=== PATIENT | female | born 1955 | race Caucasian/White ===

== ENCOUNTER 2021-03-27 18:45 | Emergency (ER) | payer MEDICARE, SELFPAY ==
[2021-03-27 18:55] VITALS: BP 131/81; PULSE 69; RESP 18; TEMP 36.7; O2SAT 100; BMI 24.3
--- NOTE | 2021-03-27 19:14 | HMH.EDUTC ---
[facility] – [place] Disposition Clinical Impression: Exposure to COVID-19 virus Disposition: Home, Self-Care Condition on Discharge: Good Instructions: Preventing the Spread of Coronavirus Discharge Instructions Additional Instructions: Drink plenty of fluids. Take tylenol for pain or fever. Return if you begin to have difficulty breathing. Follow up with your regular doctor. GO TO THE ER FOR ANY WORSENING SYMPTOMS Referrals: Faina Benson MD [Primary Care Provider] - Time of Disposition: 19:15 Medical Decision Making - Medical Records Medical records reviewed: No: I reviewed the patient's medical records. - Yeison Inquiry Pt receiving controlled substance: No Vital Signs: 03/27/21 18:55 03/27/21 19:16 Temperature 98.1 F 98.1 F Temperature Source Oral Pulse Rate 69 Pulse Rate [Left Brachial] 69 Respiratory Rate 18 18 Blood Pressure 131/81 Blood Pressure [Left Arm] 131/81 Blood Pressure Mean [Left Arm] 97 Blood Pressure Source [Left Arm] Automatic Cuff Blood Pressure Position [Left Arm] Sitting 02 Sat by Pulse Oximetry 100 Oxygen Delivery Method Room Air Orders (Tests/Meds): ORDERS Category Date Time Status Covid-19 Nasal PCR ([facility]) Routine Lab 03/27/21 19:00 Received [facility] [place] HPI - General Stated complaint: covid test Time Seen by Provider: 03/27/21 19:14 Mode of Arrival: Ambulatory Source of Information: Patient Limitations: No Limitations Description of Symptoms (Recalled from Triage Doc. by RN): PATIENT IS NEEDING COVID TEST FOR INTERNATIONAL TRAVEL HEENT Symptoms (Recalled from RN notes): No Resp Symptoms (Recalled from RN notes): No Skin Symptoms (Recalled from RN notes): No MS Symptoms (Recalled from RN notes): No Functional Status (Recalled from RN notes): WNL - History of Present Illness Provider Complaint: She is here for a covid test. - Worker's Comp Is this a Worker's Comp case?: No [facility] History - Hepatitis A Screen Drug use history?: No High risk sexual behaviors?: No History of sexually transmitted infection?: No Currently employed?: No Childcare worker?: No Do you have indoor plumbing?: Yes Do you have electricity?: Yes Attestation statement:: This patient has been screened for Hepatitis A risk factors. I have reviewed the patient's past medical history: Yes ROS Obtained: Yes All systems reviewed & no additional complaints - Constitutional Constitutional: Reports system reviewed and no additional complaints, except as docu - Eyes Eyes: Reports system reviewed and no additional complaints, except as docu - ENT Ears, Nose, Mouth, and Throat: Reports system reviewed and no additional complaints, except as docu - Cardiovascular Cardiovascular: Reports system reviewed and no additional complaints, except as docu - Respiratory Respiratory: Reports system reviewed and no additional complaints, except as docu - Gastrointestinal Gastrointestingal: Reports: system reviewed and no additional complaints, except as docu Physical Exam - General General appearance: alert, in no apparent distress - Head Head exam: atraumatic, normocephalic, normal inspection - Eye Eye exam: Present: normal appearance, PERRL, EOMI - ENT ENT exam: Present: normal exam, normal oropharynx, mucous membranes moist, TM's normal bilaterally, normal external ear exam - Neck Neck exam: Present: normal inspection, full ROM, trachea midline. Absent: meningismus, lymphadenopathy - Chest Chest inspection: Present: normal inspection, symmetric chest wall rise. Absent: tenderness - Respiratory Respiratory exam: Present: normal lung sounds bilaterally. Absent: respiratory distress - Cardiovascular Cardiovascular exam: Present: regular rate, normal rhythm. Absent: JVD - Abdominal Exam Abdominal exam: Present: soft, normal bowel sounds. Absent: distention, tenderness, guarding - Extremities Exam Extremities exam: Present: normal inspection, full ROM, normal
[2021-03-27 19:16] VITALS: BP 131/81; PULSE 69; RESP 18; TEMP 36.7; O2SAT 100
== END 2021-03-27 19:19 | disposition home or self-care (01) ==
PROVIDERS: Emergency Provider Nurse Practitioner Family; PCP Pediatrics
DX: Z11.52 Encounter for screening for COVID-19 (principal)
CPT/HCPCS: G0463; 99202; U0003

== ENCOUNTER 2022-03-22 11:42 | Emergency (ER) | payer MEDICARE, SELFPAY ==
--- NOTE | 2022-03-22 12:03 | XR_ITS ---
PROCEDURE INFORMATION: Exam: XR Right Foot Exam date and time: 03/22/2022 12:04 PM Age: 66 years old Clinical indication: Injury or trauma; Fall; Blunt trauma; Foot; Right; Patient HX: Patient fell down some steps yesterday. TECHNIQUE: Imaging protocol: XR Right foot. Views: 3 or more views. COMPARISON: CR XR ANKLE RT MIN 3V 03/22/2022 12:02 PM FINDINGS: Bones/joints: Acute minimally displaced, comminuted fracture of the 1st proximal phalanx with extension into the 1st MTP joint. Osteopenia. Partially imaged hardware in the distal tibia and fibula. Soft tissues: Similar punctate densities in the plantar soft tissues of the midfoot. IMPRESSION: Acute minimally displaced, comminuted fracture of the 1st proximal phalanx with extension into the 1st MTP joint.
--- NOTE | 2022-03-22 12:03 | XR_ITS ---
PROCEDURE INFORMATION: Exam: XR Right Ankle Exam date and time: 03/22/2022 12:02 PM Age: 66 years old Clinical indication: Injury or trauma; Fall; Blunt trauma; Prior surgery; Surgery date: 6+ months; Surgery type: Patient had right ankle surgery 6 years ago when she fell down some steps. ; Patient HX: Fell down steps yesterday. TECHNIQUE: Imaging protocol: XR Right ankle. Views: 3 or more views. COMPARISON: No relevant prior studies available. FINDINGS: Bones/joints: No acute fracture or malalignment. Status post ORIF of the lateral malleolus and distal tibia. Hardware appears intact. Osteopenia. Soft tissues: Normal. IMPRESSION: No acute fracture or malalignment.
[2022-03-22 12:27] VITALS: BP 112/76; PULSE 66; RESP 19; TEMP 36.9; O2SAT 100; BMI 25.0
--- NOTE | 2022-03-22 12:37 | HMH.EDUTC ---
[facility] Clinical Impression: Fracture, toe Qualifiers: Encounter type: initial encounter Toe: great toe Fracture type: closed Phalanx: proximal Fracture alignment: nondisplaced Laterality: right Qualified Code(s): S92.414A - Nondisplaced fracture of proximal phalanx of right great toe, initial encounter for closed fracture Disposition: Home, Self-Care Condition on Discharge: Good Instructions: Toe Fracture, DI for Toe Fracture, How To Perform RICE (Rest, Ice, Compress, Elevate), Ibuprofen, How to Use a Walking Boot Additional Instructions: *weight bearing as tolerated *RICE, Rest the extremity, Ice 15-20 minutes 3-4 times daily, Compress- wear the dustin wrap as discussed as much as possible to help reduce swelling and pain, Elevate the extremity when at rest *Dustin wrap/Walking boot is for support and help control swelling, use it except in the shower. Be sure that is not to tight but not to loose either *Elevate when resting *Ibuprofen 600-800mg every 6-8 hours as needed for pain an inflammation. If need something more can take Tylenol in between doses of Ibuprofen to help Immediately follow up with your family doctor for new or worsening of symptoms, or no noticeable improvement over the next 3-5 days Call Orthopedic office in the morning to make appointment with Dr Kearney on Wednesday You was given an order for repeat xray of foot on Wednesday prior to appointment so make sure that you arrive early for that appointment Return if needed Straight to ER if any life threatening Referrals: Provider,MD Teofilo [Primary Care Provider] - Bijan Kearney JR, MD [Physician] - 03/27/22 (Call office in the morning for appointment for Wednesday make sure to arrive early for repeat xray of foot) Time of Disposition: 12:49 Medical Decision Making - Yeison Inquiry Pt receiving controlled substance: No Yeison was queried for this patient: No Vital Signs: 03/22/22 12:27 Temperature 98.4 F Temperature Source Oral Pulse Rate [Left] 66 Respiratory Rate 19 Blood Pressure [Right Arm] 112/76 Blood Pressure Mean [Right Arm] 88 02 Sat by Pulse Oximetry 100 - Radiology Data #1 Image(s): Ankle Image Reviewed: Yes I reviewed the patient's radiology image Preliminary Findings: No Fracture Seen Hardware appears intake no acute fractures or changes #2 Image(s): Foot/Toes Image Reviewed: Yes I have reviewed radiologist's interpretation Acute minimally displaced, comminuted fracture of the 1st proximal phalanx with extension into the 1st MTP joint. - Physician Consults Physician Consulted: Dr Kearney Time: 12:41 Reason -: Orthopedic Eval/Care Comment/Response: Spoke with Dr Kearney he advised to place patient in Post op shoe or Walking boot and he would see her in the office on Wednesday and wanted to have patient repeat xray prior to appointment Patient to be given outpt order for xray Medical Decision Narrative: Dr Kearney requesting repeat xray of foot prior to appointment and will see her in the office on Wednesday patient will be given outpatient order for xray [facility] [facility] [place] - General Stated complaint: AO 03/21 rt foot pain Time Seen by Provider: 03/22/22 12:37 Mode of Arrival: Ambulatory Source of Information: Patient Limitations: No Limitations Description of Symptoms (Recalled from Triage Doc. by RN): pt fell down the stairs yesterday. hurt big toe on right foot HEENT Symptoms (Recalled from RN notes): No Resp Symptoms (Recalled from RN notes): No Skin Symptoms (Recalled from RN notes): No MS Symptoms (Recalled from RN notes): No Functional Status (Recalled from RN notes): wnl - History of Present Illness Provider Complaint: Patient states that she was coming down the stairs yesterday when she fell and hurt her right foot States that she has been having swelling and bruising to her right great toe and hurts when she tries to walk on it State that today the bruising was worse so she came in Denies any other injury - Rela
[2022-03-22 12:57] VITALS: BP 112/76; PULSE 66; RESP 19; TEMP 36.9
== END 2022-03-22 12:58 | disposition home or self-care (01) ==
PROVIDERS: Emergency Provider Nurse Practitioner
DX: S92.414A Nondisplaced fracture of proximal phalanx of right great toe, initial encounter for closed fracture (principal)
CPT/HCPCS: 73610; 73630; 99213; G0463

== ENCOUNTER 2022-09-25 08:24 | Emergency (ER) | payer MEDICARE, SELFPAY ==
[2022-09-25 09:00] VITALS: BP 153/75; PULSE 72; RESP 22; TEMP 37.1; O2SAT 97; BMI 25.8
--- NOTE | 2022-09-25 09:27 | EXP.UTC ---
Discharge Plan Disposition Patient Disposition: Home, Self-Care Condition: Good Prescriptions Prescriptions: New sulfamethoxazole-trimethoprim [Bactrim DS] 800-160 mg tablet 1 tab PO Q12H Qty: 20 0RF mupirocin 2 % ointment 1 applic topical TID Qty: 22 0RF Rx Instructions: apply to area on right upper leg cephalexin 500 mg tablet 500 mg PO QID 10 Days Qty: 40 0RF Referrals Follow up/Referrals: Faina Benson MD [Primary Care Provider] - See instructions Activity Restrictions/Add. Instructions Additional Instructions/Restrictions: *Start antibiotic(s) immediately and be sure to take as ordered for the FULL length of time although you may be feeling better or start to see improvement in the next 24-48 hours *Monitor closely. Outlined redness so that you can monitor easier. Follow up immediately for new or worsening symptoms including but not limited to redness, swelling, streaking from site fever or chills. *Warm compress 15 minutes 3-4 times day, sitting in warm epson salt water may help also *Never squeeze or pop these on your own. Seek immediate medical attention next time this occurs *Monitor Temp. Tylenol every 4 hours as needed and ibuprofen every 6 hours as needed (as long as your primary care doctor has told you that it is ok to take both. For fever, aches, pain. ER if no less that 101 despite Tylenol and ibuprofen ?Follow up with your family doctor/primary care physician in the next 48-72 hours if no improvement Straight to ER if any life threatening symptoms Clinical Impressions Clinical Impression: Cellulitis Instructions Patient Instructions: Cellulitis, Cephalexin, Trimethoprim/Sulfamethoxazole (Alternative Therapy), Mupirocin Discharge ED Provider: Radha Porras [facility] [place] General Stated complaint: No accident, right leg bump and redness Mode of Arrival: Ambulatory Source of Information: Patient Limitations: No Limitations Time Seen by Provider: 09/25/22 09:27 Description of Symptoms (Recalled from Triage Doc. by RN): PATIENT C/O AN AREA OF REDNESS AND WARMTH TO RIGHT UPPER THIGH THAT STARTED WEDNESDAY MORNING AND HAS GOTTEN WORSE HEENT Symptoms (Recalled from RN notes): No Resp Symptoms (Recalled from RN notes): No Skin Symptoms (Recalled from RN notes): Yes MS Symptoms (Recalled from RN notes): No Functional Status (Recalled from RN notes): WNL History of Present Illness Provider Complaint: Patient states she noticed small hard area on her right upper thigh/buttock area on Wed that was a little sore States that since then it has continued to get worse States that today it was hurting when she would sit on that side and was worried because it was getting bigger so she came in Related Data Previous Rx's Medication Instructions Recorded cephalexin 500 mg tablet 500 mg PO QID 10 days #40 tabs 09/25/22 mupirocin 2 % topical ointment 1 applic topical TID #22 grams 09/25/22 sulfamethoxazole 800 1 tab PO Q12H #20 tabs 09/25/22 mg-trimethoprim 160 mg tablet (Bactrim DS) Allergies Allergy/AdvReac Type Severity Reaction Status Date / Time No Known Allergies Allergy Verified 03/22/22 12:26 Worker's Comp Is this a Worker's Comp case?: No PFSH PFSH Medical History (Updated 09/25/22 @ 09:40 by Radha Porras APRN) Depression Hyperlipidemia Surgical History (Updated 09/25/22 @ 09:21 by Pauline Patel RN) History of appendectomy History of cholecystectomy History of hysterectomy Social History (Updated 09/25/22 @ 09:21 by Pauline Patel RN) Smoking Status: Unknown if ever smoked alcohol intake: never current occupational status: other Travel in the last 8 weeks: None ROS Obtained: Yes All systems reviewed & no additional complaints except as documented and Yes Systems reviewed as appropriate & no additional complaints except as documented Constitutional Constitutional: Reports system reviewed and no additional complaints, except as documented, Repor
[2022-09-25 09:49] VITALS: BP 153/75; PULSE 72; RESP 22; TEMP 37.1; O2SAT 97
== END 2022-09-25 09:53 | disposition home or self-care (01) ==
PROVIDERS: Emergency Provider Nurse Practitioner; PCP Pediatrics
DX: L03.115 Cellulitis of right lower limb (principal)
CPT/HCPCS: 99212; G0463

== ENCOUNTER 2024-08-08 13:23 | Emergency (ER) | payer MEDICARE, SELFPAY ==
--- NOTE | 2024-08-08 13:33 | XR_ITS ---
FINAL REPORT CLINICAL HISTORY: pain, stubbed pinky toe, c/o bruising and pain COMPARISON: 08/15/2017 FINDINGS: Three views show a mildly displaced corner fracture along the medial base of the 5th proximal phalanx. Fracture line extends into the MTP joint. There is mild calcaneal spurring. The joint spaces otherwise appear normal. IMPRESSION: 5th proximal phalanx fracture. Reviewed, Interpreted and Dictated by Marcus Chaudhary MD Transcribed by Vonnie Silver Authenticated and [facility]
[2024-08-08 13:45] VITALS: BP 130/76; PULSE 69; RESP 16; TEMP 36.6; O2SAT 99; BMI 25.8
--- NOTE | 2024-08-08 14:06 | EXP.UTC ---
Discharge Plan Disposition Patient Disposition: Home, Self-Care Condition: Good Prescriptions Prescriptions: No Action sulfamethoxazole-trimethoprim [Bactrim DS] 800-160 mg tablet 1 tab PO Q12H Qty: 20 0RF mupirocin 2 % ointment 1 applic topical TID Qty: 22 0RF Rx Instructions: apply to area on right upper leg cephalexin 500 mg tablet 500 mg PO QID 10 Days Qty: 40 0RF Referrals Follow up/Referrals: Faina Benson MD [Primary Care Provider] - See instructions Lenora Bhardwaj APRN [Nurse Practitioner] - See instructions Huma Mei DPM [Staff Physician] - See instructions Activity Restrictions/Add. Instructions Additional Instructions/Restrictions: *weight bearing as tolerated *RICE, Rest the extremity, Ice 15-20 minutes 3-4 times daily, Compress- wear the abdirizak wrap as discussed as much as possible to help reduce swelling and pain, Elevate the extremity when at rest *Walking boot is for support and help control swelling, use it except in the shower. Be sure that is not to tight but not to loose either *Elevate when resting? *Ibuprofen 600-800mg every 6-8 hours as needed for pain an inflammation. If need something more can take Tylenol in between doses of Ibuprofen to help Immediately follow up with your family doctor for new or worsening of symptoms, or no noticeable improvement over the next 3-5 days Follow up with Podiatry if no improvement or any worsening of symptoms Clinical Impressions Clinical Impression: Fracture, toe Qualifiers: Encounter type: initial encounter Toe: great toe Fracture type: closed Phalanx: proximal Fracture alignment: nondisplaced Laterality: right Qualified Code(s): S92.414A - Nondisplaced fracture of proximal phalanx of right great toe, initial encounter for closed fracture Instructions Patient Instructions: How to Use a Walking Boot, DI for Toe Fracture, Toe Fracture Print Language Print Language: Mongolian Discharge ED Provider: Radha Porras [facility] [place] [place] HPI General Stated complaint: left foot pain Mode of Arrival: Ambulatory Source of Information: Patient Limitations: No Limitations Time Seen by Provider: 08/08/24 13:50 Description of Symptoms (Recalled from Triage Doc. by RN): Reports stubbing her foot on an object and hurt her left foot. HEENT Symptoms (Recalled from RN notes): No Resp Symptoms (Recalled from RN notes): No Skin Symptoms (Recalled from RN notes): No MS Symptoms (Recalled from RN notes): Yes Functional Status (Recalled from RN notes): wnl History of Present Illness Provider Complaint: Patient states that she was helping her son move and she stubbed her little toe States for the last couple of days she has been having pain and swelling in her left little toe and top of foot and hurting when she walks Related Data Previous Rx's ?Medication ?Instructions ?Recorded cephalexin 500 mg tablet 500 mg PO QID 10 days #40 tabs 09/25/22 mupirocin 2 % topical ointment 1 applic topical TID #22 grams 09/25/22 sulfamethoxazole 800 1 tab PO Q12H #20 tabs 09/25/22 mg-trimethoprim 160 mg tablet (Bactrim DS) Allergies Allergy/AdvReac Type Severity Reaction Status Date / Time No Known Allergies Allergy Verified 03/22/22 12:26 Worker's Comp Is this a Worker's Comp case?: No [facility] Disclaimer: The information contained in this section may have been updated after the patient was seen, as this information can be updated by other users. Medical History (Updated 08/08/24 @ 14:12 by Radha Porras APRN) Depression Hyperlipidemia Surgical History (Updated 09/25/22 @ 09:21 by Pauline Patel RN) History of hysterectomy History of cholecystectomy History of appendectomy Social History (Updated 09/25/22 @ 09:40 by Radha Porras APRN) Smoking Status: Unknown if ever smoked alcohol intake: never current occupational status: other Travel in the last 8 weeks: None ROS Obtained: Yes All systems reviewed & no additional complaints except as documented and Yes Systems reviewed as appropriate & no additional complaints except as documented Constitutional Constitutional: Reports system reviewed and no additional complaints, except as documented and Reports as per HPI ENT Ears, Nose, Mouth, and Throat: Reports system reviewed and no additional complaints, except as documented and Reports as per HPI Cardiovascular Cardiovascular: Reports system reviewed and no additional complaints, except as documented and Reports as per HPI Musculoskeletal Musculoskeletal: Reports system reviewed and no additional complaints, except as documented, Reports as per HPI and Reports other Comments: Pain swelling and bruising to left little toe and top of foot Physical Exam General General appearance: alert and in no apparent distress ENT ENT exam: Present mucous membranes moist Respiratory Respiratory exam: Present normal lung sounds bilaterally; Absent respiratory distress or wheezes Cardiovascular Cardiovascular exam: Present regular rate, normal rhythm and normal heart sounds Expanded Lower Extremity Exam Left: Foot/toe exam: Present tenderness, swelling and ecchymosis Top foot image: 1. mild bruising and swelling noted Neurovascular/Tendon exam: Present normal capillary refill Gait: observed and limited by pain Neurological Exam Neurological exam: Present alert, oriented X3 and normal gait Medical Decision Making Medical Records Screening: Per USPSTF and CDC recommendations, given the prevalence of disease in our region, it is our hospital?s policy to screen for HIV and viral Hepatitis for all patients aged 18 and over and those with ongoing risk factors. Yeison Inquiry Pt receiving controlled substance: No Yeison was queried for this patient: No Vital Signs: 08/08/24 13:45 Temperature 97.9 F Temperature Source Oral Pulse Rate [Radial] 69 Respiratory Rate 16 Blood Pressure [Right Arm] 130/76 Blood Pressure Mean [Right Arm] 94 Blood Pressure Source [Right Arm] Automatic Cuff Blood Pressure Position [Right Arm] Sitting 02 Sat by Pulse Oximetry 99 Oxygen Delivery Method Room Air Orders (Tests/Meds): ORDERS Category Date Time Status Foot XR left minimum 3 views [XR foot LT min 3V] Stat Exams 08/08/24 13:33 Taken Radiology Data #1: Image(s): Foot/Toes Image Reviewed: Yes I reviewed the patient's radiology image Fracture proximal phalanx 5th toe Medical Decision Narrative: Patient was given writen prescription to take to [facility] for short cam walking boot
[2024-08-08 14:17] VITALS: BP 130/76; PULSE 69; RESP 16; TEMP 36.6; O2SAT 99
== END 2024-08-08 14:18 | disposition home or self-care (01) ==
PROVIDERS: Emergency Provider Nurse Practitioner; PCP Pediatrics
DX: M79.672 Pain in left foot; W23.0XXA Caught, crushed, jammed, or pinched between moving objects, initial encounter; S92.502A Displaced unspecified fracture of left lesser toe(s), initial encounter for closed fracture
CPT/HCPCS: 73630; 99212; 99213; G0463

== ENCOUNTER 2024-11-03 11:00 | Outpatient (RCR) | payer MEDICARE, SELFPAY | END 2024-11-03 23:59 | disposition home or self-care (01) | LOC: PT 11:00 | PROVIDERS: PCP Pediatrics; Visit Provider Orthopaedic Surgery | DX: M17.12 Unilateral primary osteoarthritis, left knee (principal); Z96.652 Presence of left artificial knee joint | CPT/HCPCS: 97014; 97016; 97110; 97140; 97163; 97530; 97535; G0283 ==

== ENCOUNTER 2024-12-11 10:00 | Outpatient (RCR) | payer MEDICARE, SELFPAY | END 2024-12-13 23:59 | disposition home or self-care (01) | LOC: PT 10:00 | PROVIDERS: PCP Pediatrics; Visit Provider Orthopaedic Surgery | DX: Z96.652 Presence of left artificial knee joint (principal); M17.12 Unilateral primary osteoarthritis, left knee | CPT/HCPCS: 97110; 97164; 97530 ==

== ENCOUNTER 2024-12-22 08:00 | Outpatient (RCR) | payer MEDICARE, SELFPAY | END 2024-12-22 23:59 | disposition home or self-care (01) | LOC: PT 08:00 | PROVIDERS: Visit Provider Orthopaedic Surgery | DX: M17.12 Unilateral primary osteoarthritis, left knee (principal); Z96.652 Presence of left artificial knee joint | CPT/HCPCS: 97530 ==

== ENCOUNTER 2025-09-05 09:57 | Outpatient (CLI) | payer MEDICARE, SELFPAY ==
--- OUTSIDE RECORDS SUMMARY | 2025-08-22 15:00 | XMS_ITS | Encounter Summary ---
Author Organization [facility] Address [address] [place] [address] Care Team Providers Care Learning Center Coordinator Name Role Phone Faina Benson MD Primary Care Provider [phone] Reason for Referral * Occupational Therapy (Routine) - Closed Specialty Diagnoses / Procedures Referred By Contac t Referred To Contact Diagnoses Arthritis of carpometacarpal (CMC) joint of right thumb Procedures IN OFFICE/OUTPATIENT NEW MODERATE MDM 45 MINUTES Lul Mckeon MD 1760 [facility] [address] [place] [address] Phone: tel: fax: [facility] [address] [place] [address] [address] [place] [address] Phone: tel: fax: Referral ID Status Reason Start Date Expiration Date V isits Requested Visits Authorized [id number] Closed Specialty Services Required 08/22/2025 11/21/2026 1 1 Scheduling Instructions [facility] Hand - evaluate and treat They can be reached at [phone] Reason for Visit * Reason Comments Pain * Consultation (Routine) - Closed Specialty Diagnoses / Procedures Referred By Contact Referred To Contact Orthopedic Surgery Diagnoses Right wrist pain Chronic pain of right thumb Procedures IN OFFICE/OUTPATIENT NEW MODERATE MDM 45 MINUTES Faina Benson MD 100 [facility] 200 [place] [address] Phone: tel: fax: [facility] [address] [address] Phone: tel: fax: Referral ID Status Reason Start Date Expiration Date V isits Requested Visits Authorized [id number] Closed Specialty Services Required 08/07/2025 11/06/2026 1 1 Encounter Details Date Type Department Care Team (Late st Contact Info) Description 08/22/2025 3:00 PM EDT Office Visit [facility] [address] [place] [address] Lul Mckeon MD 1760 [place] [address] Arthritis of carpometacarpal (CMC) joint of right thumb (Primary Dx) Social History Tobacco Use Types Packs/Day Years Used Date Smoking Tobacco: Never Passive Smoke Exposure: Never Smokeless Tobacco: Never Alcohol Use Standard Drinks/Week Comments Yes 0 (1 standard drink = 0.6 oz pure alcohol) 1 glass of wine twice per month PHQ-2 Answer Date Recorded Retired PHQ-9: Brief Depression Severity Measure Score 0 05/11/2023 Abuse Screen Answer Date Recorded Feels Unsafe at Home or Work/School no 09/13/2024 Feels Threatened by Someone no 08/17 Does Anyone Try to Keep You From Having Contact with Others or Doing Things Outside Your Home? no 09/13/2024 Physical Signs of Abuse Present no 09/13/2024 Education Answer Date Recorded Help with school or training? 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 [facility] Office Visit Date: 08/22/2025 Patient Name: Nereyda Butt Date of : 1955 Referring Physician: Faina Benson MD Chief Complaint: Chief Complaint Patient presents with Right Hand - Pain History of Present Illness: Nereyda Butt is a 70 y.o. female presents for evaluation of right basilar thumb pain of over 10 months duration. Reports pain is a 4 out of 10. Reports it is worse with use activity or gripping heavy objects. She has tried bracing anti-inflammatories and oral steroids with minimal improvement inher symptoms. She works as a pharmacist. She denies smoking. She has no other relevant medical history. Subjective Review of Systems: Review of Systems Constitutional: Negative for chills, fever, unexpected weight gain and unexpected weight loss. HENT: Negative for congestion, postnasal drip and rhinorrhea. Eyes: Negative for blurred vision. Respiratory: Negative for shortness of breath. Cardiovascular: Negative for leg swelling. Gastrointestinal: Negative for abdominal pain, nausea and vomiting. Genitourinary: Negative for difficulty urinating. Musculoskeletal: Positive for arthralgias. Negative for gait problem, joint swelling and myalgias. Skin: Negative for skin lesions and wound. Neurological: Negative for dizziness, weakness, light-headedness and numbness. Hematological: Does not bruise/bleed easily. Psychiatric/Behavioral: Negative for depressed mood. Pertinent review of systems per HPI. I reviewed the patient's chief complaint, history of present illness, review of systems, past medical history, surgical history, family history, social history, medications and allergy list in the EMR on 08/22/2025 and agree with the findings above. Objective Vital Signs: Vitals: 08/22/25 1504 BP: 126/78 Weight: 75.2 kg (165 lb 12.8 oz) Height: 169.5 cm (66.73 ) BMI: Body mass index is 26.18 kg/m??. General Appearance: No acute distress. Alert and oriented. Chest: Non-labored breathing on room air. Regular rate and rhythm. Upper Extremity Exam: Patient right thumb CMC. Positive CMC shuck test. Positive grind test. Negative Mango's test.Nontender at the thumb A1 yvan. Negative Tinel over the right carpal tunnel. Negative carpal compression test. Fingers are warm, well-perfused with appropriate capillary refill. Palpable radial pulse. Sensation intact to light touch in median, radial and ulnar nerve distributions. Motor- Fires FPL, ulnar intrinsics, EPL/EDC w/ full active and passive range of motion. Strength intact. Non-tender except for in the areas highlighted Imaging/Studies: Imaging Results (Last 24 Hours) No results found for the last 24 hours. X-ray of the right hand from 06/04/2025 was independently reviewed inter myself demonstrates evidence of moderate to severe right thumb CMC arthritis. EMG nerve conduction studies from outside hospital were independently reviewed interpreted and demonstrate mild right carpal tunnel syndrome Procedures: Procedures Quality Measures: ACP: ACP discussion was deferred. Tobacco: Nereyda Butt reports that she has never smoked. She has never been exposed to tobacco smoke. Efraíns never used smokeless tobacco. Assessment / Plan Assessment/Plan: There are no diagnoses linked to this encounter. Nereyda Rodriguez a 70 y.o. female who presents with: ICD-10-CM ICD-9-CM 1. Arthritis of carpometacarpal (CMC) joint of right thumb M18.11 716.94 Patient presents for evaluation of right basilar thumb pain with evidence of moderate to severe right thumb CMC arthritis. We discussed her diagnosis as well as treatment options going bracing anti-inflammatories corticosteroid injection and surgery. Patient like to trial nonoperative treatment of the right thumb Comfort Cool brace and referral to physical therapy for activity modifications and custom brace. Recommend patient follow-up with me in 3 months for repeat exam Follow Up: Return in about 3 months (around 11/22/2025). Lul Mckeon MD [facility] [place] Hand and Upper Extremity Surgeon documented in this encounter Plan of Treatment Upcoming Encounters Date Type Department Care Team (Late st Contact Info) Description 09/18/2025 8:00 AM EST Office Visit [facility] [address] [address] Adán Contreras MD [address] [address] 11/27/2025 8:30 AM EST Office Visit [facility] [address] [address] Faina Benson MD [address] [address] 12/05/2025 3:00 PM EST Office Visit [facility] [address] [address] Lul Mckeon MD [address] [address] Scheduled Referrals Name Type Priority Associated Diagnoses Orde r Schedule Ambulatory Referral to Occupational Therapy for Evaluation & Treatment Outpatient Referral Routine Arthritis of carpometacarpal (CMC) joint of right thumb Ordered: 08/22/2025 documented as of this encounter Goals Goal Patient Goal Type Associated Problems Recent Progress Patient-Stated? Author Autogenera lara Goal Care Plan Autogenerated Problem No Adán Contreras MD documented as of this encounter Visit Diagnoses Diagnosis Arthritis of carpometacarpal (CMC) joint of right thumb- Primary documented in this encounter Additional Health Concerns Active Problems Noted Date Diagnosed Date Autogenerated Problem 07/11/2025 Assessment Noted Time PHQ-2 Depression Total Score: 1 07/16/20 24 8:32 AM EDT documented as of this encounter Care Teams Learning Center Coordinator Relationship Specialty Start Date End Date Faina Benson MD 100 [facility] 200 [place] [address] PCP - General Internal Medicine 09/15/16 documented as of this encounter
[2025-09-05 15:38] LABS: Influenza A, PCR Not Detected (NotDetected); Influenza B, PCR Not Detected (NotDetected)
[2025-09-05 18:06] LABS: Coronavirus 19, PCR Detected (NotDetected)
--- OUTSIDE RECORDS SUMMARY | 2025-09-06 12:58 | XMS_ITS | Encounter Summary ---
Author Organization [facility] Address [address] [place] [address] Care Team Providers Care Client Manager Large Law Name Role Phone Faina Benson MD Primary Care Provider [phone] Encounter Details Date Type Department Care Team (Late st Contact Info) Description 03/27/2025 Results Follow-Up [facility]EDIAT[facility] [address] [address] Faina Benson MD 100 [facility] 200 [place] [address] Social History Tobacco Use Types Packs/Day Years [...] or training? 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 on file documented as of this encounter Plan of Treatment Upcoming Encounters Date Type Department Care Team (Late st Contact Info) Description 09/18/2025 8:00 AM EST Office Visit [facility] [address] [address] Adán Contreras MD [address] [address] 11/27/2025 8:30 AM EST Office Visit [facility] [address] [address] Faina Benson MD [address] [address] 12/05/2025 3:00 PM EST Office Visit [facility] [address] [address] Lul Mckeon MD [address] [address] documented as of this encounter Visit Diagnoses Not on filedocumented in this encounter Additional Health Concerns Assessment Noted Time PHQ-2 Depression Total Score: 1 05/30/20 24 8:32 AM EDT documented as of this encounter Care Teams Client Manager Large Law Relationship Specialty Start Date End Date Faina Benson MD 100 [facility] 200 [place] [address] PCP - General Internal Medicine 09/15/16 documented as of this encounter
--- OUTSIDE RECORDS SUMMARY | 2025-09-06 12:58 | XMS_ITS | Encounter Summary ---
Author Organization [facility] Address [address] [place] [address] Care Team Providers Care Auctioneer Automobile Name Role Phone Faina Benson MD Primary Care Provider [phone] Encounter Details Date Type Department Care Team (Latest Contact Info) Description 08/22/2025 Travel Social History Tobacco Use Types Packs/Day Years [...] or training? Not on file Preferred Language Occitan 08/30/2024 PHQ-2 Answer Date Recorded Patient Health [...] Description 09/18/2025 8:00 AM EST Office Visit [facility] [address] [facility] 101 [place] [address] Adán Contreras MD [address] [address] 11/27/2025 8:30 AM EST Office Visit [facility] 100 [facility] 200 [place] [address] Faina Benson MD 100 [facility] 200 [place] [address] 12/05/2025 3:00 PM EST Office Visit [facility] [address] [address] Lul Mckeon MD [address] [address] documented as of this encounter Goals Goal Patient Goal Type Associated Problems Recent Progress Patient-Stated? Author Autogenera lara Goal Care Plan Autogenerated Problem No Adán Contreras MD documented as of this encounter Visit Diagnoses Not on filedocumented in this encounter Additional Health Concerns Active Problems Noted Date Diagnosed Date Autogenerated Problem 07/11/2025 Assessment Noted Time PHQ-2 Depression Total Score: 1 05/30/20 24 8:32 AM EDT documented as of this encounter Care Teams Auctioneer Automobile Relationship Specialty Start Date End Date Faina Benson MD 100 [facility] 200 [place] [address] PCP - General Internal Medicine 09/15/16 documented as of this encounter
--- OUTSIDE RECORDS SUMMARY | 2025-09-06 12:58 | XMS_ITS | Encounter Summary ---
Author Organization [facility] Address [address] [place] [address] Care Team Providers Care Medical Assembler Name Role Phone Faina Benson MD Primary Care Provider [phone] Encounter Details Date Type Department Care Team (Late st Contact Info) Description 06/30/2025 Results Follow-Up [facility]AT[facility] [address] [address] Faina Benson MD 100 [facility] 200 [place] [address] Social History Tobacco Use Types [...] or training? Not on file Preferred Language Andorran 08/30/2024 PHQ-2 Answer Date Recorded Patient Health [...] Description 09/18/2025 8:00 AM EST Office Visit [facility] [address] [address] Adán Contreras MD [address] [address] 11/27/2025 8:30 AM EST Office Visit [facility] [address] [address] Faina Benson MD [address] [address] 12/05/2025 3:00 PM EST Office Visit [facility] [address] [address] Lul Mckeon MD [address] [address] documented as of this encounter Visit Diagnoses Not on filedocumented in this encounter Additional Health Concerns Assessment Noted Time PHQ-2 Depression Total Score: 1 05/30/20 24 8:32 AM EDT documented as of this encounter Care Teams Medical Assembler Relationship Specialty Start Date End Date Faina Benson MD 100 [facility] 200 [place] [address] PCP - General Internal Medicine 09/15/16 documented as of this encounter
--- OUTSIDE RECORDS SUMMARY | 2025-09-06 12:58 | XMS_ITS | Clinical Summary ---
Author Organization [facility] Address [facility] [place] [address] Care Team Providers Care Color Paste Mixing Supervisor Name Role Phone Unavailable Primary Care Provider Unavailabl e Social History Tobacco Use Types Packs/Day Years Used Date Smoking Tobacco: Never Assessed Comments Unknown Sex and Gender Information Value Date Recorded Sex Assigned at Not on file Legal Sex Female 10:00 PM EDT Gender Identity Not on file Sexual Orientation Not on file Plan of Treatment Health Maintenance Due Date Last Done Comments Hepatitis C Screening 1955 Mammogram Screening 1994 Colonoscopy 1999 Shingrix (#1) 2004 DEXA Scan 2019 DTap,Tdap,and Td (2 - Td or Tdap) 11/15/2021 11/15/2011 Pneumococcal 50+ (3 of 3 - PCV20 or PCV21) 07/26/2024 07/26/2019, 11/15/2003 Influenza Vaccine (#1) 2025 RSV Vaccine (60+ or ) (1 - 1-dose 75+ series) 2029 HPV Aged Out No longer eligi ble based on patient's age to complete this topic Meningococcal conjugate cheyenne nt 4 (MCV4) Aged Out No longer eligible b ased on patient's age to complete this topic RSV Immunization (<20 months) Aged Out No longer eligible based on patient's age to complete this topic
--- OUTSIDE RECORDS SUMMARY | 2025-09-06 12:58 | XMS_ITS | Continuity of Care Document ---
[facility] Organization [facility] Address [address] [place] [address] Care Team Providers Care Director Targeted Marketing Name Role Phone Faina Benson MD Primary Care Provider [phone] Encounters Date Type Department Care Team Description 08/22/2025 Travel 08/22/2025 3:00 PM EDT Office Visit [facility]THOPEDICS [facility]IC[facility] [address] [facility] MED 101 [place] [address] Lul Mckeon MD Arthritis of carpometacarpal (CMC) joint of right thumb (Primary Dx) 07/03/2025 Refill [facility]ED[facility]ATRICS 100 [facility] 200 [place] [address] Faina Benson MD Situational mixed anxiety and depressive disorder 06/30/2025 Results Follow-Up [facility] 100 [facility] 200 [place] [address] Faina Benson MD 06/30/2025 Telephone [facility] 100 [facility] 200 [place] [address] Faina Benson MD 06/22/2025 Travel 06/22/2025 10:46 AM EDT - 06/22/2025 11:59 PM EDT Hospital Encounter [facility] NEUROLOGY DIAGNOSTICS [address] [facility] MED [address] [place] [address] Faina Benson MD Right hand pain; Paresthesias in right hand; Weakness of right hand Discharge Disposition: Home or Self Care 06/12/2025 Results Follow-Up [facility] 100 [facility] 200 [place] [phone] Faina Benson MD 06/06/2025 External PBMM Data [facility] [address] [facility] [place] [address] Pharmacy, Payor Data 06/04/2025 10:00 AM EDT - 06/04/2025 11:59 PM EDT Hospital Encounter [facility] XRAY AT [address] [address] Faina Benson MD Right hand pain Discharge Disposition: Home or Self Care 06/04/2025 Travel 06/04/2025 8:00 AM EDT Office Visit [facility] [address] [place] [address] Faina Benson MD Medicare annual wellness visit, subsequent (Primary Dx); Encounter for health maintenance examination in adult; Dyslipidemia; OAB (overactive bladder); Primary insomnia; Situational mixed anxiety and depressive disorder; Intraductal papilloma; Age-related osteoporosis without current pathological fracture; Right hand pain; Leukocytes in urine 05/22/2025 External PBMM Data [facility] [address] [place] [address] Pharmacy, Payor Data 04/17/2025 Refill [facility] [address] [place] [address] Faina Benson MD Situational mixed anxiety and depressive disorder 03/27/2025 Results Follow-Up [facility] [address] [place] [address] [address] [place] [address] Faina Benson MD 03/27/2025 Telephone [facility] 100 [facility] 200 [place] [address] Faina Benson MD 03/26/2025 Travel 03/26/2025 8:16 AM EDT - 03/26/2025 11:59 PM EDT Hospital Encounter [facility] [place] [facility] [address] [place] [address] Menopause Discharge Disposition: Home or Self Care 03/26/2025 8:16 AM EDT - 03/26/2025 11:59 PM EDT Hospital Encounter [facility] [address] [place] [address] Encounter for screening mammogram for breast cancer Discharge Disposition: Home or Self Care 03/08/2025 Refill [facility] 100 [facility] 200 [place] [address] Faina Benson MD Dyslipidemia 02/13/2025 Telephone [facility] 100 [facility] 200 [place] [address] Faina Benson MD REQUEST CALL BACK FROM NURSE 01/18/2025 [facility] INTERNAL MEDICINE & PEDIATRICS 100 [facility] 200 [place] [address] Faina Benson MD Situational mixed anxiety and depressive disorder 12/28/2024 [facility] INTERNAL MEDICINE & PEDIATRICS 100 [facility] 200 [place] [address] Faina Benson MD Situational mixed anxiety and depressive disorder 12/26/2024 Travel 12/26/2024 8:40 AM EST Office Visit [facility] [address] [facility] MED [address] [place] [address] Adán Contreras MD Primary osteoarthritis of right knee (Primary Dx); S/P TKR (total knee replacement), left; Right knee pain, unspecified chronicity 12/04/2024 Travel 12/04/2024 9:15 AM EST Office Visit [facility] 100 [facility] 200 [place] [address] Faina Benson MD Dyslipidemia (Primary Dx); Primary insomnia; Situational mixed anxiety and depressive disorder; OAB (overactive bladder); Menopause; Encounter for screening mammogram for breast cancer 10/24/2024 Travel 10/24/2024 9:00 AM EST Office Visit [facility] [address]60 [facility] 101 [place] [address] Adán Contreras MD Status post total left knee replacement (Primary Dx) 10/03/2024 Refill [facility] [address] [facility] 101 [place] [address] Almaz Clayton PA-C 10/03/2024 Travel 10/03/2024 1:30 PM EST Office Visit [facility] [address] [address] Almaz Clayton PA-Obdulia Status post total left knee replacement (Primary Dx) 09/27/2024 Refill [facility] [address] [address] Adán Contreras MD S/P TKR (total knee replacement), left 09/19/2024 Telephone [facility] [address] [facility] 101 [place] [address] Adán Contreras MD 09/13/2024 9:35 AM EDT Anesthesia Event Converted [facility] ANESTHESIA [address] [place] [address] 09/13/2024 Travel 09/13/2024 7:15 AM EDT - 09/13/2024 9:57 AM EDT Surgery [facility] OR [address] [place] [address] Adán Contreras MD TOTAL KNEE ARTHROPLASTY WITH KRISTIN ROBOT LEFT [40792 (CPT )] 09/13/2024 7:26 AM EDT Anesthesia Event [facility] OR [address] [place] [address] Tisha Velez MD 09/13/2024 5:37 AM EDT - 09/13/2024 5:21 PM EDT Hospital Encounter [facility] 3G [address] [place] [address] Adán Contreras MD S/P TKR (total knee replacement), left (Primary Dx); Primary osteoarthritis of left knee; Status post total left knee replacement; Arthritis of knee; OAB (overactive bladder); Situational mixed anxiety and depressive disorder; Primary insomnia; Intraductal papilloma; Other hyperlipidemia; Menopause Discharge Disposition: Home or Self Care 09/06/2024 Transitional Care Management Telephone Encounter [facility] [address] [address] Dejah Vazquez CMA 09/05/2024 Telephone [facility] [address] [address] [address] Adán Contreras MD 08/30/2024 Telephone [facility] [address] [address] Adán Contreras MD 08/30/2024 Travel 08/30/2024 2:45 PM EDT - 08/30/2024 11:59 PM EDT Hospital Encounter PSYCHIATRIC AT [address] [place] [address] Primary osteoarthritis of left knee Discharge Disposition: Home or Self Care 08/30/2024 1:30 PM EDT Pre-Admission Testing [facility] PREADMISSION T [address] [place] [phone] Primary osteoarthritis of left knee 08/29/2024 Telephone [facility] [address] [facility] 101 [place] [address] Adán Contreras MD 08/28/2024 Telephone [facility] [address] [facility] 101 [place] [address] Adán Contreras MD 06/19/2024 Refill [facility] 100 [facility] 200 [place] [address] Faina Benson MD Dyslipidemia; Situational mixed anxiety and depressive disorder 06/13/2024 1:00 PM EDT Office Visit [facility] [address] [facility] [address] [place] [phone] Adán Contreras MD Primary osteoarthritis of left knee (Primary Dx); Left knee pain, unspecified chronicity 05/30/2024 8:30 AM EDT Office Visit [facility] 100 [facility] 200 [place] [address] Faina Benson MD Medicare annual wellness visit, subsequent (Primary Dx); Encounter for health maintenance examination in adult; Dyslipidemia; OAB (overactive bladder); Primary insomnia; Situational mixed anxiety and depressive disorder; Chronic pain of left knee; Menopause 05/17/2024 Refill [facility]ATR[facility] 100 [facility] 200 [place] [address] Faina Benson MD Situational mixed anxiety and depressive disorder; Dyslipidemia 02/22/2024 Refill [facility] UROLOGY [address] [facility] MED [address] [place] [address] Dejah Park APRN OAB (overactive bladder); Urgency of urination 02/22/2024 Refill [facility]ED[facility]ATRICS 100 [facility] 200 [place] [address] Faina Benson MD Dyslipidemia 01/19/2024 Refill [facility]ED[facility]ATRICS 100 [facility] 200 [place] [address] Faina Benson MD Dyslipidemia 12/17/2023 Refill [facility]EDIATRICS 100 [facility] 200 [place] [address] Jered Wall MD Dyslipidemia (Primary Dx); Other hyperlipidemia 11/02/2023 Refill [facility]ED[facility]ATR[facility] 100 [facility] 200 [place] [address] Faina Benson MD Situational mixed anxiety and depressive disorder 10/13/2023 Telephone [facility]ATR[facility] 100 [facility] [address] [place] [phone] Faina Benson MD Prior Authorization (Vilazodone HCl 10MG tablets/) 08/10/2023 7:40 AM EDT Office Visit [facility] [address] [facility] 101 [place] [address] Adán Contreras MD Primary osteoarthritis of left knee (Primary Dx) 08/04/2023 Telephone [facility]ATR[facility] 100 [facility] 200 [place] [address] Faina Benson MD REFEFFAL 07/28/2023 9:10 AM EDT Lab [facility] [address] [place] [address] Low serum thyroid stimulating hormone (TSH); Other hyperlipidemia 06/10/2023 Refill [facility]ATR[facility] 100 [facility] 200 [place] [address] Faina Benson MD Other hyperlipidemia; Other depression; Generalized anxiety disorder 06/10/2023 Refill [facility]ATR[facility] [address] [facility] 200 [place] [address] Faina Benson MD Other depression; Generalized anxiety disorder 06/01/2023 [facility] [address] [place] [address] Bee Marie 05/24/2023 Telephone [facility]EDIATR[facility] [address] [place] [address] 200 [place] [address] Faina Benson MD 05/13/2023 External PBMM Data [facility] [address] [place] [address] Pharmacy, Payor Data 05/11/2023 10:39 AM EDT - 05/11/2023 11:59 PM EDT Hospital Encounter [facility] XRAY AT [address] [address] Faina Benson MD Discharge Disposition: Home or Self Care 05/11/2023 9:15 AM EDT Office Visit [facility] MEDIC[facility]EDIATR[facility] [address] [place] [address] Faina Benson MD Other hyperlipidemia (Primary Dx); OAB (overactive bladder); Primary insomnia; Intraductal papilloma; Menopause; Situational mixed anxiety and depressive disorder; Bilateral hip pain; Chronic pain of left knee; Leukocytes in urine 05/06/2023 Telephone [facility]ED[facility]AT[facility] [address] [place] [address] Faina Benson MD 05/06/2023 Refill [facility] 100 [facility] 200 [place] [address] Faina Benson MD Other hyperlipidemia; Other depression; Generalized anxiety disorder 04/26/2023 3:17 PM EDT - 04/26/2023 11:59 PM EDT Hospital Encounter [facility] [address] [facility] [address] [place] [phone] Faina Benson MD Visit for screening mammogram Discharge Disposition: Home or Self Care 02/22/2023 2:00 PM EDT Procedure visit [facility] [address] [facility] [address] [place] [address] Gil Hilario MD Lower urinary tract symptoms (LUTS) (Primary Dx); OAB (overactive bladder); Urgency of urination; Urge incontinence 01/26/2023 Telephone [facility] UROLOG[facility] [address] [facility] 502 [place] [address] Carito Shane MD 01/25/2023 Telephone [facility] UROLOGY [address] [facility] 502 [place] [address] Dejah Park APRN 01/21/2023 Telephone [facility] MEDICINE [facility]EDIATRICS 100 [facility] 200 [place] [address] Faina Benson MD CALL BACK 01/19/2023 Patient rounding ([facility] only) [facility] [address] [facility] [address] [place] [address] Sania Spencer 01/18/2023 1:00 PM EST Office Visit [facility]OLOG[facility] [address] [facility] 502 [place] [address] Dejah Park APRN Urinary tract infection without hematuria, site unspecified (Primary Dx); Urinary urgency; Urinary frequency; Urge incontinence 12/28/2022 Refill [facility]ATR[facility] 100 [facility] 200 [place] [address] Faina Benson MD Other depression; Generalized anxiety disorder; Other hyperlipidemia 12/23/2022 Telephone [facility]AT[facility] 100 [facility] [address] [place] [address] Faina Benson MD REFERRAL 07/08/2022 Refill [facility] 100 [facility] 200 [place] [address] Faina Benson MD Other depression; Generalized anxiety disorder; Other hyperlipidemia 04/09/2022 Refill [facility] 100 [facility] [address] [place] [address] Faina Benson MD Other hyperlipidemia; Other depression; Generalized anxiety disorder 02/11/2022 11:45 AM EDT Lab [facility] DRAW STATION 100 [facility] 200 [place] [address] 02/11/2022 10:30 AM EDT Office Visit [facility] 100 [facility] 200 [place] [address] Faina Benson MD Medicare annual wellness visit, initial (Primary Dx); Encounter for health maintenance examination in adult; Other hyperlipidemia; Other chest pain; Intraductal papilloma; Situational mixed anxiety and depressive disorder; Urinary urgency; Primary insomnia; High risk medication use 12/29/2021 10:30 AM EST Lab [facility] D[facility] 100 [facility] 200 [place] [address] 12/29/2021 9:00 AM EST Office Visit [facility]ATR[facility] 100 [facility] 200 [place] [address] Faina Benson MD Other hyperlipidemia (Primary Dx); Primary insomnia; Situational mixed anxiety and depressive disorder; Intraductal papilloma; Urinary urgency 12/09/2021 Telephone [facility]AT[facility] 100 [facility] [address] [place] [address] Faina Benson MD COVID POSITIVE 11/26/2021 Refill [facility]EDIATRICS 100 [facility] [address] [place] [address] Faina Benson MD Other depression; Generalized anxiety disorder 10/30/2021 Refill [facility]ATR[facility] 100 [facility] [address] [place] [address] Faina Benson MD Other hyperlipidemia 06/25/2021 9:40 AM EDT Lab [facility] 100 [facility] 200 [place] [address] 06/25/2021 8:30 AM EDT Office Visit [facility]ED[facility]ATR[facility] 100 [facility] [address] [place] [address] Faina Benson MD Other hyperlipidemia (Primary Dx); Primary insomnia; Situational mixed anxiety and depressive disorder; Acute midline low back pain with right-sided sciatica; Paresthesia of right upper extremity; Paresthesia of right lower extremity; Exposure to sexually transmitted disease (STD); Encounter for screening mammogram for breast cancer 04/29/2021 Refill [facility] 100 [facility] [address] [place] [address] Faina Benson MD Other depression; Generalized anxiety disorder 04/03/2021 Refill [facility]ATR[facility] 100 [facility] [address] [place] [address] Faina Benson MD Other hyperlipidemia 03/24/2021 Telephone [facility] 100 [facility] [address] [place] [address] Faina Benson MD ORDERS 02/06/2021 Refill [facility] 100 [facility] [address] [place] [address] Faina Benson MD Acute left-sided low back pain with left-sided sciatica 12/11/2020 9:15 AM EST Office Visit [facility] 100 [facility] [address] [place] [address] Faina Benson MD Other hyperlipidemia (Primary Dx); Primary insomnia; Situational mixed anxiety and depressive disorder; Exposure to sexually transmitted disease (STD); Need for immunization against influenza; Need for vaccination for pneumococcus 10/28/2020 Refill [facility] 100 [facility] [address] [place] [address] Faina Benson MD Other depression; Generalized anxiety disorder 10/01/2020 Refill [facility] 100 [facility] [address] [place] [address] Faina Benson MD Other hyperlipidemia (Primary Dx) 07/12/2020 3:30 PM EDT Clinical Support [facility] 100 [facility] [address] [place] [address] Candidal vaginitis 07/10/2020 Telephone [facility] 100 [facility] [address] [place] [address] Faina Benson MD 07/09/2020 Telephone [facility] 100 [facility] [address] [place] [address] Faina Benson MD POSITIVE TESTING 07/08/2020 8:30 AM EDT Office Visit [facility] 100 [facility] [address] [place] [address] Faina Benson MD Acute vaginitis (Primary Dx); Genital lesion, female; Dysuria; High risk heterosexual behavior 06/05/2020 9:25 AM EDT - 06/05/2020 11:59 PM EDT Hospital Encounter PSYCHIATRIC [place] [address] [place] [address] Samuel Akbar MD Localized swelling, mass and lump, trunk Discharge Disposition: Home or Self Care 05/13/2020 Telephone [facility] 1760 [facility] [address] [place] [address] Nena Hassan RN 05/10/2020 10:12 AM EDT - 05/10/2020 11:59 PM EDT Hospital Encounter [facility] 1760 ULTRASOUND 1760 [facility] [address] [place] [address] Abnormal mammogram Discharge Disposition: Home or Self Care 05/10/2020 9:00 AM EDT - 05/10/2020 11:59 PM EDT Hospital Encounter [facility] [address] [address] Faina Benson MD Abnormal mammogram Discharge Disposition: Home or Self Care 04/18/2020 Telephone [facility]ED[facility]AT[facility] [address] [place] [address] [address] [place] [address] Faina Benson MD 04/17/2020 10:00 AM EDT Office Visit [facility] [address] [address] Faina Benson MD Other hyperlipidemia (Primary Dx); Intraductal papilloma; Primary insomnia; Situational mixed anxiety and depressive disorder; Encounter for screening mammogram for breast cancer 04/11/2020 Telephone [facility] [address] [place] [address] [address] [place] [address] Faina Benson MD CLEARANCE STATEMENT 04/04/2020 Refill [facility] 100 [facility] 200 [place] [address] Faina Benson MD 08/21/2019 Refill [facility] [address] [address] Faina Benson MD 07/26/2019 10:08 AM EDT - 07/26/2019 11:59 PM EDT Hospital Encounter [facility] XRAY AT [address] [address] Faina Benson MD Acute midline thoracic back pain Discharge Disposition: Home or Self Care 07/26/2019 8:45 AM EDT Office Visit [facility] PEDIATR[facility] [address] [place] [phone] Faina Benson MD Other hyperlipidemia (Primary Dx); Primary insomnia; Acute midline thoracic back pain; Memory difficulties; Need for hepatitis A vaccination; Need for pneumococcal vaccine 01/04/2019 8:30 AM EST - 01/04/2019 11:59 PM EST Hospital Encounter [facility] [address] [address] Samuel Akbar MD Mass of upper inner quadrant of left breast Discharge Disposition: Home or Self Care 11/21/2018 9:30 AM EST Office Visit [facility] [address] [place] [address] Faina Benson MD Other hyperlipidemia (Primary Dx); Primary insomnia; Other depression; Generalized anxiety disorder; High risk medication use; Need for influenza vaccination; Need for hepatitis A vaccination 08/22/2018 9:00 AM EDT Clinical Support [facility] [address] [place] [address] Usha Jimenez Family history of breast cancer (Primary Dx); Atypical ductal hyperplasia of breast 08/10/2018 12:15 PM EDT - 08/10/2018 11:59 PM EDT Hospital Encounter [facility] XRAY AT [address] [address] Faina Benson MD Discharge Disposition: Home or Self Care 08/10/2018 11:00 AM EDT Office Visit [facility] 100 [facility] [address] [place] [address] Faina Benson MD Acute left-sided low back pain with left-sided sciatica (Primary Dx) 07/11/2018 Telephone [facility] [address] [place] [address] Lenora Fernandez 07/01/2018 9:59 AM EDT - 07/01/2018 11:59 PM EDT Hospital Encounter [facility] [address] [address] Mass of upper inner quadrant of left breast Discharge Disposition: Home or Self Care 07/01/2018 8:29 AM EDT - 07/01/2018 11:59 PM EDT Hospital Encounter [facility] [address] [address] Samuel Akbar MD Mass of upper inner quadrant of left breast Discharge Disposition: Home or Self Care 05/19/2018 8:45 AM EDT Office Visit [facility] [address] [place] [address] Faina Benson MD Other hyperlipidemia (Primary Dx); Intraductal papilloma of breast, left; High risk medication use 04/28/2018 Telephone [facility] [address] [address] Dee Hahn, RN MSN 04/27/2018 Telephone [facility] [facility] [address] [place] [address] [address] [place] [address] Faina Benson MD 04/26/2018 1:35 PM EDT - 04/26/2018 11:59 PM EDT Hospital Encounter [facility] [address] [facility] 3rd [place] [address] Faina Benson MD Other chest pain Discharge Disposition: Home or Self Care 04/21/2018 12:33 PM EDT - 04/21/2018 11:59 PM EDT Hospital Encounter [facility] [address] [facility] MED [address] [place] [address] Breast mass Discharge Disposition: Home or Self Care 04/21/2018 12:32 PM EDT - 04/21/2018 11:59 PM EDT Hospital Encounter [facility] [address] [facility] [address] [address] Breast mass Discharge Disposition: Home or Self Care 04/21/2018 12:30 PM EDT - 04/21/2018 11:59 PM EDT Hospital Encounter [facility] [address] [facility] [address] [address] Breast mass Discharge Disposition: Home or Self Care 04/21/2018 10:42 AM EDT - 04/21/2018 11:59 PM EDT Hospital Encounter [facility] [address] [facility] [address] [address] Breast mass Discharge Disposition: Home or Self Care 04/21/2018 8:45 AM EDT - 04/21/2018 11:59 PM EDT Hospital Encounter [facility] [address] [address] Faina Benson MD Breast mass Discharge Disposition: Home or Self Care 04/21/2018 8:30 AM EDT - 04/21/2018 11:59 PM EDT Hospital Encounter [facility] [address] [address] Faina Benson MD Menopause Discharge Disposition: Home or Self Care 04/06/2018 11:15 AM EDT Office Visit [facility] [address] [place] [address] [address] [place] [address] Faina Benson MD Encounter for health maintenance examination in adult (Primary Dx); Other chest pain; Breast mass; Primary insomnia; Other depression; Generalized anxiety disorder; Menopause; Seborrheic keratosis; Screening for cardiovascular condition; Family history of coronary artery disease 08/05/2017 Telephone [facility] [address] [facility] [address] [place] [address] Faina Benson MD 05/14/2017 Telephone [facility] [address] [facility] [address] [place] [address] Faina Benson MD 01/25/2017 Telephone [facility] [address] [facility] [address] [place] [address] Faina Benson MD 11/13/2016 Telephone [facility] [address] [facility] [address] [place] [address] Faina Benson MD 10/20/2016 Telephone [facility] [address] [place] [address] [address] [place] [address] Faina Benson MD 10/19/2016 10:40 AM EST - 10/19/2016 11:59 PM EST Hospital Encounter [facility] AT [address] [address] Faina Benson MD Discharge Disposition: Home or Self Care 10/19/2016 9:15 AM EST Office Visit [facility] [address] [place] [address] [address] [place] [address] Faina Benson MD Encounter for health maintenance examination in adult (Primary Dx); Acute midline low back pain with bilateral sciatica; Screening for cardiovascular condition; Hearing loss, bilateral 09/24/2016 8:30 AM EST Office Visit [facility] [address] [facility] [address] [place] [address] Faina Benson MD Chronic pain of right ankle (Primary Dx); Screening for cardiovascular condition; Screening for breast cancer; Screening for colon cancer 01/16/2015 Documentation Converted [facility] HISTORICAL CONV [address] [place] [address] Kedar Vu MD 07/24/2014 Documentation Converted [facility] HISTOR[facility]V [address] [place] [address] Kedar Vu MD 07/06/2014 Office Visit Converted [facility] [address] [facility] [address] [place] [address] Faina Benson MD Allergies No known active allergies Medications Mirabegron ER (Myrbetriq) 50 MG tablet sustained-release 24 hour 24 hr tabletIndications :OAB (overactive bladder) Take 50 mg by mouth Daily. 90 tablet 3 5 Active atorvastatin (LIPITOR) 20 MG tabletIndications :Dyslipidemia TAKE ONE TABLET BY MOUTH ONCE A DAY 30 tablet 5 5 Active ibandronate (Boniva) 150 MG tabletIndications :Age-related osteoporosis without current pathological fracture Take 1 tablet by mouth Every 30 (Thirty) Days. 1 tablet 11 5 Active Diclofenac Sodium (VOLTAREN) 1 % gel gelIndications:Ri ght hand pain 2 grams QID prn pain upper extremity joints and 4 grams QID pain lower extremity joints 100 g 5 5 Active vilazodone (VIIBRYD) 20 MG tablet tabletIndications :Situational mixed anxiety and depressive disorder TAKE ONE TABLET BY MOUTH ONCE A DAY 30 tablet 2 5 Active Active Problems Problem Noted Date Diagnosed Date Osteoporosis 06/12/2025 Overview (06/12/2025): Diagnosed 03/2025- right femoral neck. Osteopenia of the L1-L4 vertebrae, left femoral neck, and total hips bilaterally. Assessment & Plan (06/12/2025 7:17 PM EDT): Orders: ibandronate (Boniva) 150 MG tablet; Take 1 tablet by mouth Every 30 (Thirty) Days. Status post total left knee replacement 09/13/20 24 OAB (overactive bladder) 02/24/2023 Assessment & Plan (06/12/2025 7:17 PM EDT): Situational mixed anxiety and depressive disorde r 04/18/2020 Overview (04/18/2020): Dx 04/01 Assessment & Plan (06/12/2025 7:17 PM EDT): {Depression A/P Block (Optional):03703} Primary insomnia 11/21/2018 Assessment & Plan (06/12/2025 7:17 PM EDT): Intraductal papilloma 07/06/2018 Overview (03/20/2020): Dx 07/02- left breast Assessment & Plan (06/12/2025 7:17 PM EDT): Hyperlipidemia 05/19/2018 Overview (05/19/2018): Dx 04/01 Menopause 09/23/2016 Overview (09/24/2016): Description: 1994 (surgical)- took HRT x 15 years) Resolved Problems Problem Noted Date Diagnosed Date Resolved Date Arthritis of knee 09/13/2024 06/12/2025 Arthritis of knee 06/13/2024 09/13/2024 Primary osteoarthritis of left knee 06/13/2024 09/13/2024 Urge incontinence 02/24/2023 05/11/2023 Urgency of urination 02/24/2023 023 Lower urinary tract symptoms (LUTS) 02/24/2023 05/11/2023 Bilateral cataracts 09/24/2016 09/24/20 16 Overview (09/24/2016): Description: dx 2013 Chronic constipation 09/24/2016 019 Overview (09/24/2016): Description: dx approx 2009 Headache, migraine 09/24/2016 6 Overview (09/24/2016): Description: many years. Immunizations Immunization Administration Dates Next Due COVID-19 ([employer]) 03/24/2021 Covid-19 ([employer]) Day Cap Monovalent 04/01/2022 ,12/23/2021 Flu Vaccine Quad PF >36MO 12/29/2021 Fluad Quad 65+ 12/11/2020 Fluzone (or Fluarix & Flulaval for VFC) >6mos ,11/21/2018 Hepatitis A 07/26/2019,11/21/2018 Hepatitis B Adult/Adolescent IM 11/15/2007 Pneumococcal Conjugate 13-Valent (PCV13) 019 Pneumococcal Polysaccharide (PPSV23) 12/11/2020, 11/15/2003 Tdap 11/15/2011 Family History Medical History Relation Name Comments Hyperlipidemia Brother 002 2 brothers Coronary artery disease Father Olivia [place] age 64 Heart disease Father Olivia Stroke Mother 003 Breast cancer Niece 1 Breast cancer Niece 2 Stroke Paternal Grandfather 004 early 6 0's, Breast cancer Sister 1 001 age 45 Hyperlipidemia Sister 1 001 7 sisters Ovarian cancer Sister 2 30 Coronary artery disease Sister 3 Heart attack Sister 3 Other Son 1 005 Rodriguez Syndrome Other Son 2 Rodriguez Syndrome Aneurysm Neg Hx AAA Relation Name Status Comments Brother 002 Father Olivia (Age 66) [place] Mother 003 (Age 88) Niece 1 Niece 2 Alive Paternal Grandfather 004 Sister 1 001 Sister 2 Sister 3 (Age 65) Son 1 005 Alive Son 2 Alive Social History Smoking Status as of 09/06/2025 Tobacco Use Types Packs/Day Years Used Date Smoking Tobacco: Never Assessed PHQ-2 Answer Date Recorded Retired PHQ-9: Brief [...] or training? Not on file Preferred Language Estonian 08/30/2024 PHQ-2 Answer Date Recorded Patient Health Questionnaire-2 Score 0 06/04/2025 Sex and Gender Information Value Date Recorded Sex Assigned at Not on file Legal Sex Female 12:19 PM EDT Gender Identity Not on file Sexual Orientation Not on file Last Filed Vital Signs Vital Sign Reading Time Taken Comments Blood Pressure 126/78 08/22/2025 3:04 PM EDT Pulse 76 06/04/2025 8:10 AM EDT Temperature 36.7 C (98 F) 12/04/2024 9:19 AM EST Respiratory Rate 18 12/04/2024 9:19 AM EST Oxygen Saturation 97% 09/13/2024 2:42 PM EDT Inhaled Oxygen Concentration - - Weight 75.2 kg (165 lb 12.8 oz) 08/22/2025 3:04 PM EDT Height 169.5 cm (5' 6.73 ) 08/22/2025 3:04 PM ED T Body Mass Index 26.18 08/22/2025 3:04 PM EDT Plan of Treatment Upcoming Encounters Date Type Department Care Team (Late st Contact Info) Description 09/18/2025 8:00 AM EST Office Visit [facility] [address] [address] Adán Contreras MD [address] [address] 11/27/2025 8:30 AM EST Office Visit [facility] [address] [facility] [address] [place] [address] Faina Benson MD [address] [facility] [address] [place] [address] 12/05/2025 3:00 PM EST Office Visit [facility] [address] [address] Lul Mckeon MD 1760 [facility] Med [address] [place] [address] Medical Devices Implanted Type Area Manager Corporate Responsibility Device Identifier Shelf Expiration Date Model / Serial / Lot Dev Contrl Tiss Stratafix Spiral Pdo Bidir 1 [id number] - [id number] Implanted:Qty : 1 on 09/13/2024 by Adán Contreras MD at [facility] Implant Left: Knee [employer] J [employer] J 02/12/2026 [id number] / / [id number] Pat Triath Tritanium [id number] - [id number] Implanted:Qty : 1 on 09/13/2024 by Adán Contreras MD at [facility] Implant Left: Knee HENRY STEW [id number] 06/14/2029 [id number] / / [id number] Baseplt Tib Triath Tritanium Sz4 - [id number] Implanted:Qty : 1 on 09/13/2024 by Adán Contreras MD at [facility] Implant Left: Knee HENRY STEW [id number] 06/07/2029 [id number] / / [id number] Insrt Tib/Kn Triathlon Condy/Stbl X3 Sz4 9mm - [id number] Implanted:Qty : 1 on 09/13/2024 by Adán Contreras MD at [facility] Implant Left: Knee HENRY STEW [id number] 05/02/2029 [id number] / / [id number] Comp Fem Triath Cr Cmtls Sz4 Lt - [id number] Implanted:Qty : 1 on 09/13/2024 by Adán Contreras MD at [facility] Implant Left: Knee HENRY STEW [id number] 07/09/2029 [id number] / / [id number] Cp Henry Knee Triathlon Tritanium W/X3 - [id number] Implanted:Qty : 1 on 09/13/2024 by Adán Contreras MD at [facility] Implant Left: Knee HENRY STEW CAPSTRYKE RKNTRIATH LONTRITAN [id number] / / Procedures Procedure Name Priority Date/Time Associated Diagnosis Comments EMG 99795 (X1) & NCS 3-4 (94524) Routine 06/22/2025 11:15 AM EDT Right hand pain Paresthesias in right hand Weakness of right hand POCT URINALYSIS DIPSTICK, AUTOMATED Routine 06/04/2025 10:40 AM EDT Encounter for health maintenance examination in adult URINE CULTURE Routine 06/04/2025 10:34 AM EDT Leukocytes in urine XR HAND 3+ VW RIGHT Routine 06/04/2025 10:10 AM EDT Right hand pain CBC AND DIFFERENTIAL Routine 06/04/2025 9:05 AM EDT Dyslipidemia CBC WITH AUTO DIFFERENTIAL Routine 06/04/2025 9:05 AM EDT Dyslipidemia RHEUMATOID FACTOR Routine 06/04/2025 9:0 5 AM EDT Right hand pain TSH Routine 06/04/2025 9:05 AM EDT Dyslipidemia COMPREHENSIVE METABOLIC PANEL Routine 06/04/2025 9:05 AM EDT Dyslipidemia LIPID PANEL Routine 06/04/2025 9:05 AM EDT Dyslipidemia MAMMO SCREENING DIGITAL TOMOSYNTHESIS BILATERAL W CAD Routine 03/26/2025 8:59 AM EDT Encounter for screening mammogram for breast cancer DEXA BONE DENSITY AXIAL Routine 03/26/2025 8:38 AM EDT Menopause XR KNEE 3+ VW W SUNRISE LEFT Routine 12/26/2024 8:47 AM EST S/P TKR (total knee replacement), left XR KNEE 4+ VW RIGHT Routine 12/26/2024 8 :46 AM EST Right knee pain, unspecified chronicity CBC AND DIFFERENTIAL Routine 12/04/2024 9:39 AM EST Dyslipidemia CBC WITH AUTO DIFFERENTIAL Routine 12/04/2024 9:39 AM EST Dyslipidemia COMPREHENSIVE METABOLIC PANEL Routine 12/04/2024 9:39 AM EST Dyslipidemia LIPID PANEL Routine 12/04/2024 9:39 AM EST Dyslipidemia XR KNEE 3+ VW W SUNRISE LEFT Routine 10/24/2024 9:10 AM EST Status post total left knee replacement XR KNEE 3+ VW W SUNRISE LEFT Routine 10/03/2024 1:48 PM EST Status post total left knee replacement XR KNEE 1 OR 2 VW LEFT STAT 09/13/2024 10:07 AM EDT ANESTHESIA PERIPHERAL BLOCK Routine 09/13/2024 9:45 AM EDT SPINAL Routine 09/13/2024 7:44 AM EDT [place] ARTHRP KNE CONDYLE&PLATU MEDIAL&LAT COMPARTMENTS 09/13/2024 7:11 AM EDT Primary osteoarthritis of left knee Special Needs SUPINE, TRIATHALON CR, # POCT GLUCOSE FINGERSTICK Routine 09/13/2024 6:[address] LOWER EXTREMITY LEFT WO CONTRAST Routine 08/30/2024 3:05 PM EDT Primary osteoarthritis of left knee ECG 12-LEAD Routine 08/30/2024 2:15 PM EDT Primary osteoarthritis of left knee CBC AND DIFFERENTIAL Routine 08/30/2024 12:53 PM EDT Primary osteoarthritis of left knee CBC WITH AUTO DIFFERENTIAL Routine 08/30/2024 12:53 PM EDT Primary osteoarthritis of left knee NICOTINE AND METABOLITE, QUANT Routine 08/30/2024 12:53 PM EDT Primary osteoarthritis of left knee HEMOGLOBIN A1C Routine 08/30/2024 12:53 PM EDT Primary osteoarthritis of left knee APTT Routine 08/30/2024 12:53 PM EDT Primary osteoarthritis of left knee PROTIME-INR Routine 08/30/2024 12:53 PM EDT Primary osteoarthritis of left knee COMPREHENSIVE METABOLIC PANEL Routine 08/30/2024 12:53 PM EDT Primary osteoarthritis of left knee SCANNED - IMAGING 08/08/2024 XR KNEE 4+ VW LEFT Routine 06/13/2024 1: 25 PM EDT Left knee pain, unspecified chronicity POCT URINALYSIS DIPSTICK, AUTOMATED Routine 05/30/2024 9:41 AM EDT Encounter for health maintenance examination in adult CBC AND DIFFERENTIAL Routine 05/30/2024 9:34 AM EDT Encounter for health maintenance examination in adult Dyslipidemia CBC WITH AUTO DIFFERENTIAL Routine 05/30/2024 9:34 AM EDT Encounter for health maintenance examination in adult Dyslipidemia TSH Routine 05/30/2024 9:34 AM EDT Encounter for health maintenance examination in adult Dyslipidemia COMPREHENSIVE METABOLIC PANEL Routine 05/30/2024 9:34 AM EDT Encounter for health maintenance examination in adult Dyslipidemia LIPID PANEL Routine 05/30/2024 9:34 AM EDT Encounter for health maintenance examination in adult Dyslipidemia [place] ARTHROCENTESIS ASPIR&/INJ MAJOR JT/BURSA W/O US Routine 08/10/2023 8:21 AM EDT Primary osteoarthritis of left knee LAB VENIPUNCTURE (BILL ONLY) Routine 07/28/2023 9:12 AM EDT Routine general medical examination at a health care facility T4 Routine 07/28/2023 9:11 AM EDT Low serum thyroid stimulating hormone (TSH) Other hyperlipidemia TSH Routine 07/28/2023 9:11 AM EDT Low serum thyroid stimulating hormone (TSH) Other hyperlipidemia XR HIPS BILATERAL W OR WO PELVIS 3-4 VIEW Routine 05/11/2023 10:46 AM EDT Bilateral hip pain XR KNEE 1 OR 2 VW LEFT Routine 05/11/2023 10:46 AM EDT Chronic pain of left knee URINE CULTURE Routine 05/11/2023 10:31 AM EDT Leukocytes in urine POCT URINALYSIS DIPSTICK, AUTOMATED Routine 05/11/2023 10:30 AM EDT OAB (overactive bladder) CBC AND DIFFERENTIAL Routine 05/11/2023 10:17 AM EDT Other hyperlipidemia LIPID PANEL Routine 05/11/2023 10:17 AM EDT Other hyperlipidemia COMPREHENSIVE METABOLIC PANEL Routine 05/11/2023 10:17 AM EDT Other hyperlipidemia TSH Routine 05/11/2023 10:17 AM EDT Other hyperlipidemia MAMMO SCREENING DIGITAL TOMOSYNTHESIS BILATERAL W CAD Routine 04/26/2023 3:34 PM EDT Visit for screening mammogram POCT URINALYSIS DIPSTICK, AUTOMATED Routine 01/18/2023 1:21 PM EST Urinary tract infection without hematuria, site unspecified URINALYSIS AND MICROSCOPIC Routine 01/18/2023 12:00 AM EST CONV SPECIMEN STATUS REPORT Routine 01/18/2023 12:00 AM EST URINE CULTURE Routine 01/18/2023 12:00 AM EST AST Routine 02/11/2022 11:42 AM EDT High risk medication use ALT Routine 02/11/2022 11:42 AM EDT High risk medication use LIPID PANEL Routine 02/11/2022 11:42 AM EDT Other hyperlipidemia POCT URINALYSIS DIPSTICK, AUTOMATED Routine 12/29/2021 10:37 AM EST Urinary urgency CBC AND DIFFERENTIAL Routine 12/29/2021 9:49 AM EST Other hyperlipidemia LIPID PANEL Routine 12/29/2021 9:49 AM EST Other hyperlipidemia COMPREHENSIVE METABOLIC PANEL Routine 12/29/2021 9:49 AM EST Other hyperlipidemia TSH Routine 12/29/2021 9:49 AM EST Other hyperlipidemia CBC AND DIFFERENTIAL Routine 06/25/2021 9:40 AM EDT Other hyperlipidemia CBC WITH AUTO DIFFERENTIAL Routine 06/25/2021 9:40 AM EDT Other hyperlipidemia HEPATITIS C ANTIBODY Routine 06/25/2021 9:40 AM EDT Exposure to sexually transmitted disease (STD) HIV-1/O/2 ANTIGEN/ANTIBODY Routine 06/25/2021 9:40 AM EDT Exposure to sexually transmitted disease (STD) COMPREHENSIVE METABOLIC PANEL Routine 06/25/2021 9:40 AM EDT Other hyperlipidemia LIPID PANEL Routine 06/25/2021 9:40 AM EDT Other hyperlipidemia SCANNED - LABS 03/27/2021 CBC AND DIFFERENTIAL Routine 12/11/2020 10:06 AM EST Other hyperlipidemia CBC WITH AUTO DIFFERENTIAL Routine 12/11/2020 10:06 AM EST Other hyperlipidemia COMPREHENSIVE METABOLIC PANEL Routine 12/11/2020 10:06 AM EST Other hyperlipidemia LIPID PANEL Routine 12/11/2020 10:06 AM EST Other hyperlipidemia TSH Routine 12/11/2020 10:06 AM EST Other hyperlipidemia HEPATITIS C ANTIBODY Routine 12/11/2020 10:06 AM EST Exposure to sexually transmitted disease (STD) HIV-1/O/2 ANTIGEN/ANTIBODY Routine 12/11/2020 10:06 AM EST Exposure to sexually transmitted disease (STD) RPR TITER Routine 07/08/2020 9:14 AM EDT High risk heterosexual behavior TREPONEMA PALLIDUM, CONFIRMATION Routine 07/08/2020 9:14 AM EDT High risk heterosexual behavior RPR Routine 07/08/2020 9:14 AM EDT High risk heterosexual behavior HIV-1/O/2 ANTIGEN/ANTIBODY Routine 07/08/2020 9:14 AM EDT High risk heterosexual behavior HEPATITIS C ANTIBODY Routine 07/08/2020 9:14 AM EDT High risk heterosexual behavior NUSWAB VG+ Routine 07/08/2020 9:14 AM EDT Acute vaginitis High risk heterosexual behavior VIRUS CULTURE Routine 07/08/2020 9:13 AM EDT High risk heterosexual behavior Genital lesion, female CT CHEST W WO CONTRAST DIAGNOSTIC Routine 06/05/2020 10:09 AM EDT Localized swelling, mass and lump, trunk POCT CREATININE Routine 06/05/2020 9:57 AM EDT US BREAST RIGHT LIMITED Routine 05/10/2020 11:05 AM EDT Abnormal mammogram MAMMO DIAGNOSTIC DIGITAL TOMOSYNTHESIS BILATERAL W CAD Routine 05/10/2020 10:31 AM EDT Abnormal mammogram CBC AND DIFFERENTIAL Routine 04/17/2020 10:58 AM EDT Other hyperlipidemia CBC WITH AUTO DIFFERENTIAL Routine 04/17/2020 10:58 AM EDT Other hyperlipidemia COMPREHENSIVE METABOLIC PANEL Routine 04/17/2020 10:58 AM EDT Other hyperlipidemia LIPID PANEL Routine 04/17/2020 10:58 AM EDT Other hyperlipidemia XR SPINE THORACIC 3 VW Routine 07/26/2019 10:25 AM EDT Acute midline thoracic back pain CBC AND DIFFERENTIAL Routine 07/26/2019 9:55 AM EDT Other hyperlipidemia CBC WITH AUTO DIFFERENTIAL Routine 07/26/2019 9:55 AM EDT Other hyperlipidemia COMPREHENSIVE METABOLIC PANEL Routine 07/26/2019 9:55 AM EDT Other hyperlipidemia LIPID PANEL Routine 07/26/2019 9:55 AM EDT Other hyperlipidemia FOLATE Routine 07/26/2019 9:55 AM EDT Memory difficulties VITAMIN B12 Routine 07/26/2019 9:55 AM EDT Memory difficulties VITAMIN D,25-HYDROXY Routine 07/26/2019 9:55 AM EDT Memory difficulties TSH Routine 07/26/2019 9:55 AM EDT Other hyperlipidemia Memory difficulties T4, FREE Routine 07/26/2019 9:55 AM EDT Other hyperlipidemia Memory difficulties MAMMO DIAGNOSTIC DIGITAL TOMOSYNTHESIS BILATERAL W CAD Routine 01/04/2019 10:45 AM EST Mass of upper inner quadrant of left breast CBC AND DIFFERENTIAL Routine 11/21/2018 10:43 AM EST Other hyperlipidemia CBC WITH AUTO DIFFERENTIAL Routine 11/21/2018 10:43 AM EST Other hyperlipidemia TSH Routine 11/21/2018 10:43 AM EST Other hyperlipidemia COMPREHENSIVE METABOLIC PANEL Routine 11/21/2018 10:43 AM EST Other hyperlipidemia LIPID PANEL Routine 11/21/2018 10:43 AM EST Other hyperlipidemia SCANNED - INFLUENZA 11/21/2018 URINE DRUG SCREEN Routine 11/21/2018 High risk medication use XR SPINE LUMBAR 2 OR 3 VW Routine 08/10/2018 12:28 PM EDT Acute left-sided low back pain with left-sided sciatica TISSUE PATHOLOGY EXAM Routine 07/01/2018 12:45 PM EDT Mass of upper inner quadrant of left breast MAMMO BREAST SPECIMEN Routine 07/01/2018 12:40 PM EDT Mass of upper inner quadrant of left breast MAMMO BREAST PLACEMENT DEVICE INITIAL WO BIOPSY Routine 07/01/2018 9:57 AM EDT Mass of upper inner quadrant of left breast LIPID PANEL Routine 05/19/2018 9:05 AM EDT Other hyperlipidemia AST Routine 05/19/2018 9:05 AM EDT High risk medication use ALT Routine 05/19/2018 9:05 AM EDT High risk medication use SE QUAD ONLY W/ CONTRAST AND EXERCISE Routine 04/26/2018 2:43 PM EDT Other chest pain MAMMO POST DEVICE PLACEMENT BILATERAL Routine 04/21/2018 2:42 PM EDT Breast mass US GUIDED BREAST BIOPSY W WO DEVICE EACH ADDITIONAL Routine 04/21/2018 2:42 PM EDT Breast mass TISSUE PATHOLOGY EXAM Routine 04/21/2018 2:20 PM EDT US GUIDED BREAST BIOPSY W WO DEVICE INITIAL Routine 04/21/2018 2:13 PM EDT Breast mass TISSUE PATHOLOGY EXAM Routine 04/21/2018 1:30 PM EDT US BREAST BILATERAL LIMITED Routine 04/21/2018 12:28 PM EDT Breast mass MAMMO DIAGNOSTIC DIGITAL TOMOSYNTHESIS BILATERAL W CAD Routine 04/21/2018 10:42 AM EDT Breast mass DEXA BONE DENSITY AXIAL Routine 04/21/2018 9:11 AM EDT Menopause MAMMO OUTSIDE FILMS Routine 04/21/2018 8 :54 AM EDT Breast mass CBC AND DIFFERENTIAL Routine 04/06/2018 1:14 PM EDT Encounter for health maintenance examination in adult Screening for cardiovascular condition CBC WITH AUTO DIFFERENTIAL Routine 04/06/2018 1:14 PM EDT Encounter for health maintenance examination in adult Screening for cardiovascular condition TSH Routine 04/06/2018 1:09 PM EDT Encounter for health maintenance examination in adult Screening for cardiovascular condition COMPREHENSIVE METABOLIC PANEL Routine 04/06/2018 1:09 PM EDT Encounter for health maintenance examination in adult Screening for cardiovascular condition LIPID PANEL Routine 04/06/2018 1:09 PM EDT Encounter for health maintenance examination in adult Screening for cardiovascular condition ECG 12-LEAD Routine 04/06/2018 11:15 AM EDT Other chest pain XR SPINE LUMBAR COMPLETE 4+VW Routine 10/19/2016 10:49 AM EST Acute midline low back pain with bilateral sciatica POCT LIPID PANEL Routine 10/19/2016 10:29 AM EST Screening for cardiovascular condition CBC AND DIFFERENTIAL Routine 10/19/2016 10:25 AM EST Screening for cardiovascular condition CBC WITH AUTO DIFFERENTIAL Routine 10/19/2016 10:25 AM EST Screening for cardiovascular condition HEPATITIS C ANTIBODY Routine 10/19/2016 10:20 AM EST Screening for cardiovascular condition TSH Routine 10/19/2016 10:20 AM EST Screening for cardiovascular condition VITAMIN D,25-HYDROXY Routine 10/19/2016 10:20 AM EST Screening for cardiovascular condition COMPREHENSIVE METABOLIC PANEL Routine 10/19/2016 10:20 AM EST Screening for cardiovascular condition Results * EMG 37031 (X1) & NCS 3-4 (30294) (06/22/2025 11:15 AM EDT) Impressions NEUROLOGY - 06/22/2025 11:40 AM EDT Median neuropathy at the wrist on the right, mild (carpal tunnel) 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 Narrative NEUROLOGY - 06/22/2025 11:40 AM EDT Table formatting from the original result was not included. Images from the original result were not included. Indication: Right hand pain, paresthesias, peripheral nerve entrapment Clinical: 70 y.o.female with a history of pain near the base of the thumb and up the lateral aspect of the forearm. She has some weakness of handgrip and some paresthesias in the hand. On examination her reflexes are 2+ at the right biceps, triceps and brachioradialis. Muscle bulk and strength appear intact. Sensation to pinprick is intact in the right hand. Peripheral nerve entrapment such as carpal tunnel syndrome is a clinical consideration. NCS/EMG TECHNICAL DATA: All studies are performed at a skin temperature of 34 C or greater. Distal sensory latencies are calculated to waveform peak. Sensory amplitudes are measured peak to peak Distal motor latencies are calculated to waveform onset. Motor amplitudes are calculated baseline to peak Nerve Conduction Studies Anti Sensory Summary Table Stim Site NR Peak (ms) Norm Peak (ms) P-T Amp ( V) Norm P-T Amp Site1 Site2 Delta-P (ms) Dist (cm) Jayme (m/s) Norm Jayme (m/s) Right Ulnar Anti Sensory (5th Digit) Wrist 3.1 <3.7 22.8 >15.0 Wrist 5th Digit 3.1 0.0 B Elbow 6.7 21.7 B Elbow Wrist 3.6 25.0 69 >53 A Elbow 9.0 21.1 A Elbow B Elbow 2.3 10.0 43 >53 Ortho Sensory Summary Table Stim Site NR Peak (ms) Norm Peak (ms) P-T Amp ( V) Norm P-T Amp Site1 Site2 Delta-P (ms) Dist (cm) Jayme (m/s) Norm Jayme (m/s) Right Median Ortho Sensory (Wrist) 2nd Digit 2.3 22.3 2nd Digit Wrist 2.3 8.0 35 Right Ulnar Ortho Sensory (Wrist) 5th Digit 1.2 7.9 5th Digit Wrist 1.2 8.0 67 Motor Summary Table Stim Site NR Onset (ms) Norm Onset (ms) O-P Amp (mV) Norm O-P Amp Site1 Site2 Delta-0 (ms) Dist (cm) Jayme (m/s) Norm Jayme (m/s) Right Median Motor (Abd Poll Brev) Wrist 4.1 <4.2 6.2 >5 Elbow Wrist 4.1 25.0 61 >50 Elbow 8.2 5.3 Right Ulnar Motor (Abd Dig Minimi) Wrist 3.0 <4.2 5.3 >3 B Elbow Wrist 4.2 25.0 60 >53 B Elbow 7.2 2.0 A Elbow B Elbow 2.1 10.0 48 >53 A Elbow 9.3 1.2 F Wave Studies NR F-Lat (ms) Lat Norm (ms) L-R F-Lat (ms) L-R Lat Norm M-Lat (ms) FLat-MLat (ms) Right Median (Mrkrs) (Abd Poll Brev) 28.19 <33 <2.2 4.17 24.02 Right Ulnar (Mrkrs) (Abd Dig Min) 29.44 <36 <2.5 3.50 25.94 EMG Side Muscle Nerve Root Ins Act Fibs Psw Amp Dur Poly Recrt Int Pat Comment Right Abd Poll Brev Median C8-T1 Nml Nml Nml Nml Nml 0 Nml Nml Right 1stDorInt Ulnar C8-T1 Nml Nml Nml Nml Nml 0 Nml Nml Right Ext Digitorum Radial (Post Int) C7-8 Nml Nml Nml Nml Nml 0 Nml Nml Right Biceps Musculocut C5-6 Nml Nml Nml Nml Nml 0 Nml Nml Right Triceps Radial C6-7-8 Nml Nml Nml Nml Nml 0 Nml Nml Right Deltoid Axillary C5-6 Nml Nml Nml Nml Nml 0 Nml Nml Right C5 Parasp Rami C5 Nml Nml Nml Nml Nml 0 Nml Nml Right C6 Parasp Rami C6 Nml Nml Nml Nml Nml 0 Nml Nml Right C7 Parasp Rami C7 Nml Nml Nml Nml Nml 0 Nml Nml Waveforms: FINDINGS: Nerve Conduction Studies: Sensory latency on the right is mildly prolonged at 2.3 ms Comparison ulnar sensory latency on the right is normal for latency difference of 1.1 ms Median motor latency on the right is toward the upper limits of normal at 4.1 ms Right median and right ulnar motor F wave latencies are normal Velocity of the right median motor nerve is slowed across the elbow at 48 m/s. Velocity of the right ulnar antidromic sensory nerve is slowed across the elbow at 43 m/s Electromyogram: Needle examination of multiple muscles in the right arm and cervical paraspinous muscles are normal us Faina Benson MD NEUROLOGY ORDERABLES Final Resu lt NEUROLOGY * (ABNORMAL) POC Urinalysis Dipstick, Automated (06/04/2025 10:40 AM EDT) Only the most recent of5 resultswithin the time period is included. Color Yellow Yellow, Straw, Dark Yellow, Arcelia [facility] Clarity, UA Clear Clear [facility] Specific [place] 1.020 1.005 - 1.030 [facility] pH, Urine 5.0 5.0 - 8.0 [facility] Leukocytes 25 Rebecca/ul(A) Negative [facility] Nitrite, UA Negative Negative [facility] Protein, POC Negative Negative mg/dL [facility] Glucose, UA Negative Negative mg/dL [facility] Ketones, UA Negative Negative [facility] Urobilinogen, UA Normal Normal, 0.2 E.U./dL [facility] Bilirubin Negative Negative [facility] Blood, UA Negative Negative [facility] Lot Number [id number] [facility] Expiration Date 02/12/26 [facility] Urine 06/04/2025 10:4 0 AM EDT us Faina Benson MD POINT OF CARE TEST ORDERABLES F inal Result Performing Organization Address [facility] Co de Phone Number [facility]
[address] [place] [address], * Urine Culture - Urine, Urine, Clean Catch (06/04/2025 10:34 AM EDT) Only the most recent of3 resultswithin the time period is included. Urine Culture 25,000 CFU/mL Normal Urogenital Jojo CLIVE 06/06/2025 10:58 AM EDT [facility] Urine Urine specimen obtained by clean catch procedure / Unknown Collection / Unknown 06/04/2025 10:34 AM EDT 06/04/2025 10:34 AM EDT Narrative [facility] - 06/06/2025 10:58 AM EDT Colonization of the urinary tract without infection is common. Treatment is discouraged unless the patient is symptomatic, , or undergoing an invasive urologic procedure. us Faina Benson MD MICROBIOLOGY - GENERAL ORDERABL ES Final Result Performing Organization Address [facility] Co de Phone Number [facility]
[address] [place] [address], [place] [phone] * XR Hand 3+ View Right (06/04/2025 10:10 AM EDT) Anatomical Region Laterality Modality Upper Extremities, Hand Right Radiogra phic Imaging 06/06/2025 2:00 PM EDT Impressions 06/06/2025 2:07 PM EDT Impression: No acute osseous findings. Mild degenerative change of the thumb CMC joint. Electronically Signed: Ehsan Minor MD 06/06/2025 2:07 PM EDT Workstation ID: [id number] Narrative 06/06/2025 2:07 PM EDT XR HAND 3+ VW RIGHT Date of Exam: 06/04/2025 10:04 AM EDT Indication: Pain at the base of the right thumb, numbness and tingling Comparison: None Findings: The bones are demineralized. No definite soft tissue swelling. No acute fracture or traumatic malalignment. No bony erosion or periostitis. There are scattered mild interphalangeal osteoarthritic changes. There are mild degenerative changes at the thumb CMC joint. Procedure Note Ehsan Minor MD - 06/06/2025 XR HAND 3+ VW RIGHT Date of Exam: 06/04/2025 10:04 AM EDT Indication: Pain at the base of the right thumb, numbness and tingling Comparison: None Findings: The bones are demineralized. No definite soft tissue swelling. No acutefracture or traumatic malalignment. No bony erosion or periostitis. Thereare scattered mild interphalangeal osteoarthritic changes. There are milddegenerative changes at the thumb CMC joint. IMPRESSION: Impression: No acute osseous findings. Mild degenerative change of the thumb CMCjoint. Electronically Signed: Ehsan Minor MD 06/06/2025 2:07 PM EDT Workstation ID: [id number] us Faina Benson MD IMG DIAGNOSTIC IMAGING ORDERABL ES Final Result * CBC Auto Differential (06/04/2025 9:05 AM EDT) Only the most recent of11 resultswithin the time period is included. WBC 5.60 3.40 - 10.80 10*3/mm3 06/04/2025 7:28 PM EDT [facility] RBC 4.25 3.77 - 5.28 10*6/mm3 06/04/2025 7:28 PM EDT [facility] Hemoglobin 13.2 12.0 - 15.9 g/dL 06/04/2025 7:28 PM EDT [facility] Hematocrit 39.0 34.0 - 46.6 % 06/04/2025 7:28 PM EDT [facility] MCV 91.8 79.0 - 97.0 fL 06/04/2025 7:28 PM EDT [facility] MCH 31.1 26.6 - 33.0 pg 06/04/2025 7:28 PM EDT [facility] MCHC 33.8 31.5 - 35.7 g/dL 06/04/2025 7:28 PM EDT [facility] RDW 12.4 12.3 - 15.4 % 06/04/2025 7:28 PM EDT [facility] RDW-SD 41.4 37.0 - 54.0 fl 06/04/2025 7:28 PM EDT [facility] MPV 10.1 6.0 - 12.0 fL 06/04/2025 7:28 PM EDT [facility] Platelets 255 140 - 450 10*3/mm3 06/04/2025 7:28 PM EDT [facility] Neutrophil % 46.9 42.7 - 76.0 % 06/04/2025 7:28 PM EDT [facility] Lymphocyte % 38.8 19.6 - 45.3 % 06/04/2025 7:28 PM EDT [facility] Monocyte % 9.3 5.0 - 12.0 % 06/04/2025 7:28 PM EDT [facility] Eosinophil % 3.8 0.3 - 6.2 % 06/04/2025 7:28 PM EDT [facility] Basophil % 0.7 0.0 - 1.5 % 06/04/2025 7:28 PM EDT [facility] Immature Grans % 0.5 0.0 - 0.5 % 06/04/2025 7:28 PM EDT [facility] Neutrophils, Absolute 2.63 1.70 - 7.00 10*3/mm3 06/04/2025 7:28 PM EDT [facility] Lymphocytes, Absolute 2.17 0.70 - 3.10 10*3/mm3 06/04/2025 7:28 PM EDT [facility] Monocytes, Absolute 0.52 0.10 - 0.90 10*3/mm3 06/04/2025 7:28 PM EDT [facility] Eosinophils, Absolute 0.21 0.00 - 0.40 10*3/mm3 06/04/2025 7:28 PM EDT [facility] Basophils, Absolute 0.04 0.00 - 0.20 10*3/mm3 06/04/2025 7:28 PM EDT [facility] Immature Grans, Absolute 0.03 0.00 - 0.05 10*3/mm3 06/04/2025 7:28 PM EDT [facility] nRBC 0.0 0.0 - 0.2 /100 WBC 06/04/2025 7:28 PM EDT [facility] Blood Venipuncture / Unknown 06/04/2025 9:05 AM EDT 06/04/2025 9:06 AM EDT us Faina Benson MD LAB BLOOD ORDERABLES Final Resu lt [facility]
[address] [place] [address], * Rheumatoid Factor (06/04/2025 9:05 AM EDT) Rheumatoid Factor Quantitative <10.0 0.0 - 14.0 IU/mL 06/04/2025 6:54 PM EDT [facility] Blood Structure of left upper limb / Unknown Venipuncture / Unknown 06/04/2025 9:05 AM EDT 06/04/2025 9:06 AM EDT us Faina Benson MD LAB BLOOD ORDERABLES Final Resu lt Performing Organization Address [facility] Co de Phone Number [facility]
[address] [place] [address], * TSH (06/04/2025 9:05 AM EDT) Only the most recent of10 resultswithin the time period is included. Pathologist [facility] [place] TSH 2.740 0.270 - 4.200 uIU/mL 06/04/2025 6:59 PM EDT [facility] Blood Structure of left upper limb / Unknown Venipuncture / Unknown 06/04/2025 9:05 AM EDT 06/04/2025 9:06 AM EDT us Faina Benson MD LAB BLOOD ORDERABLES Final Resu lt Performing Organization Address [facility] de Phone Number [facility]
[address] [place] [address], * (ABNORMAL) Lipid Panel (06/04/2025 9:05 AM EDT) Only the most recent of13 resultswithin the time period is included. Total Cholesterol 209(H) 0 - 200 mg/dL 06/04/2025 6:54 PM EDT [facility] Triglycerides 123 0 - 150 mg/dL 06/04/2025 6:54 PM EDT [facility] HDL Cholesterol 59 40 - 60 mg/dL 06/04/2025 6:54 PM EDT [facility] LDL Cholesterol 128(H) 0 - 100 mg/dL 06/04/2025 6:54 PM EDT [facility] VLDL Cholesterol 22 5 - 40 mg/dL 06/04/2025 6:54 PM EDT [facility] LDL/HDL Ratio 2.13 06/04/2025 6:54 PM EDT [facility] Blood Structure of left upper limb / Unknown Venipuncture / Unknown 06/04/2025 9:05 AM EDT 06/04/2025 9:06 AM EDT Narrative [facility] - 06/04/2025 6:54 PM EDT Cholesterol Reference Ranges (U.S. Department of Health and Human Services ATP III Classifications) Desirable <200 mg/dL Borderline High 200-239 mg/dL High Risk >240 mg/dL Triglyceride Reference Ranges (U.S. Department of Health and Human Services ATP III Classifications) Normal <150 mg/dL Borderline High 150-199 mg/dL High 200-499 mg/dL Very High >500 mg/dL HDL Reference Ranges (U.S. Department of Health and Human Services ATP III Classifications) Low <40 mg/dl (major risk factor for CHD) High >60 mg/dl ('negative' risk factor for CHD) LDL Reference Ranges (U.S. Department of Health and Human Services ATP III Classifications) Optimal <100 mg/dL Near Optimal 100-129 mg/dL Borderline High 130-159 mg/dL High 160-189 mg/dL Very High >189 mg/dL LDL is calculated using the NIH LDL-C calculation. Faina Benson MD LAB BLOOD ORDERABLES Final Resu lt [facility]
[address] [place] [address], * Comprehensive Metabolic Panel (06/04/2025 9:05 AM EDT) Only the most recent of13 resultswithin the time period is included. Glucose 89 65 - 99 mg/dL 06/04/2025 6:54 PM EDT [facility] BUN 14.0 8.0 - 23.0 mg/dL 06/04/2025 6:54 PM EDT [facility] Creatinine 0.86 0.57 - 1.00 mg/dL 06/04/2025 6:54 PM [facility] Sodium 139 136 - 145 mmol/L 06/04/2025 6:54 PM [facility] Potassium 4.5 3.5 - 5.2 mmol/L 06/04/2025 6:54 PM [facility] Chloride 107 98 - 107 mmol/L 06/04/2025 6:54 PM [facility] CO2 25.0 22.0 - 29.0 mmol/L 06/04/2025 6:54 PM [facility] Calcium 9.5 8.6 - 10.5 mg/dL 06/04/2025 6:54 PM [facility] Total Protein 7.2 6.0 - 8.5 g/dL 06/04/2025 6:54 PM [facility] Albumin 4.2 3.5 - 5.2 g/dL 06/04/2025 6:54 PM [facility] ALT (SGPT) 13 1 - 33 U/L 06/04/2025 6:54 PM [facility] AST (SGOT) 21 1 - 32 U/L 06/04/2025 6:54 PM [facility] Alkaline Phosphatase 86 39 - 117 U/L 06/04/2025 6:54 PM [facility] Total Bilirubin 0.4 0.0 - 1.2 mg/dL 06/04/2025 6:54 PM [facility] Globulin 3.0 gm/dL 06/04/2025 6:54 PM [facility] A/G Ratio 1.4 g/dL 06/04/2025 6:54 PM [facility] BUN/Creatinine Ratio 16.3 7.0 - 25.0 06/04/2025 6:54 PM [facility] Anion Gap 7.0 5.0 - 15.0 mmol/L 06/04/2025 6:54 PM [facility] eGFR 72.3 >60.0 mL/min/1.7 3 06/04/2025 6:54 PM EDT [facility] Blood Structure of left upper limb / Unknown Venipuncture / Unknown 06/04/2025 9:05 AM EDT 06/04/2025 9:06 AM EDT Narrative [facility] - 06/04/2025 6:54 PM EDT GFR Categories in Chronic Kidney Disease (CKD) GFR Category GFR (mL/min/1.73) Interpretation G1 90 or greater Normal or high (1) G2 60-89 Mild decrease (1) G3a 45-59 Mild to moderate decrease G3b 30-44 Moderate to severe decrease G4 15-29 Severe decrease G5 14 or less Kidney failure (1)In the absence of evidence of kidney disease, neither GFR category G1 or G2 fulfill the criteria for CKD. eGFR calculation 2020 CKD-EPI creatinine equation, which does not include race as a factor Faina Benson MD LAB BLOOD ORDERABLES Final Resu lt [facility]
[address] [place] [address], * Mammo Screening Digital Tomosynthesis Bilateral With CAD (03/26/2025 8:59 AM EDT) Only the most recent of2 resultswithin the time period is included. Anatomical Region Laterality Modality Breast N/A Mammography 03/27/2025 2:36 PM EDT Impressions 03/27/2025 2:38 PM EDT No findings suspicious for malignancy. ACR BI-RADS CATEGORY: 1, NEGATIVE RECOMMENDATION: Yearly mammogram, yearly clinical breast exam, and encourage self breast awareness. The standard false negative rate of mammography is between 10% and 25%. Complex patterns or increased breast density will markedly elevate the false negative rate of mammography. A letter, in lay terminology, with the results of this exam will be mailed to the patient. If there is a palpable area of concern, biopsy should be considered regardless of imaging findings. 03/27/2025 2:38 PM by Aixa Lee MD on Narrative 03/27/2025 2:38 PM EDT ROUTINE DIGITAL SCREENING MAMMOGRAM WITH TOMOSYNTHESIS HISTORY: Routine screening. IMAGE COMPARISON: Extending to 1999. TECHNIQUE: Low dose full field digital breast tomosynthesis imaging was performed with 2D and 3D acquisitions consisting of bilateral CC and MLO views. FINDINGS: There are scattered fibroglandular densities. The fibroglandular pattern appears stable. There is no mass, worrisome microcalcifications, or architectural distortion to suggest development of malignancy. Faina Benson MD IMG MAMMOGRAPHY ORDERABLES Betty l Result * DEXA Bone Density Axial (03/26/2025 8:38 AM EDT) Only the most recent of2 resultswithin the time period is included. Anatomical Region Laterality Modality Wrist, Hip, L-spine N/A Bone Density 03/26/2025 8:51 AM EDT Impressions 03/26/2025 3:27 PM EDT Osteoporosis of the right femoral neck. Osteopenia of the L1-L4 vertebrae, left femoral neck, and total hips bilaterally. The ten year fracture risk assessment was not calculated because all T-scores were at or below -2.5. All the treatment decisions require clinical judgment and consideration of individual patient factors, including patient preferences, co-morbidities, previous drug use, risk factors not captured in the FRAX model (frailty, falls, vitamin D deficiency, increased bone turnover, interval significant decline in bone density) and possible under or over estimation of fracture risk by FRAX. Approaches to reduce osteoporosis related fracture risk include optimizing calcium and vitamin D status, appropriate weight bearing exercises and fall-prevention measurements. The National Osteoporosis Foundation recommends (http://www.nof.org/hcp/practice/deewkcyz-erd-bbwyilak-guidelines/clinicians-christin de) that FDA-approved medical therapies be considered in postmenopausal women and men aged equal or greater than 50 years with : a) hip or vertebral (clinical or morphometric) fracture; b) T-score of -2.5 or less at the spine or hip; c) Ten-year fracture probability by FRAX of greater than 3% for hip fracture of greater than 20% for major osteoporotic fracture. Secondary causes of bone loss should be evaluated if clinically indicated since the etiology of low BMD cannot be determined by BMD measurement alone. FOLLOWUP: Consider repeating the study in 2-3 years to reassess the patient's status or sooner if there is some new clinical indication. INTERVAL CHANGE: There were no equivalent studies available for comparison. Due to cross calibration requirements from different scanners, previous studies may not be available for statistical comparison at this time.. At this facility, the least significant change in the BMD at the left hip with 95% confidence is 0.701844 gm/cm2 at the hip and 0.678099 g/cm2 at the lumbar spine. Report dictated by: Charito Stout PA-c I have personally reviewed this case and agree with the findings above: Electronically Signed: Rey Jorge MD 03/26/2025 3:27 PM EDT Workstation ID: [id number] Narrative 03/26/2025 3:27 PM EDT DUAL-ENERGY X-RAY ABSORPTIOMETRY (DXA) INDICATION: Postmenopausal, screening for osteoporosis, prior fracture, hysterectomy, new baseline COMPARISON: There are no equivalent studies available for comparison PROCEDURE: A DXA scan was performed using a Hologic densitometer. The lumbar spine L1-L4 was evaluated as well as bilateral total hip. The T-score compares the patient's bone mineral density with the peak bone mass of young normal patients. According to criteria established by the World Health Organization, patients with T-scores between 1.0 and 2.5 standard deviations BELOW the mean are osteopenic (low bone mass). Patients with T-scores EQUAL TO OR GREATER than 2.5 standard deviations below the mean are osteoporotic. The Z-score compares the patient bone mineral density with age and sex matched peers. According to the International Society for Clinical Densitometry's 2007 consensus conference: In women prior to menopause and men less than age 50, Z-scores, not T-scores are preferred. A Z-score of -2.0 or lower is defined as below the expected range for age and a Z-score above -2.0 is within the expected range for age. The WHO diagnostic criteria may be applied in women in the menopausal transition. Osteoporosis cannot be diagnosed in men under age 50 on the basis of BMD alone. TECHNICAL QUALITY: The study is of good technical quality. RESULTS: Lumbar Spine: The BMD measured in the L1-L4 region is 0.925 g/cm2. The average T-score is -1.1. The Z-score is 1.1. Total Hip: The BMD measured at the left total proximal femur is 0.710 g/cm2. The T-score is -1.9. The Z-score is -0.3. Femoral Neck: The BMD measured at the left femoral neck is 0.579 g/cm2. The T-score is -2.4. The Z-score is -0.6. Total Hip: The BMD measured at the right total proximal femur is 0.753 g/cm2. The T-score is -1.6. The Z-score is 0.0. Femoral neck: The BMD measured at the right femoral neck is 0.561 g/cm2. The T score is -2.6. The Z score is -0.7. Procedure Note Rey Jorge MD - 03/26/2025 DUAL-ENERGY X-RAY ABSORPTIOMETRY (DXA) INDICATION: Postmenopausal, screening for osteoporosis, prior fracture,hysterectomy, new baseline COMPARISON: There are no equivalent studies available for comparison PROCEDURE: A DXA scan was performed using a Hologic densitometer. The lumbar spine L1-L4 was evaluated as well as bilateral total hip. The T-score compares the patient's bone mineral density with the peak bonemass of young normal patients. According to criteria established by the[facility], patients with T-scores between 1.0 and 2.5standard deviations BELOW the mean are osteopenic (low bone mass). Patients with T-scores EQUAL TO ORGREATER than 2.5 standard deviations below the mean are osteoporotic. The Z-score compares the patient bone mineral density with age and sexmatched peers. According to the International Society for ClinicalDensitometry's 2007 consensus conference: In women prior to menopause andmen less than age 50, Z-scores, not T-scores are preferred. A Z-score of -2.0 or lower is defined as belowthe expected range for age and a Z-score above -2.0 is within theexpected range for age. The WHO diagnostic criteria may be applied inwomen in the menopausal transition. Osteoporosis cannot be diagnosed in men under age 50 on the basis of BMDalone. TECHNICAL QUALITY: The study is of good technical quality. RESULTS: Lumbar Spine: The BMD measured in the L1-L4 region is 0.925 g/cm2. Theaverage T- score is -1.1. The Z-score is 1.1. Total Hip: The BMD measured at the left total proximal femur is 0.710g/cm2. The T-score is -1.9. The Z-score is -0.3. Femoral Neck: The BMD measured at the left femoral neck is 0.579 g/cm2.The T- score is -2.4. The Z-score is -0.6. Total Hip: The BMD measured at the right total proximal femur is 0.753g/cm2. The T-score is -1.6. The Z-score is 0.0. Femoral neck: The BMD measured at the right femoral neck is 0.561 g/cm2.The T score is -2.6. The Z score is -0.7. IMPRESSION: Osteoporosis of the right femoral neck. Osteopenia of the L1-L4 vertebrae,left femoral neck, and total hips bilaterally. The ten year fracture risk assessment was not calculated because allT-scores were at or below -2.5. All the treatment decisions require clinical judgment and consideration ofindividual patient factors, including patient preferences, co-morbidities,previous drug use, risk factors not captured in the FRAX model (frailty,falls, vitamin D deficiency, increased bone turnover, interval significant decline in bone density) andpossible under or over estimation of fracture risk by FRAX. Approaches toreduce osteoporosis related fracture risk include optimizing calcium andvitamin D status, appropriate weight bearing exercises and fall-prevention measurements. The NationalOsteoporosis Foundation recommends(http://www.nof.org/hcp/practice/lzhppwrf-etk-ekgiobwz-guidelines/clin ician s-guide) that FDA-approved medical therapies be considered in postmenopausal women and men aged equal or greater than 50 years with :a) hip or vertebral (clinical or morphometric) fracture; b) T-score of-2.5 or less at the spine or hip; c) Ten-year fracture probability by FRAXof greater than 3% for hip fracture of greater than 20% for major osteoporotic fracture. Secondary causes of bone loss should be evaluated if clinically indicatedsince the etiology of low BMD cannot be determined by BMD measurementalone. FOLLOWUP: Consider repeating the study in 2-3 years to reassess thepatient's status or sooner if there is some new clinical indication. INTERVAL CHANGE: There were no equivalent studies available forcomparison. Due to cross calibration requirements from different scanners,previous studies may not be available for statistical comparison at thistime.. At this facility, the least significant change in the BMD at the left hipwith 95% confidence is 0.945624 gm/cm2 at the hip and 0.980471 g/cm2 atthe lumbar spine. Report dictated by: Charito Stout PA-c I have personally reviewed this case and agree with the findings above: Electronically Signed: Rey Jorge MD 03/26/2025 3:27 PM EDT Workstation ID: [id number] Faina Benson MD [facility] [place] ORDERABLES Final Result * XR Knee 3+ View With Savanna Left (12/26/2024 8:47 AM EST) Only the most recent of3 resultswithin the time period is included. Anatomical Region Laterality Modality Lower Extremities, Knee Left Xray Narrative 12/26/2024 8:59 AM EST Indication: Status post left total knee arthroplasty Comparison: Todays xrays were compared to previous xrays from 10/24/2024 Right knee 4 views: Moderate medial compartment arthritis with varus alignment. Severe patellofemoral arthritis with jvwr-qq-[id number] articulation lateral facet and trochlea Left knee 3 views: Demonstrate well positioned knee arthroplasty components in satisfactory alignment without evidence of wear, loosening, subsidence, fracture, or osteolysis and No significant changes compared to prior radiographs. Adán Contreras MD [facility] [place]NOSTIC IMAGING ORDE RABKYRA Final Result * XR Knee 4+ View Right (12/26/2024 8:46 AM EST) Anatomical Region Laterality Modality Lower Extremities, Knee Right Xray Narrative 12/26/2024 8:59 AM EST Indication: Status post left total knee arthroplasty Comparison: Todays xrays were compared to previous xrays from 10/24/2024 Right knee 4 views: Moderate medial compartment arthritis with varus alignment. Severe patellofemoral arthritis with usbn-zn-[id number] articulation lateral facet and trochlea Left knee 3 views: Demonstrate well positioned knee arthroplasty components in satisfactory alignment without evidence of wear, loosening, subsidence, fracture, or osteolysis and No significant changes compared to prior radiographs. Adán Contreras MD [facility]AGNOSTIC [facility]AGING ORD JUAN Final Result * XR Knee 1 or 2 View Left (09/13/2024 10:07 AM EDT) Only the most recent of2 resultswithin the time period is included. Anatomical Region Laterality Modality Lower Extremities, Knee Left Radiogra phic Imaging 09/13/2024 10:2 9 AM EDT Impressions 09/13/2024 10:30 AM EDT Status post left tricompartmental TKA. Electronically Signed: Arcenio Pascual MD 09/13/2024 10:30 AM EDT Workstation ID: [id number] Narrative 09/13/2024 10:30 AM EDT X-ray left knee 2 views COMPARISON: None HISTORY: TKA FINDINGS: Immediately status post left tricompartmental TKA. The orthopedic hardware in near anatomic alignment. Soft tissue air and swelling consistent with the history. Procedure Note Arcenio Pascual MD - 09/13/2024 X-ray left knee 2 views COMPARISON: None HISTORY: TKA FINDINGS: Immediately status post left tricompartmental TKA. Theorthopedic hardware in near anatomic alignment. Soft tissue air andswelling consistent with the history. IMPRESSION: Status post left tricompartmental TKA. Electronically Signed: Arcenio Pascual MD 09/13/2024 10:30 AM EDT Workstation ID: [id number] Adán Contreras MD [facility]AGING ORDAnn-Marie MARTINEZ Final Result * BH AN PERIPHERAL BLOCK CATHETER (09/13/2024 9:45 AM EDT) Narrative Janak Acevedo CRNA - 09/13/2024 9:45 AM EDT Janak Acevedo CRNA 09/13/2024 9:52 AM Peripheral Block Patient reassessed immediately prior to procedure Start time: 09/13/2024 9:35 AM Stop time: 09/13/2024 9:45 AM Reason for block: at surgeon's request and post-op pain management Performed by HOME STEREO EQUIPMENT INSTALLER/CAA: Janak Acevedo, JOSE ROBERTO Preanesthetic Checklist Completed: patient identified, IV checked, site marked, risks and benefits discussed, surgical consent, monitors and equipment checked, pre-op evaluation and timeout performed Prep: Pt Position: supine Sterile barriers:cap, gloves, mask, sterile barriers and washed/disinfected hands Prep: ChloraPrep Patient monitoring: blood pressure monitoring, continuous pulse oximetry and EKG Procedure Performed under: spinal Guidance:ultrasound guided ULTRASOUND INTERPRETATION. Using ultrasound guidance a 20 G gauge needle was placed in close proximity to the nerve, at which point, under ultrasound guidance anesthetic was injected in the area of the nerve and spread of the anesthesia was seen on ultrasound in close proximity thereto. There were no abnormalities seen on ultrasound; a digital image was taken; and the patient tolerated the procedure with no complications. Images:still images obtained, printed/placed on chart Laterality:left Block Type:adductor canal block Injection Technique:catheter Needle Type:Tuohy and echogenic Needle Gauge:18 G Resistance on Injection: none Catheter Size:20 G (20g) Medications Used: bupivacaine PF (MARCAINE) 0.25 % injection - Injection 30 mL - 09/13/2024 9:44:00 AM Post Assessment Injection Assessment: negative aspiration for heme, incremental injection and no paresthesia on injection Patient Tolerance:comfortable throughout block Complications:no Additional Notes CATHETER A high-frequency linear transducer, with sterile cover, was placed on the anterior mid-thigh (between the anterior superior iliac spine and patella). The transducer was then moved medially to identify the Sartorius muscle (Theresa), Vastus Medialis muscle (VMM), Superficial Femoral Artery (SFA) and Vein. The transducer was then moved cephalad or caudad to position the SFA in the middle of the Theresa. The insertion site was prepped and draped in sterile fashion. Skin and cutaneous tissue was infiltrated with 2-5 ml of 1% Lidocaine. Using ultrasound-guidance, an 18-gauge Habeasiplex Ultra 360 Touhy needle was advanced in plane from lateral to medial. Preservative-free normal saline was utilized for hydro-dissection of tissue, advancement of Touhy, and to confirm needle placement below the fascial plane of the Theresa where the Nerve to the VMM is located. Local anesthetic (LA) 5 ml deposited here. The Touhy needle continues its path lateral to the SFA at the level of the Saphenous Nerve. The remainder of the LA was deposited at the 10-11 o'clock position of the SFA. This injection created a space between the Theresa and the SFA. Aspiration every 5 ml to prevent intravascular injection. Injection was completed with negative aspiration of blood and negative intravascular injection. Injection pressures were normal with minimal resistance. A 20-gauge Contiplex Echo catheter was placed through the needle and advance out the tip of the Touhy 3-5 cm anterior to the SFA. The Touhy needle was then removed, and final catheter position verified at the 12 o'clock position to the SFA. The catheter was secured in the usual fashion with skin glue, benzoin, steri-strips, CHG tegaderm and label noting Nerve Block Catheter . Jerk tape applied at yellow connector and catheter connection. Performed by: Janak Acevedo CRNA us Tisha Velez MD ANESTHESIA ORDERABLES Edite d Result - Final * HC BH AN SPINAL TRAY (09/13/2024 7:44 AM EDT) Narrative Karl Collado CRNA - 09/13/2024 7:44 AM EDT Karl Collado CRNA 09/13/2024 8:01 AM Spinal Block Patient reassessed immediately prior to procedure Patient location during procedure: OR Indication:at surgeon's request Performed By JOSE ROBERTO/CAA: Karl Collado CRNASRNA: Karina Petersen SRNA Preanesthetic Checklist Completed: patient identified, IV checked, site marked, risks and benefits discussed, surgical consent, monitors and equipment checked, pre-op evaluation and timeout performed Spinal Block Prep: Patient Position:sitting Airplane Fueler:cap, gloves, sterile barriers and mask Prep:Chloraprep Patient Monitoring:blood pressure monitoring, continuous pulse oximetry and EKG Spinal Block Procedure Approach:midline Guidance:landmark technique and palpation technique Location:L4-L5 Needle Type:Lizz Needle Gauge:22 G Placement of Spinal needle event:cerebrospinal fluid aspirated Paresthesia: no Fluid Appearance:clear Medications: bupivacaine (MARCAINE) 0.5 % injection - Injection 1.8 mL - 09/13/2024 7:45:00 AM Post Assessment Patient Tolerance:patient tolerated the procedure well with no apparent complications Complications no Additional Notes Procedure: Pt assisted to sitting position, with legs in position of comfort over side of bed. Pt. instructed in optimal spine presentation, the spine was prepped/ Draped and the skin at insertion site was anesthetized with 1% Lidocaine 2 ml. The spinal needle was then advanced until CSF flow was obtained and LA was injected: Tisha Velez MD ANESTHESIA ORDERABLES Final Result * POC Glucose Once (09/13/2024 6:54 AM EDT) Glucose 71 70 - 130 mg/dL 09/13/2024 6:57 AM EDT [facility] Blood 09/13/2024 6:54 AM EDT 09/13/2024 6:57 AM EDT Adán Contreras MD POINT OF CARE TEST ORDERABL ES Final Result [facility]
[address] [place] [address], * CT Lower Extremity Left Without Contrast (08/30/2024 3:05 PM EDT) Anatomical Region Laterality Modality Pelvis, Hip, Thigh, Knee, Lower Leg, Ankle, Foot Left Computed Tomography 09/01/2024 1:32 PM EDT Impressions 09/01/2024 1:36 PM EDT Impression: 1.Osteoarthritis of the knee with severe medial tibiofemoral joint space narrowing. Calcified intra-articular bodies are seen in the lateral suprapatellar recess. 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 Electronically Signed: Adán Ortiz 09/01/2024 1:36 PM EDT Workstation ID: [id number] Narrative 09/01/2024 1:[address] LOWER EXTREMITY LEFT WO CONTRAST Date of Exam: 08/30/2024 2:52 PM EDT Indication: Preoperative Planning. Comparison: Radiographs June 13, 2024. Technique: Axial CT images were obtained of the left hip, ankle, and knee without contrast administration per protocol. Automated exposure control and iterative construction methods were used. Findings: There is osteoarthritis of the knee with severe medial tibiofemoral joint space narrowing. There is subchondral sclerosis and cyst formation. Calcified intra-articular bodies are seen in the lateral suprapatellar recess. There is a suspected small to moderate Cohen's cyst and small knee effusion. There appears to be osteoarthritis of the hip, ankle, and midfoot, likely with mild to moderate joint space narrowing. No definite displaced fracture. Enthesopathy at the greater trochanter and ischial tuberosity. Procedure Note Adán Ortiz MD - 09/01/2024 CT LOWER EXTREMITY LEFT WO CONTRAST Date of Exam: 08/30/2024 2:52 PM EDT Indication: Preoperative Planning. Comparison: Radiographs June 13, 2024. Technique: Axial CT images were obtained of the left hip, ankle, and kneewithout contrast administration per protocol. Automated exposure controland iterative construction methods were used. Findings: There is osteoarthritis of the knee with severe medial tibiofemoral jointspace narrowing. There is subchondral sclerosis and cyst formation.Calcified intra-articular bodies are seen in the lateral suprapatellarrecess. There is a suspected small to moderate Cohen's cyst and small knee effusion. There appears to be osteoarthritis of the hip, ankle, and midfoot, likelywith mild to moderate joint space narrowing. No definite displacedfracture. Enthesopathy at the greater trochanter and ischial tuberosity. IMPRESSION: Impression: 1.Osteoarthritis of the knee with severe medial tibiofemoral joint spacenarrowing. Calcified intra-articular bodies are seen in the lateralsuprapatellar recess. 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 Electronically Signed: Adán Ortiz 09/01/2024 1:36 PM EDT Workstation ID: [id number] Adán Contreras MD IM CT ORDERABLES Final Res ult * ECG 12 Lead (08/30/2024 2:15 PM EDT) Only the most recent of2 resultswithin the time period is included. QT Interval 406 ms ECG QTC Interval 425 ms ECG 08/30/2024 2:15 PM EDT 09/02/2024 4:48 PM EDT Narrative ECG - 09/02/2024 4:48 PM EDT Test Reason : pre-op surgery Blood Pressure : */* mmHG Vent. Rate : 66 BPM Atrial Rate : 66 BPM P-R Int : 210 ms QRS Dur : 92 ms QT Int : 406 ms P-R-T Axes : 35 -7 67 degrees QTc Int : 425 ms Sinus rhythm with 1st degree AV block Otherwise normal ECG No previous ECGs available Confirmed by MD Rabago Robert ([id number]) on 09/02/2024 4:48:53 PM Referred By: Confirmed By: Fady Rabago MD Procedure Note Fady Rabago MD - 09/02/2024 Test Reason : pre-op surgery Blood Pressure : */* mmHG Vent. Rate : 66 BPM Atrial Rate : 66 BPM P-R Int : 210 ms QRS Dur : 92 ms QT Int : 406 ms P-R-T Axes : 35 -7 67 degrees QTc Int : 425 ms Sinus rhythm with 1st degree AV block Otherwise normal ECG No previous ECGs available Confirmed by MD Rabago Robert ([id number]) on 09/02/2024 4:48:53 PM Referred By: Confirmed By: Fady Rabago MD us Adán Contreras MD ECG ORDERABLES Final Resul t ECG * Nicotine & Metabolite, Quant (08/30/2024 12:53 PM EDT) Nicotine <1.0 ng/mL 09/04/2024 1:08 PM EDT [facility] Comment: This test was developed and its performance characteristics determined by [employer]. It has not been cleared or approved by the Food and Drug Administration. Nicotine levels greater than 2.0 are consistent with the use of tobacco or tobacco cessation products. Cotinine <1.0 ng/mL 09/04/2024 1:08 PM EDT [facility] Comment: This test was developed and its performance characteristics determined by [facility]. It has not been cleared or approved by the Food and Drug Administration. Cotinine levels greater than 20.0 are consistent with the use of tobacco or tobacco cessation products. Blood Venipuncture / Unknown 08/30/2024 12:53 PM EDT 08/30/2024 2:30 PM EDT [facility] - 09/04/2024 1:08 PM EDT Performed at: [address] [place] [id number] Business Editor: Manav Kim MD, Phone: [phone] Adán Contreras MD LAB BLOOD ORDERABLES Final Result Performing Organization Address City/[facility]/ZIP Co de Phone Number [facility] [address] [place] [address], [place] [phone] * APTT (08/30/2024 12:53 PM EDT) PTT 29.8 22.0 - 39.0 seconds 08/30/2024 3:04 PM EDT [facility] Blood Venipuncture / Unknown 08/30/2024 12:53 PM EDT 08/30/2024 2:30 PM EDT [facility] - 08/30/2024 3:04 PM EDT PTT = The equivalent PTT values for the therapeutic range of heparin levels at 0.3 to 0.5 U/ml are 60 to 70 seconds. Adán Contreras MD LAB BLOOD ORDERABLES Final Result [facility]
[address] [place] [address], [place] [phone] * Protime-INR (08/30/2024 12:53 PM EDT) Protime 13.7 12.2 - 14.5 Seconds 08/30/2024 3:04 PM EDT [facility] INR 1.03 0.89 - 1.12 08/30/2024 3:04 PM EDT [facility] Blood Venipuncture / Unknown 08/30/2024 12:53 PM EDT 08/30/2024 2:30 PM EDT Adán Contreras MD LAB BLOOD ORDERABLES Final Result Performing Organization Address City/[facility]/ZIP Co de Phone Number [facility]
[address] [place] [address], * Hemoglobin A1c (08/30/2024 12:53 PM EDT) Hemoglobin A1C 5.10 4.80 - 5.60 % 08/30/2024 3:30 PM EDT [facility] Blood Venipuncture / Unknown 08/30/2024 12:53 PM EDT 08/30/2024 2:30 PM EDT Narrative [facility] - 08/30/2024 3:30 PM EDT Hemoglobin A1C Ranges: Increased Risk for Diabetes 5.7% to 6.4% Diabetes >= 6.5% Diabetic Goal < 7.0% Adán Contreras MD LAB BLOOD ORDERABLES Final Result Performing Organization Address City/[facility]/ZIP Co de Phone Number [facility]
[address] [place] [address], * IMAGING SCANNED (08/08/2024) Anatomical Region Laterality Modality Radiographic Alanis ging Faina Benson MD IMG DIAGNOSTIC IMAGING ORDERABL ES Final Result * XR Knee 4+ View Left (06/13/2024 1:25 PM EDT) Anatomical Region Laterality Modality Lower Extremities, Knee Left Xray Narrative 06/13/2024 2:02 PM EDT Indication: Left knee pain Comparison: Todays xrays were compared to previous xrays from 05/11/2023 Knee films: moderate to severe tricompartmental arthritis with genu varum alignment and kxvo-ss-cyuo articulation medial compartment (Kellgren-Eduardo grade 4), periarticular osteophytes visualized in all compartments and Radiographs demonstrate worsening deformity with advancing arthritic changes and wear compared to prior radiographs. dAán Contreras MD IMG DIAGNOSTIC IMAGING LASHAY MARTINEZ Final Result * [place] ARTHROCENTESIS ASPIR&/INJ MAJOR JT/BURSA W/O US (08/10/2023 8:21 AM EDT) Narrative Justine Goyal CMA - 08/10/2023 8:21 AM EDT Justine Goyal CMA 08/10/2023 8:48 AM Large Joint Arthrocentesis: L knee Date/Time: 08/10/2023 8:21 AM Consent given by: patient Site marked: site marked Timeout: Immediately prior to procedure a time out was called to verify the correct patient, procedure, equipment, learning support assistant and site/side marked as required Supporting Documentation Indications: pain Procedure Details Location: knee - L knee Preparation: Patient was prepped and draped in the usual sterile fashion Needle gauge: 21g. Approach: anterolateral Medications administered: 1 mL bupivacaine (PF) 0.5 %; 3 mL lidocaine PF 1% 1 %; 80 mg triamcinolone acetonide 40 MG/ML Patient tolerance: patient tolerated the procedure well with no immediate complications Adán Contreras MD PROCEDURE/MINOR SURGICAL OR DERABLES Final Result * LAB VENIPUNCTURE (BILL ONLY) (07/28/2023 9:12 AM EDT) Blood Venipuncture / Unknown 07/28/2023 9:12 AM EDT 07/28/2023 9:13 AM EDT Submitter Client LAB BLOOD ORDERABLES Final Resu lt [facility]
[address] [facility] [place] [address], * T4 (07/28/2023 9:11 AM EDT) T4, Total 7.9 4.5 - 12.0 ug/dL [facility] Blood 07/28/2023 9:11 AM EDT 07/28/2023 Comment:Blood Release to selam Hopkins [facility] (AMB[facility]ATORY) - 07/29/2023 8:17 AM EDT Performed at: 02 - [facility] [address] [place], [place] [id number] Business Editor: Aly Jauregui PhD, Phone: [phone] Faina Benson MD LAB BLOOD ORDERABLES Final Resu lt [facility] [address] [place] [address], [facility] [address] [place] [address], * XR Hips Bilateral With or Without Pelvis 3-4 View (05/11/2023 10:46 AM EDT) Anatomical Region Laterality Modality Lower Extremities, Hip Bilateral Radiograp hic Imaging 05/12/2023 10:4 0 AM EDT Impressions 05/12/2023 10:41 AM EDT Impression: AP radiographs of the pelvis and bilateral hips were obtained. No acute fracture is identified. Bony pelvis appears intact. Bilateral hips appear congruent. No osseous erosions are seen. Sacroiliac joints are unremarkable. Soft tissues demonstrate no acute abnormality. Electronically Signed: Brenden Roberson 05/12/2023 10:41 AM EDT Workstation ID: [id number] Narrative 05/12/2023 10:41 AM EDT XR HIPS BILATERAL W OR WO PELVIS 3-4 VIEW Date of Exam: 05/11/2023 10:45 AM EDT Indication: Several month history of bilateral hip pain, no known injury or trauma Comparison: None available. Findings/ Procedure Note Brenden Roberson MD - 05/12/2023 XR HIPS BILATERAL W OR WO PELVIS 3-4 VIEW Date of Exam: 05/11/2023 10:45 AM EDT Indication: Several month history of bilateral hip pain, no known injuryor trauma Comparison: None available. Findings/ IMPRESSION: Impression: AP radiographs of the pelvis and bilateral hips were obtained. No acutefracture is identified. Bony pelvis appears intact. Bilateral hips appearcongruent. No osseous erosions are seen. Sacroiliac joints areunremarkable. Soft tissues demonstrate no acute abnormality. Electronically Signed: Brenden Roberson 05/12/2023 10:41 AM EDT Workstation ID: [id number] Faina Benson MD IMG DIAGNOSTIC IMAGING ORDERABL ES Final Result * CBC & Differential (05/11/2023 10:17 AM EDT) Only the most recent of2 resultswithin the time period is included. WBC 4.42 3.40 - 10.80 10*3/mm3 [facility] RBC 4.15 3.77 - 5.28 10*6/mm3 [facility] Hemoglobin 12.6 12.0 - 15.9 g/dL [facility] Hematocrit 36.9 34.0 - 46.6 % [facility] MCV 88.9 79.0 - 97.0 fL [facility] MCH 30.4 26.6 - 33.0 pg [facility] MCHC 34.1 31.5 - 35.7 g/dL [facility] RDW 13.0 12.3 - 15.4 % [facility] Platelets 291 140 - 450 10*3/mm3 [facility] Neutrophil Rel % 51.9 42.7 - 76.0 % [facility] Lymphocyte Rel % 36.4 19.6 - 45.3 % [facility] Monocyte Rel % 7.2 5.0 - 12.0 % [facility] Eosinophil Rel % 2.9 0.3 - 6.2 % [facility] Basophil Rel % 1.4 0.0 - 1.5 % [facility] Neutrophils Absolute 2.29 1.70 - 7.00 10*3/mm3 [facility] Lymphocytes Absolute 1.61 0.70 - 3.10 10*3/mm3 [facility] Monocytes Absolute 0.32 0.10 - 0.90 10*3/mm3 [facility] Eosinophils Absolute 0.13 0.00 - 0.40 10*3/mm3 [facility] Basophils Absolute 0.06 0.00 - 0.20 10*3/mm3 [facility] Immature Granulocyte Rel % 0.2 0.0 - 0.5 % [facility] Immature Grans Absolute 0.01 0.00 - 0.05 10*3/mm3 [facility] nRBC 0.0 0.0 - 0.2 /100 WBC [facility] Blood 05/11/2023 10:1 7 AM EDT 05/11/2023 Comment:Blood Manual Differe n Narrative [facility] ([facility]) - 05/11/2023 8:08 PM EDT Performed at: [address] [place] [id number] Business Editor: Fady Rocha MD, Phone: [phone] Faina Benson MD LAB BLOOD ORDERABLES Final Resu lt Performing Organization Address City/[facility]/ZIP Co de Phone Number [facility] [address] [place] [address], [facility] [address] [place] [address], * Specimen Status Report (01/18/2023 12:00 AM EST) Specimen Status CANCELED [facility] Comment: Test not performed. Insufficient specimen to perform or complete analysis. TEST: [id number] Urinalysis, Complete Result canceled by the ancillary. 01/18/2023 01/18/2023 Narrative [facility] ([facility]) - 01/23/2023 7:07 PM EST Performed at: - [facility] [address] [place], [place] [id number] Business Editor: Aly Jauregui PhD, Phone: [phone] Dejah Park APRN LAB BLOOD ORDERABLES Edited Res ult - Final Performing Organization Address City/[facility]/ZIP Co de Phone Number [facility] [address] [place] [address], [facility] [address] [place] [address], * Urinalysis With Microscopic - (01/18/2023 12:00 AM EST) Specific [place], UA CANCELED [facility] Comment: Test not performed. Insufficient specimen to perform or complete analysis. Result canceled by the ancillary. pH, UA CANCELED [facility] Comment: Test not performed Result canceled by the ancillary. Protein CANCELED [facility] Comment: Test not performed Result canceled by the ancillary. Glucose, UA CANCELED [facility] Comment: Test not performed Result canceled by the ancillary. Ketones CANCELED [facility] Comment: Test not performed Result canceled by the ancillary. 01/18/2023 01/18/2023 [facility] - 01/23/2023 7:07 PM EST Performed at: [address] [place] [address] [address] [place], [place] [id number] Business Editor: Aly Jauregui PhD, Phone: [phone] Dejah Park [employer] URINE ORDERABLES Edited Result - Final [facility] ([facility]) [address] [place] [address], [facility] [address] [place] [id number], * ALT (02/11/2022 11:42 AM EDT) Only the most recent of2 resultswithin the time period is included. Pathologist [facility] [place] ALT (SGPT) 14 1 - 33 U/L [facility] Blood 02/11/2022 11:4 2 AM EDT 02/11/2022 Comment:Blood Release to pat i [facility] - 02/11/2022 7:07 PM EDT Performed at: [address] [place] [address] [id number] Business Editor: Fady Rocha MD, Phone: [phone] us Faina Benson MD LAB BLOOD ORDERABLES Final Resu lt Performing Organization Address City/[facility]/ZIP Co de Phone Number [facility] [address] [id number], [facility] [address] [place] [address], [place] [phone] * AST (02/11/2022 11:42 AM EDT) Only the most recent of2 resultswithin the time period is included. [facility] AST (SGOT) 16 1 - 32 U/L [facility] Blood 02/11/2022 11:4 2 AM EDT 02/11/2022 Comment:Blood Release to [facility] - 02/11/2022 7:07 PM EDT Performed at: [address] [place] [address] [id number] Business Editor: Fady Rocha MD, Phone: [phone] us Faina Benson MD LAB BLOOD ORDERABLES Final Resu lt [facility] [address] [place] [address], [place] [phone] [facility] [address] [place] [address], * HIV-1 / O / 2 Ag / Antibody 4th Generation (06/25/2021 9:40 AM EDT) Only the most recent of3 resultswithin the time period is included. [facility] HIV-1/ HIV-2 Non-React drake Non-React drake 06/25/2021 9:34 PM EDT [facility] Comment:A non-reactive test result does not preclude the possibility of exposure to HIV or infection with HIV. An antibody response to recent exposure may take several months to reach detectable levels. Blood Venipuncture / Unknown 06/25/2021 9:40 AM EDT 06/25/2021 9:40 AM EDT [facility] - 06/25/2021 9:34 PM EDT The HIV antibody/antigen combo assay is a qualitative assay for HIV that includes the p24 antigen as well as antibodies to HIV types 1 and 2. This test is intended to be used as a screening assay in the diagnosis of HIV infection in patients over the age of 2. Results may be falsely decreased if patient taking Biotin. us Faina Benson MD LAB BLOOD ORDERABLES Final Resu lt Performing Organization Address [facility] Co de Phone Number [facility]
[address] [place] [address], * Hepatitis C Antibody (06/25/2021 9:40 AM EDT) Only the most recent of4 resultswithin the time period is included. Hepatitis C Ab Non-Reacti ve Non-Reacti ve 06/25/2021 9:34 PM EDT [facility] Blood Venipuncture / Unknown 06/25/2021 9:40 AM EDT 06/25/2021 9:40 AM EDT [facility] - 06/25/2021 9:34 PM EDT Results may be falsely decreased if patient taking Biotin. us Faina Benson MD LAB BLOOD ORDERABLES Final Resu lt Performing Organization Address [facility] de Phone Number [facility]
[address] [place] [address], * SCANNED - LABS (03/27/2021) us Faina Benson MD LAB BLOOD ORDERABLES Final Resu lt * (ABNORMAL) NuSwab VG+ - Swab, Vagina (07/08/2020 9:14 AM EDT) Atopobium Vaginae Low - 0 Score 020 6:09 AM EDT [facility] BVAB 2 Low - 0 Score 07/11/2020 6:09 AM EDT [facility] Megasphaera 1 Low - 0 Score 07/11/2020 6:09 AM EDT [facility] Comment: Calculate total score by adding the 3 individual bacterial vaginosis (BV) marker scores together. Total score is interpreted as follows: Total score 0-1: Indicates the absence of BV. Total score 2: Indeterminate for BV. Additional clinical data should be evaluated to establish a diagnosis. Total score 3-6: Indicates the presence of BV. This test was developed and its performance characteristics determined by [facility]. It has not been cleared or approved by the Food and Drug Administration. The FDA has determined that such clearance or approval is not necessary. Brenna Albicans, MELLO Negative Negative 07/11/2020 6:09 AM EDT [facility] Brenna Glabrata, MELLO Positive(A) Negative 07/11/2020 6:09 AM EDT [facility] Comment: Published data demonstrate that up to 65% of Brenna glabrata identified in cases of vaginal candidiasis have decreased susceptibility to fluconazole. Trichomonas vaginosis Negative Negative 07/11/2020 6:09 AM EDT [facility] Chlamydia trachomatis, MELLO Negative Negative 07/11/2020 6:09 AM EDT [facility] Neisseria gonorrhoeae, MELLO Negative Negative 07/11/2020 6:09 AM EDT [facility] Swab Specimen from vagina / Unknown Collection / Unknown 07/08/2020 9:14 AM EDT 07/08/2020 9:14 AM EDT Narrative [facility] - 07/11/2020 6:09 AM EDT Test(s) 633459-Rscizjd albicans, MELLO; 460885-Evfnlnq glabrata, MELLO was developed and its performance characteristics determined by [facility]. It has not been cleared or approved by the Food and Drug Administration. Performed at: 01 - [address] [id number] Business Editor: Manav Kim MD, Phone: [phone] Faina Benson MD MICROBIOLOGY - GENERAL ORDERABL ES Final Result [facility] [address] [place] [address], * (ABNORMAL) RPR Titer (07/08/2020 9:14 AM EDT) RPR Titer Pos 1:128(A) Negative 07/09/2020 12:01 AM EDT [facility] Blood Left upper arm structure / Unknown Venipuncture / Unknown 07/08/2020 9:14 AM EDT 07/08/2020 9:16 AM EDT us Faina Benson MD LAB BLOOD ORDERABLES Final Resu lt [facility]
[address] [place] [address], * (ABNORMAL) RPR (07/08/2020 9:14 AM EDT) RPR Reactive(A ) Non-Reacti ve 07/09/2020 12:01 AM EDT [facility] Blood Left upper arm structure / Unknown Venipuncture / Unknown 07/08/2020 9:14 AM EDT 07/08/2020 9:16 AM EDT us Faina Benson MD LAB BLOOD ORDERABLES Final Resu lt [facility]
[address] [place] [address], * (ABNORMAL) Treponema Pallidum, Confirmation (07/08/2020 9:14 AM EDT) Treponema pallidum Antibodies Reactive( A) Non Reactive 07/10/2020 5:08 PM EDT [facility] Blood Left upper arm structure / Unknown Venipuncture / Unknown 07/08/2020 9:14 AM EDT 07/08/2020 9:16 AM EDT Narrative [facility] - 07/10/2020 5:08 PM EDT Performed at: [facility] [address] [id number] Business Editor: Aly Jauregui PhD, Phone: [phone] Faina Benson MD LAB BLOOD ORDERABLES Final Resu lt Performing Organization Address [facility]/ZIP Co de Phone Number [facility] [address] [place] [address], * Virus Culture - Swab, Labia (07/08/2020 9:13 AM EDT) Pathologist [facility] Viral Culture, General No virus isolated. 07/17/2020 11:09 AM EDT [facility] Swab Swab from labia / Unknown Collection / Unknown 07/08/2020 9:13 AM EDT 07/08/2020 9:13 AM EDT Narrative [facility] - 07/17/2020 11:09 AM EDT Performed at: [address] [place] [phone] Business Editor: Manav Kim MD, Phone: [phone] Faina Benson MD MICROBIOLOGY - GENERAL ORDERABL ES Final Result Performing Organization Address [facility] Co de Phone Number [facility] [address] [place] [address], * CT Chest With & Without Contrast (06/05/2020 10:09 AM EDT) Anatomical Region Laterality Modality Chest N/A Computed Tomogra phy 06/05/2020 11:3 9 AM EDT Impressions 06/07/2020 5:21 PM EDT No acute intrathoracic process. Area marked by external BB overlies the right paramedian anterior chest in the region of the costochondral junction where there is prominence of potential degeneration however no erosive process focal fluid collection or soft tissue mass evident. E: 06/05/2020 This report was finalized on 06/07/2020 5:[address] Burton August. Narrative 06/07/2020 5:21 PM EDT EXAMINATION: CT CHEST W WO CONTRAST- 06/05/2020 INDICATION: R22.2-Localized swelling, mass and lump, trunk TECHNIQUE: CT chest with and without intravenous contrast The radiation dose reduction device was turned on for each scan per the ALARA (As Low as Reasonably Achievable) protocol. COMPARISON: None FINDINGS: Thyroid is homogeneous in attenuation. No bulky mediastinal adenopathy. Central airways are patent. Esophagus in normal course and caliber. Patent nonaneurysmal thoracic aorta with patent great vessel origins. Central pulmonary arteries are grossly patent. Cardiac size within normal limits and without pericardial effusion. Extended lung windows without focal opacification or consolidation. No dominant nodule or mass lesion. Minimal subsegmental atelectasis. Degenerative changes of the spine without aggressive osseous lesion. Area of interest marked overlies the right costochondral junction without soft tissue mass or erosive process evident. No focal fluid collection at this site or elsewhere. Visualized portions of the upper abdomen demonstrate hepatic steatosis status post cholecystectomy. Procedure Note Burton August DO - 06/07/2020 EXAMINATION: CT CHEST W WO CONTRAST- 06/05/2020 INDICATION: R22.2-Localized swelling, mass and lump, trunk TECHNIQUE: CT chest with and without intravenous contrast The radiation dose reduction device was turned on for each scan per the ALARA (As Low as Reasonably Achievable) protocol. COMPARISON: None FINDINGS: Thyroid is homogeneous in attenuation. No bulky mediastinal adenopathy. Central airways are patent. Esophagus in normal course and caliber. Patent nonaneurysmal thoracic aorta with patent great vessel origins. Central pulmonary arteries are grossly patent. Cardiac size within normal limits and without pericardial effusion. Extended lung windows without focal opacification or consolidation. No dominant nodule or mass lesion. Minimal subsegmental atelectasis. Degenerative changes of the spine without aggressive osseous lesion. Area of interest marked overlies the right costochondral junction without soft tissue mass or erosive process evident. No focal fluid collection at this site or elsewhere. Visualized portions of the upper abdomen demonstrate hepatic steatosis status post cholecystectomy. IMPRESSION: No acute intrathoracic process. Area marked by external BB overlies the right paramedian anterior chest in the region of the costochondral junction where there is prominence of potential degeneration however no erosive process focal fluid collection or soft tissue mass evident. E: 06/05/2020 This report was finalized on 06/07/2020 5:[address] Burton August. us Samuel Akbar MD IMG CT ORDERABLES Final R esult * POC Creatinine (06/05/2020 9:57 AM EDT) Creatinine 0.90 0.60 - 1.30 mg/dL 06/05/2020 10:21 AM EDT [facility] Comment:Serial Number: [id number] 9Operator: [id number] Blood 06/05/2020 9:57 AM EDT 06/05/2020 10:21 AM EDT us Samuel Akbar MD POINT OF CARE TEST ORDERA BLES Final Result [facility]
[address] [place] [address], * (ABNORMAL) US Breast Right Limited (05/10/2020 11:05 AM EDT) Anatomical Region Laterality Modality Breast Right Ultrasound 05/10/2020 10:5 4 AM EDT Impressions 05/10/2020 12:06 PM EDT BI-RADS 4 SUSPICIOUS ABNORMALITY RIGHT PARASTERNAL AREA RECOMMENDATION: Surgical consult with Dr. Jessica Washington. It is recommended the patient undergo additional diagnostic imaging such as a CT scan to further evaluate this area to assess whether reflects a fracture or dislocation or alternatively if it reflects a tumor. If there is soft tissue density which can schedule the patient to return for a biopsy under ultrasound guidance if that is deemed appropriate. CAD was utilized. The standard false-negative rate of mammography is between 10% and 25%. Complex patterns or increased breast density will markedly elevate the false-negative rate of mammography. A results letter, in lay terminology, will be given to the patient at the conclusion of the exam. Physicians Order Ultrasound Guided Core Biopsy Right Breast Mass Diagnosis: Abnormal Mammogram This report was finalized on 05/10/2020 12:[address] Karen Alford MD. Narrative 05/10/2020 12:06 PM EDT EXAMINATION: BILATERAL DIAGNOSTIC DIGITAL MAMMOGRAM AND TARGETED RIGHT PARASTERNAL ULTRASOUND HISTORY: Patient is for six-month follow-up. 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 She feels an area of palpable concern near the sternum. This area is not included in the mammographic images due to its location. TECHNIQUE: Combination 2-D/3-D standard views of both breasts as well as targeted right breast ultrasound. COMPARISON: Comparison is made to prior mammograms dating back to 06/28/2015. FINDINGS: The breast tissue is composed of scattered areas of fibroglandular densities. Changes consistent with bilateral excisional biopsies are present. No new suspicious masses, microcalcifications or areas of architectural distortion are identified. Targeted ultrasound to the area of palpable concern near the sternum demonstrates an irregular area of shadowing that appears separate from a rib at 3:00 on the right 14 cm from the nipple. It appears to measure 1 cm as visualized. On repeat imaging there appears to be echogenic cortex surrounding this area suggesting that it is of bony etiology. us Karen Alford MD IMG US ORDERABLES Final Res ult * (ABNORMAL) Mammo Diagnostic Digital Tomosynthesis Bilateral With CAD (05/10/2020 10:31 AM EDT) Only the most recent of3 resultswithin the time period is included. Anatomical Region Laterality Modality Breast Bilateral Mammography 05/10/2020 10:5 4 AM EDT Impressions 05/10/2020 12:06 PM EDT BI-RADS 4 SUSPICIOUS ABNORMALITY RIGHT PARASTERNAL AREA RECOMMENDATION: Surgical consult with Dr. Jessica Washington. It is recommended the patient undergo additional diagnostic imaging such as a CT scan to further evaluate this area to assess whether reflects a fracture or dislocation or alternatively if it reflects a tumor. If there is soft tissue density which can schedule the patient to return for a biopsy under ultrasound guidance if that is deemed appropriate. CAD was utilized. The standard false-negative rate of mammography is between 10% and 25%. Complex patterns or increased breast density will markedly elevate the false-negative rate of mammography. A results letter, in lay terminology, will be given to the patient at the conclusion of the exam. Physicians Order Ultrasound Guided Core Biopsy Right Breast Mass Diagnosis: Abnormal Mammogram This report was finalized on 05/10/2020 12:[address] Karen Alford MD. Narrative 05/10/2020 12:06 PM EDT EXAMINATION: BILATERAL DIAGNOSTIC DIGITAL MAMMOGRAM AND TARGETED RIGHT PARASTERNAL ULTRASOUND HISTORY: Patient is for six-month follow-up. 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 She feels an area of palpable concern near the sternum. This area is not included in the mammographic images due to its location. TECHNIQUE: Combination 2-D/3-D standard views of both breasts as well as targeted right breast ultrasound. COMPARISON: Comparison is made to prior mammograms dating back to 06/28/2015. FINDINGS: The breast tissue is composed of scattered areas of fibroglandular densities. Changes consistent with bilateral excisional biopsies are present. No new suspicious masses, microcalcifications or areas of architectural distortion are identified. Targeted ultrasound to the area of palpable concern near the sternum demonstrates an irregular area of shadowing that appears separate from a rib at 3:00 on the right 14 cm from the nipple. It appears to measure 1 cm as visualized. On repeat imaging there appears to be echogenic cortex surrounding this area suggesting that it is of bony etiology. us Faina Benson MD IMG MAMMOGRAPHY ORDERABLES Betty l Result * XR Spine Thoracic 3 View (07/26/2019 10:25 AM EDT) Anatomical Region Laterality Modality Spine, T-spine N/A Radiographic Alanis ging 07/27/2019 10:0 9 AM EDT Impressions 07/28/2019 11:10 AM EDT Minimal multilevel degenerative changes seen throughout the thoracic spine with no evidence of fracture or dislocation. E: 07/27/2019 This report was finalized on 07/28/2019 11:[address] Milvia Patel MD. Narrative 07/28/2019 11:10 AM EDT EXAMINATION: XR SPINE THORACIC 3 VW- INDICATION: Two week history of acute mid thoracic back pain, no injury or trauma; M54.6-Pain in thoracic spine. COMPARISON: None. FINDINGS: AP, lateral, and Swimmers' views of the thoracic spine reveal multilevel degenerative changes seen diffusely throughout the thoracic spine. There is anterior spurring seen with pedicles intact. Facets are well aligned. No fracture or dislocation. No loss of height to suggest compression deformity. Procedure Note Milvia Patel MD - 07/28/2019 EXAMINATION: XR SPINE THORACIC 3 VW- INDICATION: Two week history of acute mid thoracic back pain, no injury or trauma; M54.6-Pain in thoracic spine. COMPARISON: None. FINDINGS: AP, lateral, and Swimmers' views of the thoracic spine reveal multilevel degenerative changes seen diffusely throughout the thoracic spine. There is anterior spurring seen with pedicles intact. Facets are well aligned. No fracture or dislocation. No loss of height to suggest compression deformity. IMPRESSION: Minimal multilevel degenerative changes seen throughout the thoracic spine with no evidence of fracture or dislocation. E: 07/27/2019 This report was finalized on 07/28/2019 11:[address] Milvia Patel MD. Faina Benson MD IMG DIAGNOSTIC IMAGING ORDERABL ES Final Result * Vitamin D 25 Hydroxy (07/26/2019 9:55 AM EDT) Only the most recent of2 resultswithin the time period is included. 25 Hydroxy, Vitamin D 40.2 30.0 - 100.0 ng/ml 07/26/2019 7:27 PM EDT [facility] Blood Left upper arm structure / Unknown Venipuncture / Unknown 07/26/2019 9:55 AM EDT 07/26/2019 9:58 AM EDT Narrative [facility] - 07/26/2019 7:27 PM EDT Reference Range for Total Vitamin D 25(OH) Deficiency <20.0 ng/mL Insufficiency 21-29 ng/mL Sufficiency 30-100 ng/mL Toxicity >100 ng/ml us Faina Benson MD LAB BLOOD ORDERABLES Final Resu lt Performing Organization Address [facility] Co de Phone Number [facility]
[address] [place] [address], * T4, Free (07/26/2019 9:55 AM EDT) Free T4 1.08 0.93 - 1.70 ng/dL 07/26/2019 7:27 PM EDT [facility] Blood Left upper arm structure / Unknown Venipuncture / Unknown 07/26/2019 9:55 AM EDT 07/26/2019 9:58 AM EDT us Faina Benson MD LAB BLOOD ORDERABLES Final Resu lt Performing Organization Address [facility] Co de Phone Number [facility]
[address] [place] [address], * Folate (07/26/2019 9:55 AM EDT) Folate 11.10 4.78 - 24.20 ng/mL 07/26/2019 7:30 PM EDT [facility] Blood Left upper arm structure / Unknown Venipuncture / Unknown 07/26/2019 9:55 AM EDT 07/26/2019 9:58 AM EDT us Faina Benson MD LAB BLOOD ORDERABLES Final Resu lt Performing Organization Address City/[facility]/ZIP Co de Phone Number [facility]
[address] [place] [address], * Vitamin B12 (07/26/2019 9:55 AM EDT) Vitamin B-12 671 211 - 946 pg/mL 07/26/2019 7:30 PM EDT [facility] Blood Left upper arm structure / Unknown Venipuncture / Unknown 07/26/2019 9:55 AM EDT 07/26/2019 9:58 AM EDT us Faina Benson MD LAB BLOOD ORDERABLES Final Resu lt [facility]
[address] [place] [address], * SCANNED - INFLUENZA (11/21/2018) us Faina Benson MD CHART REVIEW TABS Final Resu lt * Urine Drug Screen - Urine, Clean Catch (11/21/2018) Urine Urine specimen collection, clean catch / Unknown us Faina Benson MD URINE ORDERABLES Final Result [facility]
[address] [place] [address], [place] [phone] * XR Spine Lumbar 2 or 3 View (08/10/2018 12:28 PM EDT) Anatomical Region Laterality Modality Spine, L-spine N/A Radiographic Alanis ging 08/10/2018 1:33 PM EDT Impressions 08/10/2018 1:35 PM EDT Mild progressive degenerative change. E: 08/10/2018 This report was finalized on 08/10/2018 1:35 PM by Jason Rascon. Narrative 08/10/2018 1:35 PM EDT EXAMINATION: XR SPINE LUMBAR 2 OR 3 VW- 08/10/2018 INDICATION: BACK PAIN, <6 WKS TECHNIQUE: Three views lumbar spine COMPARISONS: 10/19/2016 FINDINGS: Subtle levoconvex curvature, apex L3. Sacral arcuate lines remain preserved. Mild degenerative changes of the sacroiliac joints. Grade 1 anterolisthesis of L4 with respect to L5, increased since 2016. Unchanged disc space narrowing, facet arthropathy and osteophytic spurring. Procedure Note Jason Rascon MD - 08/10/2018 EXAMINATION: XR SPINE LUMBAR 2 OR 3 VW- 08/10/2018 INDICATION: BACK PAIN, <6 WKS TECHNIQUE: Three views lumbar spine COMPARISONS: 10/19/2016 FINDINGS: Subtle levoconvex curvature, apex L3. Sacral arcuate lines remain preserved. Mild degenerative changes of the sacroiliac joints. Grade 1 anterolisthesis of L4 with respect to L5, increased since 2016. Unchanged disc space narrowing, facet arthropathy and osteophytic spurring. IMPRESSION: Mild progressive degenerative change. E: 08/10/2018 This report was finalized on 08/10/2018 1:35 PM by Jason Rascon. Faina Benson MD IMG DIAGNOSTIC IMAGING ORDERABL ES Final Result * Tissue Pathology Exam (07/01/2018 12:45 PM EDT) Only the most recent of3 resultswithin the time period is included. Case Report Surgical Pathology Report Case: [id number] Authorizing Provider: Samuel Akbar MD Collected: 07/01/2018 12:45 PM Pathologist: Gomez Horn MD Received: 07/01/2018 03:45 PM Specimen: Breast, Left 07/05/2018 5:58 PM EDT [facility] Clinical Information The working history is left breast mass. 07/05/2018 5:58 PM EDT [facility] Final Diagnosis LEFT BREAST MASS UNORIENTED NEEDLE LOCALIZED EXCISION: Residual intraductal papilloma. Focal atypical ductal hyperplasia with calcifications see micro Proliferative fibrocystic change Previous biopsy site identified. No invasive carcinoma identified. DGD/dlb 07/05/2018 5:58 PM EDT [facility] at 1758 EDT Gross Description Received in formalin labeled as left breast mass is a 5 gram, 4.0 x 2.8 x 0.9 cm unoriented needle localized excisional breast biopsy. The specimen is inked blue and serially sectioned to reveal a coiled biopsy clip. The specimen is otherwise grossly unremarkable and consists of yellow lobulated fat. No discrete nodules or other gross lesions are identified. The specimen is submitted entirely with all slices intact as follows: 1-A - margin opposite needle localization wire, en face; 1B-1F - serial sections (section with clip in block 1-E); 1-G - margin containing needle localization wire, en face. Cold ischemic time is 17 minutes and total time in formalin is greater than 6 hours. LED/dlb 07/05/2018 5:58 PM EDT [facility] Microscopic Description Sections of the needle localized excision show a small area of residual intraductal papilloma that was noted on the previous biopsy. The surrounding tissue shows a modest degree of fibrocystic change with focal duct epithelial hyperplasia. There is a small congerie of ducts displaying a moderate degree of nuclear atypia, nuclear overlap and visible nucleoli with intraductal cellular debris and dystrophic calcifications; this is worrisome for focal insitu ductal carcinoma however it does not meet the size criteria for that diagnosis and falls in the category of atypical ductal hyperplasia. The margin of resection is not involved by this process. No invasive carcinoma is noted. The previous biopsy site is identified. 07/05/2018 5:58 PM EDT [facility] Tissue Specimen from breast / Unknown 07/01/2018 12:45 PM EDT 07/01/2018 3:45 PM EDT us Samuel Akbar MD PATHOLOGY/CYTOLOGY ORDERA BLES Final Result [facility]
[address] [place] [address], * Mammo Breast Specimen (07/01/2018 12:40 PM EDT) Anatomical Region Laterality Modality Breast N/A Other 07/01/2018 1:21 PM EDT Impressions 07/08/2018 12:21 PM EDT Successful needle localization of a postbiopsy marking clip and adjacent tissue at the site of a biopsy proven papilloma. PATHOLOGY: RESIDUAL INTRADUCTAL PAPILLOMA. FOCAL ATYPICAL DUCTAL HYPERPLASIA WITH CALCIFICATIONS IN PROLIFERATIVE FIBROCYSTIC CHANGE. THE PREVIOUS BIOPSY SITE IS IDENTIFIED. RECOMMENDATION: 1. Bilateral diagnostic mammogram with tomosynthesis in 6 months. The patient will be due for follow-up right mammographic imaging status post benign core biopsy and follow-up left mammographic imaging status post excisional biopsy. 2. Genetic counseling is strongly recommended due to the patient's diagnosis of ADH on excisional biopsy, as well as her strong family history of breast and ovarian cancer. 3. Screening breast MRI is recommended. This report was finalized on 07/08/2018 12:[address] Rochelle Herbert MD. Narrative 07/08/2018 12:21 PM EDT LEFT BREAST NEEDLE LOCALIZATION CLINICAL HISTORY: 63-year-old patient with a biopsy-proven papilloma in the left 9:30 region. The biopsy site is located anterior to a marking clip that will be localized. TECHNIQUE: After obtaining informed consent and performing a time-out procedure, the left breast was positioned in the alphanumeric grid compression paddle from a medial approach. A ML view was obtained. The lesion undergoing localization was identified. The breast was prepped in the usual sterile fashion and anesthetized with 5 cc of 1% Lidocaine without epinephrine. Next, a 5.0 cm Bard needle was placed into the breast from a medial approach to the appropriate depth and orthogonal views were performed. After confirming accurate positioning of the needle, 0.5 cc of methylene blue was injected. Next, a wire was placed through the needle and the needle was removed with the wire remaining in place. Routine left CC, and ML digital mammographic images were obtained following wire placement. No complications occurred during this procedure. The specimen radiograph demonstrated the presence of the post biopsy marking clip and additional tissue located anterior to the clip. Results of the specimen radiograph were discussed with Dr. Dr. Akbar intraoperatively. Procedure Note Rochelle Herbert MD - 07/08/2018 LEFT BREAST NEEDLE LOCALIZATION CLINICAL HISTORY: 63-year-old patient with a biopsy-proven papilloma in the left 9:30 region. The biopsy site is located anterior to a marking clip that will be localized. TECHNIQUE: After obtaining informed consent and performing a time-out procedure, the left breast was positioned in the alphanumeric grid compression paddle from a medial approach. A ML view was obtained. The lesion undergoing localization was identified. The breast was prepped in the usual sterile fashion and anesthetized with 5 cc of 1% Lidocaine without epinephrine. Next, a 5.0 cm Bard needle was placed into the breast from a medial approach to the appropriate depth and orthogonal views were performed. After confirming accurate positioning of the needle, 0.5 cc of methylene blue was injected. Next, a wire was placed through the needle and the needle was removed with the wire remaining in place. Routine left CC, and ML digital mammographic images were obtained following wire placement. No complications occurred during this procedure. The specimen radiograph demonstrated the presence of the post biopsy marking clip and additional tissue located anterior to the clip. Results of the specimen radiograph were discussed with Dr. Dr. Akbar intraoperatively. IMPRESSION: Successful needle localization of a postbiopsy marking clip and adjacent tissue at the site of a biopsy proven papilloma. PATHOLOGY: RESIDUAL INTRADUCTAL PAPILLOMA. FOCAL ATYPICAL DUCTAL HYPERPLASIA WITH CALCIFICATIONS IN PROLIFERATIVE FIBROCYSTIC CHANGE. THE PREVIOUS BIOPSY SITE IS IDENTIFIED. RECOMMENDATION: 1. Bilateral diagnostic mammogram with tomosynthesis in 6 months. The patient will be due for follow-up right mammographic imaging status post benign core biopsy and follow-up left mammographic imaging status post excisional biopsy. 2. Genetic counseling is strongly recommended due to the patient's diagnosis of ADH on excisional biopsy, as well as her strong family history of breast and ovarian cancer. 3. Screening breast MRI is recommended. This report was finalized on 07/08/2018 12:[address] Rochelle Herbert MD. us Rochelle Herbert MD IMG MAMMOGRAPHY ORDERABLES Fin al Result * Mammo Breast Placement Device Initial Without Biopsy (07/01/2018 9:57 AM EDT) Anatomical Region Laterality Modality Breast Mammography 07/01/2018 1:21 PM EDT Impressions 07/08/2018 12:21 PM EDT Successful needle localization of a postbiopsy marking clip and adjacent tissue at the site of a biopsy proven papilloma. PATHOLOGY: RESIDUAL INTRADUCTAL PAPILLOMA. FOCAL ATYPICAL DUCTAL HYPERPLASIA WITH CALCIFICATIONS IN PROLIFERATIVE FIBROCYSTIC CHANGE. THE PREVIOUS BIOPSY SITE IS IDENTIFIED. RECOMMENDATION: 1. Bilateral diagnostic mammogram with tomosynthesis in 6 months. The patient will be due for follow-up right mammographic imaging status post benign core biopsy and follow-up left mammographic imaging status post excisional biopsy. 2. Genetic counseling is strongly recommended due to the patient's diagnosis of ADH on excisional biopsy, as well as her strong family history of breast and ovarian cancer. 3. Screening breast MRI is recommended. This report was finalized on 07/08/2018 12:[address] Rochelle Herbert MD. Narrative 07/08/2018 12:21 PM EDT LEFT BREAST NEEDLE LOCALIZATION CLINICAL HISTORY: 63-year-old patient with a biopsy-proven papilloma in the left 9:30 region. The biopsy site is located anterior to a marking clip that will be localized. TECHNIQUE: After obtaining informed consent and performing a time-out procedure, the left breast was positioned in the alphanumeric grid compression paddle from a medial approach. A ML view was obtained. The lesion undergoing localization was identified. The breast was prepped in the usual sterile fashion and anesthetized with 5 cc of 1% Lidocaine without epinephrine. Next, a 5.0 cm Bard needle was placed into the breast from a medial approach to the appropriate depth and orthogonal views were performed. After confirming accurate positioning of the needle, 0.5 cc of methylene blue was injected. Next, a wire was placed through the needle and the needle was removed with the wire remaining in place. Routine left CC, and ML digital mammographic images were obtained following wire placement. No complications occurred during this procedure. The specimen radiograph demonstrated the presence of the post biopsy marking clip and additional tissue located anterior to the clip. Results of the specimen radiograph were discussed with Dr. Dr. Akbar intraoperatively. us Samuel Akbar MD IMG MAMMOGRAPHY ORDERABLE S Final Result * SE QUAD ONLY W/ CONTRAST AND EXERCISE (04/26/2018 2:43 PM EDT) CV STRESS PROTOCOL 1 [facility] RAD Stage 1 1 [facility] RAD HR Stage 1 127 [facility] RAD BP Stage 1 160/80 [facility] RAD Duration Min Stage 1 3 E[facility] RAD Duration Sec Stage 1 0 [facility] RAD Grade Stage 1 10 [facility] RAD Speed Stage 1 1.7 E[facility] RAD CV STRESS METS STAGE 1 5 E[facility] RAD Stage 2 2 E[facility] RAD HR Stage 2 151 E[facility] RAD BP Stage 2 168/80 E[facility] RAD Duration Min Stage 2 3 EMC RAD Duration Sec Stage 2 0 E[facility] RAD Grade Stage 2 12 E[facility] RAD Speed Stage 2 2.5 E[facility] RAD BH CV STRESS METS STAGE 2 7.5 E[facility] RAD Stage 3 3 E[facility] RAD HR Stage 3 164 E[facility] RAD Duration Min Stage 3 1 E[facility] RAD Duration Sec Stage 3 0 [facility] RAD Grade Stage 3 14 [facility] RAD Speed Stage 3 3.4 E[facility] RAD BH CV STRESS METS STAGE 3 10.0 E[facility] RAD Baseline HR 61 bpm [facility] RAD Baseline BP 140/80 mmHg [facility] RAD Recovery BP 122/84 mmHg E[facility] RAD Exercise duration (min) 7 min [facility] RAD Exercise duration (sec) 0 sec [facility] RAD Peak HR 166 bpm [facility] RAD Peak BP 180/80 mmHg EMC RAD Recovery HR 74 bpm [facility] RAD Estimated workload 10.0 METS E[facility] RAD BSA 2.0 m^2 [facility] RAD MV E max jayme 50.3 cm/sec [facility] RAD MV A max jayme 59.2 cm/sec [facility] RAD MV E/A 0.85 [facility] RAD BH CV ECHO KENZIE - BZI_BMI 31.3 kilograms/ m^2 EMC RAD BH CV ECHO KENZIE - BSA([place]OCK) 2.1 m^2 E[facility] RAD BH CV ECHO KENZIE - BZI_METRIC_WEIG HT 90.7 kg EMC RAD BH CV ECHO KENZIE - BZI_METRIC_HEIG HT 170.2 cm E[facility] RAD Percent Target HR 125 % [facility] RAD Percent Max Pred HR 106.41 % E[facility] RAD Target HR (85%) 133 bpm [facility] RAD Max. Pred. HR (100%) 156 bpm [facility] RAD BH CV VAS BP LEFT ARM 140/80 mmHg E[facility] RAD Anatomical Region Laterality Modality Other 04/26/2018 2:14 PM EDT Narrative 04/26/2018 6:49 PM EDT Stress echocardiogram within normal limits. Expected exercise time 6:25. Actual exercise 7:00. THR achieved at 3:24. JOHANNY -8. 106% of MPHR. No significant ST or T wave changes noted. Mitral Valve The mitral valve is normal in structure. Trace mitral valve regurgitation is present. Tricuspid Valve The tricuspid valve is normal. Physiologic tricuspid valve regurgitation is present. Additional Study Details A two-dimensional stress echocardiogram with Doppler and color flow was performed. Echocardiographic images were obtained before and after stress. The study is technically good for diagnosis.Verbal consent was obtained from the patient to use Lumason contrast in order to optimize the study. The use of Lumason was indicated to improve delineation of the left ventricular endocardial border. A total of 5 mL Lumason was administered. Rest ECG Baseline ECG of normal sinus rhythm noted. PACs and PVCs noted. Stress ECG Stress ECG rhythm of sinus tachycardia noted. Arrhythmias during stress: rare PACs. Arrhythmias during recovery: rare PACs. Stress Description A stress test was performed following the Ector protocol. The test was stopped because the patient complained of fatigue.THR achieved. The patient reported no symptoms during the stress test. The patient experienced no angina during the stress test. Procedure Note Osmin Mishra MD - 04/26/2018 Stress echocardiogram within normal limits. Expected exercise time 6:25. Actual exercise 7:00. THR achieved at 3:24.JOHANNY -8. 106% of MPHR. No significant ST or T wave changes noted. us Faina Benson MD CV ECHO ORDERABLES Final Result * Mammo Post Clip Placement Bilateral (04/21/2018 2:42 PM EDT) Anatomical Region Laterality Modality Breast Bilateral Mammography 04/23/2018 1:46 PM EDT Narrative 04/28/2018 8:33 AM EDT 10G VACORA VACUUM-ASSISTED ULTRASOUND GUIDED CORE BIOPSY HISTORY: 63-year-old patient with a 0.7 cm mixed solid and cystic mass in the right 11:00 region. PROCEDURE: Written and verbal consent was obtained for ultrasound guided core biopsy of a 0.7 cm right breast mass located at 11:00. Time out was observed to verify the patient's identity and correct location of the breast abnormality. The presence of the lesion was confirmed ultrasound and a lateral approach was chosen. The breast was prepped and draped in the usual sterile fashion and 1% lidocaine with 5 cc and without 4 cc epinephrine was utilized for local anesthesia. A small skin incision was made with a scalpel and a 10-gauge needle with an overlying sheath attached to the core biopsy device was introduced into the breast under direct sonographic guidance. The needle was placed inferior to the mass. A single core sample was obtained. The finding resolved following the first core biopsy. The specimen was placed in formalin and forwarded to the Pathology department. A post biopsy marking clip was placed. Postbiopsy mammographic images were obtained. There is a postbiopsy marking clip in the right 11:00 region. Upon completion of the procedure, manual compression was applied to the biopsy site until all appreciable bleeding subsided and a sterile dressing was applied. Postbiopsy instructions were reviewed with patient by our breast care nurse. A written copy these instructions was also given to the patient. The patient tolerated the procedure well and no immediate complications occurred. SUMMARY: 10-gauge ultrasound guided and vacuum assisted core biopsy of a 0.7cm right breast mass located at 11:00. A postbiopsy marking clip was placed. The biopsy clip appears well-positioned PATHOLOGY: FIBROCYSTIC CHANGE WITH EDGE OF CYSTICALLY DILATED DUCTS WITH APOCRINE METAPLASIA. NO EVIDENCE OF ATYPIA. Pathology results are concordant with imaging. RECOMMENDATION: 1. Short interval right diagnostic mammographic follow-up in 6 months. The ultrasound finding resolved with core biopsy. 2. The patient is a candidate for annual intermediate risk screening breast MRI imaging based on the results of the Amarilys risk assessment model performed at the time of mammographic imaging. 3. Consider genetic counseling for risk assessment. If the patient's lifetime risk of developing breast cancer is 20% or greater she would be a candidate for annual high risk screening MRI along with annual screening mammography. The patient will be called with final biopsy results and recommendations by our breast care nurse. This report was finalized on 04/28/2018 8:[address] Rochelle Herbert MD. Rochelle Herbert MD IMG MAMMOGRAPHY ORDERABLES Fin al Result * US Guided Breast Biopsy With & Without Device Each Additional (04/21/2018 2:42 PM EDT) Anatomical Region Laterality Modality Breast N/A Ultrasound Tissue 04/21/2018 4:37 PM EDT Narrative 04/28/2018 8:35 AM EDT 10G KISHANORA VACUUM-ASSISTED ULTRASOUND GUIDED CORE BIOPSY HISTORY: 63-year-old patient with a 0.9 cm intraductal mass in the left 9:30 region. PROCEDURE: Written and verbal consent was obtained for ultrasound guided core biopsy of a 0.9 cm intraductal left breast mass located at 9:30. Time out was observed to verify the patient's identity and correct location of the breast abnormality. The presence of the lesion was confirmed ultrasound and a lateral approach was chosen. The breast was prepped and draped in the usual sterile fashion and 1% lidocaine with 10 cc and without 4 cc epinephrine was utilized for local anesthesia. A small skin incision was made with a scalpel and a 10-gauge needle with an overlying sheath attached to the core biopsy device was introduced into the breast under direct sonographic guidance. The needle was placed inferior to the mass. A single core sample was obtained. The finding resolved on ultrasound imaging. The specimen was placed in formalin and forwarded to the Pathology department. A post biopsy marking clip was placed. Postbiopsy mammographic images were obtained. The clip appears to be located at the posterior edge of the biopsy cavity. The previously noted mammographic mass is no longer visualized. Upon completion of the procedure, manual compression was applied to the biopsy site until all appreciable bleeding subsided and a sterile dressing was applied. Postbiopsy instructions were reviewed with patient by our breast care nurse. A written copy these instructions was also given to the patient. The patient tolerated the procedure well and no immediate complications occurred. SUMMARY: 10-gauge ultrasound guided and vacuum assisted core biopsy of a 0.9cm intraductal left breast mass located at 9:30. A postbiopsy marking clip was placed. The clip is located at the posterior edge of the biopsy cavity. The previously identified mammographic mass is no longer present. PATHOLOGY: SCLEROSING INTRADUCTAL PAPILLOMA WITHOUT SIGNIFICANT ATYPIA. Pathology results are concordant with imaging. RECOMMENDATION: Surgical consultation. The patient will be called with final biopsy results and recommendations by our breast care nurse. This report was finalized on 04/28/2018 8:[address] Rochelle Herbert MD. us Rochelle Herbert MD G US ORDERABLES Final Result * US Guided Breast Biopsy With & Without Device initial (04/21/2018 2:13 PM EDT) Anatomical Region Laterality Modality Breast N/A Ultrasound Tissue 04/23/2018 1:46 PM EDT Narrative 04/28/2018 8:33 AM EDT 10G KISHANORA VACUUM-ASSISTED ULTRASOUND GUIDED CORE BIOPSY HISTORY: 63-year-old patient with a 0.7 cm mixed solid and cystic mass in the right 11:00 region. PROCEDURE: Written and verbal consent was obtained for ultrasound guided core biopsy of a 0.7 cm right breast mass located at 11:00. Time out was observed to verify the patient's identity and correct location of the breast abnormality. The presence of the lesion was confirmed ultrasound and a lateral approach was chosen. The breast was prepped and draped in the usual sterile fashion and 1% lidocaine with 5 cc and without 4 cc epinephrine was utilized for local anesthesia. A small skin incision was made with a scalpel and a 10-gauge needle with an overlying sheath attached to the core biopsy device was introduced into the breast under direct sonographic guidance. The needle was placed inferior to the mass. A single core sample was obtained. The finding resolved following the first core biopsy. The specimen was placed in formalin and forwarded to the Pathology department. A post biopsy marking clip was placed. Postbiopsy mammographic images were obtained. There is a postbiopsy marking clip in the right 11:00 region. Upon completion of the procedure, manual compression was applied to the biopsy site until all appreciable bleeding subsided and a sterile dressing was applied. Postbiopsy instructions were reviewed with patient by our breast care nurse. A written copy these instructions was also given to the patient. The patient tolerated the procedure well and no immediate complications occurred. SUMMARY: 10-gauge ultrasound guided and vacuum assisted core biopsy of a 0.7cm right breast mass located at 11:00. A postbiopsy marking clip was placed. The biopsy clip appears well-positioned PATHOLOGY: FIBROCYSTIC CHANGE WITH EDGE OF CYSTICALLY DILATED DUCTS WITH APOCRINE METAPLASIA. NO EVIDENCE OF ATYPIA. Pathology results are concordant with imaging. RECOMMENDATION: 1. Short interval right diagnostic mammographic follow-up in 6 months. The ultrasound finding resolved with core biopsy. 2. The patient is a candidate for annual intermediate risk screening breast MRI imaging based on the results of the Amarilys risk assessment model performed at the time of mammographic imaging. 3. Consider genetic counseling for risk assessment. If the patient's lifetime risk of developing breast cancer is 20% or greater she would be a candidate for annual high risk screening MRI along with annual screening mammography. The patient will be called with final biopsy results and recommendations by our breast care nurse. This report was finalized on 04/28/2018 8:[address] Rochelle Herbert MD. us Rochelle Herbert MD [facility] [place] Final Result * (ABNORMAL) US Breast Bilateral Limited (04/21/2018 12:28 PM EDT) Anatomical Region Laterality Modality Breast Bilateral Ultrasound 04/21/2018 12:4 9 PM EDT Impressions 04/21/2018 12:53 PM EDT 1. 0.9 cm intraductal mass in the left 9:30 region located approximately 4-5 cm from the nipple. This finding corresponds to an oval mass noted on mammographic imaging. 2. 0.7 cm mixed solid and cystic mass in the right 11:00 position located 3-4 cm from the nipple. 3. Palpable ridge of fibrous tissue in the right 11:00 region on ultrasound imaging. RECOMMENDATION: 1. Ultrasound-guided core biopsies of masses in the right 11:00 and left 9:30 regions. 2. The patient is a candidate for annual intermediate risk screening breast MRI imaging based on the results of the Amarilys risk assessment model performed at the time of mammographic imaging. 3. Consider genetic counseling for risk assessment. If the patient's lifetime risk of developing breast cancer is 20% or greater she would be a candidate for annual high risk screening MRI along with annual screening mammography. The patient was given information on breast MRI imaging and genetic counseling today. BI-RADS CATEGORY 4, SUSPICIOUS. CAD was utilized. The standard false-negative rate of mammography is between 10% and 25%. Complex patterns or increased breast density will markedly elevate the false-negative rate of mammography. A results letter, in lay terminology, will be given to the patient at the conclusion of the exam. Physician Order: Ultrasound Guided Breast Biopsy Diagnosis: Abnormal ultrasound finding This report was finalized on 04/21/2018 12:[address] Rochelle Herbert MD. Narrative 04/21/2018 12:53 PM EDT BILATERAL DIAGNOSTIC MAMMOGRAM WITH TOMOSYNTHESIS AND BILATERAL BREAST ULTRASOUND: HISTORY: 63-year-old patient with no personal history of breast cancer and no current breast complaints. A sister was diagnosed with breast cancer at age 45. A sister was also diagnosed with ovarian cancer at age 30. The patient has not undergone genetic counseling. The Amarilys risk assessment model performed today revealed a 17.5% estimated lifetime risk for developing breast cancer. The patient's referring physician noted a palpable area in the right 11:00 region. TECHNIQUE: Bilateral low dose full field digital CC and MLO breast imaging was performed with 2D and 3D acquisitions. 2-D/3-D left CC focal compression and right MLO focal compression views were also obtained. Furthermore, focused sonographic imaging was performed of the right upper outer quadrant and left medial breast. COMPARISON: Outside mammogram dated 06/28/2015. FINDINGS: There are scattered areas of fibroglandular density. The bilateral fibroglandular pattern is stable. Possible architectural distortion in the left medial breast improved on focal compression imaging. There are oval, isodense masses in the right 10:00-11:00 region that measures approximately 1.0 cm and left 9:00-10:00 region that measures approximately 0.9 cm. No significant change is noted in bilateral areas of nodularity. There are scattered bilateral coarse calcifications. No worrisome groups of calcifications are identified. Focused sonographic imaging of the right upper outer quadrant demonstrates a 0.9 cm cyst in the deep 10:00-1:00/periareolar region that is felt to correlate to an oval mass noted on mammographic imaging. Other smaller adjacent cysts are noted in the 10:00-11:00 region. There is a 0.7 cm mixed solid and cystic mass in the 11:00 position located approximately 3-4 cm from the nipple. Ultrasound-guided core biopsy is recommended. The palpable abnormality in the right 11:00 region correlates to a ridge of dense fibrous tissue on ultrasound imaging. Focused sonographic imaging of the left medial breast demonstrates a 0.9 cm intraductal mass located in the 9:30 region approximately 4 cm from the nipple. This finding is felt to correlate to the oval mass noted on mammographic imaging. Ultrasound-guided core biopsy is recommended. Clustered cysts are incidentally noted in the 10:00 position and 12:00-12:30 region. us Faina Benson MD IMG US ORDERABLES Final Result * MAMMO outside films (04/21/2018 8:54 AM EDT) Narrative SYSTEMGENERATED, DOCUMENTATION - 04/21/2018 8:54 AM EDT This procedure was auto-finalized with no dictation required. us Faina Benson MD IMG MAMMOGRAPHY ORDERABLES Betty l Result * XR Spine Lumbar 4+ View (10/19/2016 10:49 AM EST) Anatomical Region Laterality Modality Spine, L-spine N/A Radiographic Alanis ging 10/19/2016 2:28 PM EST Impressions 10/19/2016 3:30 PM EST 1. 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 2. Focal sclerosis is identified diffusely in the facets without evidence of facet fracture or pars defect. 3. Subluxation, osteolysis or fracture is not identified. Trace levoscoliosis. 4. No other acute superimposed findings are noted. E: 10/19/2016 This report was finalized on 10/19/2016 3:[address] Osmin Oneil MD. Narrative 10/19/2016 3:30 PM EST EXAMINATION: XR SPINE, LUMBAR, 4+ VIEWS-10/19/2016: INDICATION: Back pain radiating into legs; M54.42-Lumbago with sciatica, left side; M54.41-Lumbago with sciatica, right side. COMPARISON: NONE FINDINGS: 1. The pelvic bone structures and hips are intact and within normal limits. 2. There is trace levoscoliosis of the lumbar spine with mild diffuse osteoarthropathy. 3. Previous cholecystectomy has been performed. 4. Oblique views demonstrate facet sclerosis and narrowing indicating arthropathic facet disease diffusely and there is osteophyte bridging. Definite pars defect or facet fracture is not identified. Pedicle erosion is not appreciated. 5. There is no evidence of high grade anterolisthesis, osteolysis or recent fracture. Procedure Note Osmin Oneil MD - 10/19/2016 EXAMINATION: XR SPINE, LUMBAR, 4+ VIEWS-10/19/2016: INDICATION: Back pain radiating into legs; M54.42-Lumbago with sciatica, left side; M54.41-Lumbago with sciatica, right side. COMPARISON: NONE FINDINGS: 1. The pelvic bone structures and hips are intact and within normal limits. 2. There is trace levoscoliosis of the lumbar spine with mild diffuse osteoarthropathy. 3. Previous cholecystectomy has been performed. 4. Oblique views demonstrate facet sclerosis and narrowing indicating arthropathic facet disease diffusely and there is osteophyte bridging. Definite pars defect or facet fracture is not identified. Pedicle erosion is not appreciated. 5. There is no evidence of high grade anterolisthesis, osteolysis or recent fracture. IMPRESSION: 1. 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 2. Focal sclerosis is identified diffusely in the facets without evidence of facet fracture or pars defect. 3. Subluxation, osteolysis or fracture is not identified. Trace levoscoliosis. 4. No other acute superimposed findings are noted. E: 10/19/2016 This report was finalized on 10/19/2016 3:[address] Osmin Oneil MD. us Faina Benson MD IMG DIAGNOSTIC IMAGING ORDERABL ES Final Result * POC Lipid Panel (10/19/2016 10:29 AM EST) Total Cholesterol 241 mg/dL [facility] Triglycerides 153 mg/dL [facility] HDL Cholesterol 71 mg/dL [facility] LDL Cholesterol 140 mg/dL [facility] Lot Number [id number] [facility] Expiration Date 07-15-17 [facility] LDL/HDL Ratio 2.00 [facility] Blood 10/19/2016 10:2 9 AM EST us Faina Benson MD POINT OF CARE TEST ORDERABLES F inal Result [facility]
[address] [place] [address], Visit Diagnoses Diagnosis Start Date Chronic pain of right ankle 09/24/2016 Screening for cardiovascular condition Screening for other and unspecified cardiovascular conditions 09/24/2016 Screening for colon cancer Special screening for malignant neoplasms, colon 09/24/2016 Encounter for health maintenance examination in adult 10/19/2016 Acute midline low back pain with bilateral sciatica 10/19/2016 Screening for cardiovascular condition Screening for other and unspecified cardiovascular conditions 10/19/2016 Hearing loss, bilateral 10/19/2016 Nevus Benign neoplasm of skin, site unspecified 08/05/2017 Encounter for health maintenance examination in adult 04/06/2018 Other chest pain 04/06/2018 Breast mass Lump or mass in breast 04/06/2018 Primary insomnia Persistent disorder of initiating or maintaining sleep 04/06/2018 Other depression 04/06/2018 Generalized anxiety disorder 04/06/2018 Menopause Symptomatic menopausal or female climacteric states 04/06/2018 Seborrheic keratosis 04/06/2018 Screening for cardiovascular condition Screening for other and unspecified cardiovascular conditions 04/06/2018 Family history of coronary artery disease Family history of ischemic heart disease 04/06/2018 Breast mass Lump or mass in breast 04/21/2018 Breast mass Lump or mass in breast 04/21/2018 Breast mass Lump or mass in breast 04/21/2018 Breast mass Lump or mass in breast 04/21/2018 Breast mass Lump or mass in breast 04/21/2018 Menopause Symptomatic menopausal or female climacteric states 04/21/2018 Other chest pain 04/26/2018 Other hyperlipidemia 05/19/2018 Intraductal papilloma of breast, left 05/19/2018 High risk medication use 05/19/2018 Mass of upper inner quadrant of left breast 07/01/2018 Mass of upper inner quadrant of left breast 07/01/2018 Acute left-sided low back pain with left-sided sciatica 08/10/2018 Family history of breast cancer Family history of malignant neoplasm of breast 08/22/2018 Atypical ductal hyperplasia of breast Other specified benign mammary dysplasias 08/22/2018 Other hyperlipidemia 11/21/2018 Primary insomnia Persistent disorder of initiating or maintaining sleep 11/21/2018 Other depression 11/21/2018 Generalized anxiety disorder 11/21/2018 High risk medication use 11/21/2018 Need for influenza vaccination Need for prophylactic vaccination and inoculation against influenza 11/21/2018 Need for hepatitis A vaccination 11/21/2018 Mass of upper inner quadrant of left breast 01/04/2019 Acute midline thoracic back pain 07/26/2019 Other hyperlipidemia 07/26/2019 Primary insomnia Persistent disorder of initiating or maintaining sleep 07/26/2019 Acute midline thoracic back pain 07/26/2019 Memory difficulties Memory loss 07/26/2019 Need for hepatitis A vaccination 07/26/2019 Need for pneumococcal vaccine Need for prophylactic vaccination against streptococcus pneumoniae (pneumococcus) 07/26/2019 Other hyperlipidemia 04/17/2020 Intraductal papilloma 04/17/2020 Primary insomnia Persistent disorder of initiating or maintaining sleep 04/17/2020 Situational mixed anxiety and depressive disorder 04/17/2020 Encounter for screening mammogram for breast cancer 04/17/2020 Abnormal mammogram Abnormal mammogram, unspecified 05/10/2020 Abnormal mammogram Abnormal mammogram, unspecified 05/10/2020 Localized swelling, mass and lump, trunk 06/05/2020 Acute vaginitis Unspecified vaginitis and vulvovaginitis 07/08/2020 Genital lesion, female Other specified disorders of female genital organs 07/08/2020 Dysuria 07/08/2020 High risk heterosexual behavior 07/08/2020 Candidal vaginitis Candidiasis of vulva and vagina 07/10/2020 Candidal vaginitis Candidiasis of vulva and vagina 07/12/2020 Other hyperlipidemia 10/01/2020 Other depression 10/28/2020 Generalized anxiety disorder 10/28/2020 Other hyperlipidemia 12/11/2020 Primary insomnia Persistent disorder of initiating or maintaining sleep 12/11/2020 Situational mixed anxiety and depressive disorder 12/11/2020 Exposure to sexually transmitted disease (STD) Contact with or exposure to venereal diseases 12/11/2020 Need for immunization against influenza Need for prophylactic vaccination and inoculation against influenza 12/11/2020 Need for vaccination for pneumococcus 12/11/2020 Acute left-sided low back pain with left-sided sciatica 02/06/2021 Other hyperlipidemia 04/03/2021 Other depression 04/29/2021 Generalized anxiety disorder 04/29/2021 Other hyperlipidemia 06/25/2021 Primary insomnia Persistent disorder of initiating or maintaining sleep 06/25/2021 Situational mixed anxiety and depressive disorder 06/25/2021 Acute midline low back pain with right-sided sciatica 06/25/2021 Paresthesia of right upper extremity 06/25/2021 Paresthesia of right lower extremity 06/25/2021 Exposure to sexually transmitted disease (STD) Contact with or exposure to venereal diseases 06/25/2021 Encounter for screening mammogram for breast cancer 06/25/2021 Other hyperlipidemia 10/30/2021 Other depression 11/26/2021 Generalized anxiety disorder 11/26/2021 Other hyperlipidemia 12/29/2021 Primary insomnia Persistent disorder of initiating or maintaining sleep 12/29/2021 Situational mixed anxiety and depressive disorder 12/29/2021 Intraductal papilloma 12/29/2021 Urinary urgency Urgency of urination 12/29/2021 Medicare annual wellness visit, initial 02/11/2022 Encounter for health maintenance examination in adult 02/11/2022 Other hyperlipidemia 02/11/2022 Other chest pain 02/11/2022 Intraductal papilloma 02/11/2022 Situational mixed anxiety and depressive disorder 02/11/2022 Urinary urgency Urgency of urination 02/11/2022 Primary insomnia Persistent disorder of initiating or maintaining sleep 02/11/2022 High risk medication use 02/11/2022 Other hyperlipidemia 04/09/2022 Other depression 04/09/2022 Generalized anxiety disorder 04/09/2022 Other depression 07/08/2022 Generalized anxiety disorder 07/08/2022 Other hyperlipidemia 07/08/2022 Urinary urgency Urgency of urination 12/23/2022 Urinary incontinence, unspecified type 12/23/2022 Other depression 12/28/2022 Generalized anxiety disorder 12/28/2022 Other hyperlipidemia 12/28/2022 Urinary tract infection without hematuria, site unspecified 01/18/2023 Urinary urgency Urgency of urination 01/18/2023 Urinary frequency 01/18/2023 Urge incontinence 01/18/2023 Lower urinary tract symptoms (LUTS) 02/22/2023 OAB (overactive bladder) 02/22/2023 Urgency of urination 02/22/2023 Urge incontinence 02/22/2023 Visit for screening mammogram 04/26/2023 Other hyperlipidemia 05/06/2023 Other depression 05/06/2023 Generalized anxiety disorder 05/06/2023 Other hyperlipidemia 05/11/2023 OAB (overactive bladder) 05/11/2023 Primary insomnia Persistent disorder of initiating or maintaining sleep 05/11/2023 Intraductal papilloma 05/11/2023 Menopause Symptomatic menopausal or female climacteric states 05/11/2023 Situational mixed anxiety and depressive disorder 05/11/2023 Bilateral hip pain Pain in joint, pelvic region and thigh 05/11/2023 Chronic pain of left knee 05/11/2023 Leukocytes in urine Other nonspecific finding on examination of urine 05/11/2023 Acute UTI Urinary tract infection, site not specified 05/24/2023 Other hyperlipidemia 06/10/2023 Other depression 06/10/2023 Generalized anxiety disorder 06/10/2023 Other depression 06/10/2023 Generalized anxiety disorder 06/10/2023 Low serum thyroid stimulating hormone (TSH) 07/28/2023 Other hyperlipidemia 07/28/2023 Acute pain of left knee 08/04/2023 Primary osteoarthritis of left knee 08/10/2023 Situational mixed anxiety and depressive disorder 11/02/2023 Other hyperlipidemia 12/17/2023 Dyslipidemia Other and unspecified hyperlipidemia 12/17/2023 Dyslipidemia Other and unspecified hyperlipidemia 01/19/2024 OAB (overactive bladder) 02/22/2024 Urgency of urination 02/22/2024 Dyslipidemia Other and unspecified hyperlipidemia 02/22/2024 Situational mixed anxiety and depressive disorder 05/17/2024 Dyslipidemia Other and unspecified hyperlipidemia 05/17/2024 Medicare annual wellness visit, subsequent 05/30/2024 Encounter for health maintenance examination in adult 05/30/2024 Dyslipidemia Other and unspecified hyperlipidemia 05/30/2024 OAB (overactive bladder) 05/30/2024 Primary insomnia Persistent disorder of initiating or maintaining sleep 05/30/2024 Situational mixed anxiety and depressive disorder 05/30/2024 Chronic pain of left knee 05/30/2024 Menopause Symptomatic menopausal or female climacteric states 05/30/2024 Left knee pain, unspecified chronicity 06/13/2024 Primary osteoarthritis of left knee 06/13/2024 Dyslipidemia Other and unspecified hyperlipidemia 06/19/2024 Situational mixed anxiety and depressive disorder 06/19/2024 Primary osteoarthritis of left knee 08/30/2024 Primary osteoarthritis of left knee 08/30/2024 Primary osteoarthritis of left knee 09/13/2024 Primary osteoarthritis of left knee 09/13/2024 S/P TKR (total knee replacement), left 09/13/2024 Status post total left knee replacement 09/13/2024 Arthritis of knee Unspecified arthropathy, lower leg 09/13/2024 OAB (overactive bladder) 09/13/2024 Situational mixed anxiety and depressive disorder 09/13/2024 Primary insomnia Persistent disorder of initiating or maintaining sleep 09/13/2024 Intraductal papilloma 09/13/2024 Other hyperlipidemia 09/13/2024 Menopause Symptomatic menopausal or female climacteric states 09/13/2024 S/P TKR (total knee replacement), left 09/19/2024 S/P TKR (total knee replacement), left 09/27/2024 Status post total left knee replacement 10/03/2024 Status post total left knee replacement 10/24/2024 Dyslipidemia Other and unspecified hyperlipidemia 12/04/2024 Primary insomnia Persistent disorder of initiating or maintaining sleep 12/04/2024 Situational mixed anxiety and depressive disorder 12/04/2024 OAB (overactive bladder) 12/04/2024 Menopause Symptomatic menopausal or female climacteric states 12/04/2024 Encounter for screening mammogram for breast cancer 12/04/2024 S/P TKR (total knee replacement), left 12/26/2024 Right knee pain, unspecified chronicity 12/26/2024 Primary osteoarthritis of right knee 12/26/2024 Situational mixed anxiety and depressive disorder 12/28/2024 Situational mixed anxiety and depressive disorder 01/18/2025 OAB (overactive bladder) 02/13/2025 Dyslipidemia Other and unspecified hyperlipidemia 03/08/2025 Menopause Symptomatic menopausal or female climacteric states 03/26/2025 Encounter for screening mammogram for breast cancer 03/26/2025 Situational mixed anxiety and depressive disorder 04/17/2025 Right hand pain Pain in soft tissues of limb 06/04/2025 Medicare annual wellness visit, subsequent 06/04/2025 Encounter for health maintenance examination in adult 06/04/2025 Dyslipidemia Other and unspecified hyperlipidemia 06/04/2025 OAB (overactive bladder) 06/04/2025 Primary insomnia Persistent disorder of initiating or maintaining sleep 06/04/2025 Situational mixed anxiety and depressive disorder 06/04/2025 Intraductal papilloma 06/04/2025 Age-related osteoporosis without current pathological fracture 06/04/2025 Right hand pain Pain in soft tissues of limb 06/04/2025 Leukocytes in urine Other nonspecific finding on examination of urine 06/04/2025 Right hand pain Pain in soft tissues of limb 06/22/2025 Paresthesias in right hand Disturbance of skin sensation 06/22/2025 Weakness of right hand Muscle weakness (generalized) 06/22/2025 Situational mixed anxiety and depressive disorder 07/03/2025 Arthritis of carpometacarpal (CMC) joint of right thumb 08/22/2025 Primary osteoarthritis of left knee 09/13/2024 Arthritis of knee Unspecified arthropathy, lower leg 09/13/2024 Status post total left knee replacement 09/13/2024 Hyperlipidemia Other and unspecified hyperlipidemia 09/13/2024 Goals Goal Patient Goal Type Associated Problems Recent Progress Patient-Stated? Author Autogenera lara Goal Care Plan Autogenerated Problem No Adán Contreras MD Additional Health Concerns Active Problems Noted Date Diagnosed Date Autogenerated Problem 07/11/2025 Care Teams Director Targeted Marketing Relationship Specialty Start Date End Date Faina Benson MD [address] [place] [address] PCP - General Internal Medicine 09/15/16
--- OUTSIDE RECORDS SUMMARY | 2025-09-06 12:58 | XMS_ITS | Encounter Summary ---
[facility] Address [address] [place] [address] Care Team Providers Care Detention Deputy Name Role Phone Faina Benson MD Primary Care Provider [phone] Reason for Visit * Reason Comments Med Refill Encounter Details Date Type Department Care Team (Late Contact Info) Description 06/10/[address] [facility]AT[facility] 100 [facility] 200 [place] [address] Faina Benson MD 100 [facility] [address] [place] [address] Other hyperlipidemia; Other depression; Generalized anxiety disorder Social History Tobacco Use Types Packs/Day Years Used Date Smoking Tobacco: Never Passive Smoke Exposure: Never Smokeless Tobacco: Never Alcohol Use Standard Drinks/Week Comments Yes 0 (1 standard drink = 0.6 oz pure alcohol) 1 glass of wine twice per month PHQ-2 Answer Date Recorded Retired PHQ-9: Brief Depression Severity Measure Score 0 05/11/2023 PHQ-2 Answer Date Recorded Retired PHQ-9: Brief Depression Severity Measure Score 0 05/11/2023 Comments No Sex and Gender Information Value [...] Encounters Date Type Department Care Team (Late Contact Info) Description 09/18/2025 8:00 AM EST Office Visit [facility] [address] [address] Adán Contreras MD [address] [address] 11/27/2025 8:30 AM EST Office Visit [facility]AT[facility] 100 [facility] [address] [place] [address] Faina Benson MD 100 [facility] [address] [place] [address] 12/05/2025 3:00 PM EST Office Visit [facility] [address] [address] Lul Mckeon MD [address] [address] documented as of this encounter Visit Diagnoses Diagnosis Other hyperlipidemia Other depression Generalized anxiety disorder documented in this encounter Care Teams Detention Deputy Relationship Specialty Start Date End Date Faina Benson MD [address] [address] PCP - General Internal Medicine 09/15/16 documented as of this encounter
--- OUTSIDE RECORDS SUMMARY | 2025-09-06 12:58 | XMS_ITS | Clinical Summary ---
Author Organization Healthcare Address [address] [place] [address] Care Team Providers Care Sailmaker Name Role Phone Pcp, No Primary Care Provider Unavailabl e Family History Medical History Relation Name Comments Conversions - Other Brother Hearing deficit Coronary artery disease Father Stroke Mother Relation Name Status Comments Brother Father Mother Social History Tobacco Use Types Packs/Day Years Used Date Smoking Tobacco: Passive Smo ke Exposure - Never Smoker Alcohol Use Standard Drinks/Week Comments No 0 (1 standard drink = 0.6 oz pur e alcohol) Comments Unknown Sex and Gender Information Value Date Recorded Sex Assigned at Not on file Legal Sex Female 7:33 PM EDT Gender Identity Not on file Sexual Orientation Not on file Last Filed Vital Signs Vital Sign Reading Time Taken Comments Blood Pressure - - Pulse - - Temperature - - Respiratory Rate - - Oxygen Saturation - - Inhaled Oxygen Concentration - - Weight 86.2 kg (189 lb 15.9 oz) 01/13/2017 8:31 AM EST Height 172.7 cm (5' 8 ) 01/13/2017 8:31 AM EST Body Mass Index 28.89 01/13/2017 8:31 AM EST Plan of Treatment Health Maintenance Due Date Last Done Comments [facility]-Bone Density Scan 1954 [facility]-Depression Screening 1954 [facility]-Hepatitis C Screening 1954 [facility]-Medicare Annual Wellness (AWV) 1954 [facility]-/Child/Adol SDOH Screenings 1954 [facility]- SDOH Screenings 1972 [facility]-Adult SDOH Screenings 1972 [facility]-DTaP,Tdap,and Td Vaccines (1 - Tdap) 1973 CT Colonography 1999 FIT-DNA 1999 FIT 1999 FOBT 1999 Sigmoidoscopy 1999 [facility]-Breast Cancer Screening 2004 [facility]-Zoster Vaccines (1 of 2) 2004 [facility]-[id number] Vaccine ( season) 2025 09/18/2022, 04/01/2022, 12/23/2021, Additional history exists [facility]-Influenza Vaccine (#1) 07/16/202509/18, 12/23/2021, 12/11/2020, Additional history exists Colonoscopy 08/11/2027 08/11/2017 [facility]-Colorectal Cancer Screening 08/11/2027 [facility]-RSV Vaccine: 60+ Years or (1 - 1-dose 75+ series) 2029 [facility]-Hepatitis A Vaccines Aged Out 07/26/2019, 05/2019 No longer eligible based on patient's age to complete this topic [facility]-Pneumococcal Vaccine: 50+ Years Completed 12/11/2020, 07/26/2019 HPV Vaccines Aged Out No longer eligi ble based on patient's age to complete this topic [facility]-HIB Vaccines Aged Out No longer e ligible based on patient's age to complete this topic [facility]-IPV Vaccines Aged Out No longer e ligible based on patient's age to complete this topic [facility]-Rotavirus Vaccines Aged Out No lo nger eligible based on patient's age to complete this topic Procedures Procedure Name Priority Date/Time Associated Diagnosis Comments COLONOSCOPY 08/11/2017 from Last 3 Months or Most Recently Relevant to Health Maintenance Results * COLONOSCOPY (08/11/2017) Anatomical Region Laterality Modality Endoscopy Narrative 08/11/2017 Ordered by an unspecified provider. us Historical Provider GI PROCEDURE ORDERABLES Betty l Result from Last 3 Months or Most Recently Relevant to Health Maintenance Insurance [employer] Care Teams Sailmaker Relationship Specialty Start Date End Date Pcp, Aminta [address] [place] [address] PCP - General Family Medicine 05/13/23
--- OUTSIDE RECORDS SUMMARY | 2025-09-06 12:58 | XMS_ITS | Encounter Summary ---
[facility] Address [address] [place] [address] Care Team Providers Care Business Process Representative Name Role Phone Faina Benson MD Primary Care Provider [phone] Encounter Details Date Type Department Care Team (Late st Contact Info) Description 06/30/2025 Telephone [facility] & [facility]ATR[facility] 100 [facility] 200 [place] [address] Faina Benson MD 100 [facility] [address] [place] [address] Social History Tobacco Use Types [...] or training? Not on file Preferred Language Lithuanian 08/30/2024 PHQ-2 Answer Date Recorded Patient Health [...] on file documented as of this encounter Miscellaneous Notes * Telephone Encounter - Faina Benson MD - 07/08/2025 2:32 PM EDT Noted. * Telephone Encounter - La Nena Denny MA - 07/02/2025 11:16 AM EDT Spoke with patient and she verbally understood. Patient stated she will get back with us once she has decided if she wants to move forward on seeing a hand surgeon. * Telephone Encounter - Faina Benson MD - 06/30/2025 8:10 PM EDT Call patient please. Her right upper extremity EMG did show right carpal tunnel syndrome and also right ulnar neuropathy. If she is still having hand pain, I would recommend a referral to a hand surgeon. If she does wanta referral, please route the message back to me and not the covering provider and I will enter an order. documented in this encounter Plan of Treatment Upcoming Encounters Date Type Department Care Team (Late st Contact Info) Description 09/18/2025 8:00 AM EST Office Visit [facility] 1760 [facility] 101 [place] [address] Adán Contreras MD 1760 [facility] [address] [place] [address] 11/27/2025 8:30 AM EST Office Visit [facility] [address] [place] [address] [address] [place] [address] Faina Benson MD 100 [facility] [address] [place] [address] 12/05/2025 3:00 PM EST Office Visit [facility] 1760 [facility] 101 [place] [address] Lul Mckeon MD 1760 [facility] [address] [place] [address] documented as of this encounter Visit Diagnoses Not on filedocumented in this encounter Additional Health Concerns Assessment Noted Time PHQ-2 Depression Total Score: 1 05/30/20 24 8:32 AM EDT documented as of this encounter Care Teams Business Process Representative Relationship Specialty Start Date End Date Faina Benson MD 100 [facility] 200 [place] [address] PCP - General Internal Medicine 09/15/16 documented as of this encounter
== END 2025-09-05 23:59 | disposition home or self-care (01) ==
LOC: LAB.DROPOF 09-06 12:52
PROVIDERS: PCP Student in an Organized Health Care Education/Training Program; Visit Provider Student in an Organized Health Care Education/Training Program
DX: R52 Pain, unspecified (principal)
CPT/HCPCS: 87636